=== PATIENT | female | born 1940 | race Caucasian/White ===

== ENCOUNTER 2019-04-28 09:06 | Outpatient (REF) | payer MEDICARE, SELFPAY ==
[2019-04-28 12:30] LABS: Estmated Average Glucose 157; Hemoglobin A1C 7.1 % (4.0-6.0)
[2019-04-28 12:43] LABS: Chol HDL Ratio 3.46 mg/dL (0.0-4.40); Cholesterol 97 mg/dL (0-200); Glucose 153 mg/dL (65-115); HDL Cholesterol 28 mg/dL (60-100); LDL Cholesterol Calculated 37 mg/dL (50-129); LDL HDL Ratio 1.32 RATIO (0.00-3.22); Triglycerides 160 mg/dL (0-150)
== END 2019-04-28 09:07 | disposition home or self-care (01) ==
LOC: LAB 09:06
PROVIDERS: Family Provider Family Medicine; PCP Family Medicine; Visit Provider Dermatology
DX: Z01.89 Encounter for other specified special examinations (principal)
CPT/HCPCS: 80061; 82947; 83036

== ENCOUNTER 2019-11-16 10:36 | Emergency (ER) | payer MEDICARE, SELFPAY ==
[2019-11-16 10:42] VITALS: BP 140/74; PULSE 84; RESP 18; TEMP 36.8; O2SAT 97; BMI 34.0
--- NOTE | 2019-11-16 10:50 | XR_ITS ---
WS: [id number] Sacrum and coccyx, 3 views, 11/16/2019 Clinical Data: fall Comparison: None. Findings: No fractures or dislocations are seen. The SI joints and pubic symphysis are unremarkable. No bone de struction or erosion is seen. There is calcification in the wall of the abdominal aorta and the common iliac vessels but no aneurys ms are seen. XR/XR sacrum coccyx min 2V [id number] Impression: Negative sacrum and coccyx.
--- NOTE | 2019-11-16 10:50 | CT_ITS ---
WS: [id number] CT HEAD TECHNIQUE: Noncontrast CT of the head obtained from the skullbase to the vertex. CLINICAL INFORMATION: fall, head injury COMPARISON: None. DLP: 1006.[address] scans at [facility] use at least one of these dose optimization techniques: automat ed exposure control; mA and/or kV adjustment per patient size (includes targeted exams where dose is matched to clinical indication); or iterative reconstruction. FINDINGS: No evidence of intracranial hemorrhage or mass effect. Ventricular system and basal cisterns are sage nt. Moderate small vessel changes with moderate parenchymal volume loss. Chronic lacunar infarcts lef t basal ganglia. No extra-axial fluid collections. No evidence of mass or mass effect. Normal tapia-wh ite differentiation. Soft tissue laceration with hollis overlying the parietal occipital calvarium. No underlying fractur es. CT/CT head wo con* [id number] IMPRESSION: 1. No evidence of intracranial hemorrhage or mass effect. 2. [id number] small vessel changes. Moderate parenchymal volume loss. 3. Soft tissue laceration with hollis parietal occipital calvarium. No underl sue fractures. 4. No extra-axial fluid collections. Notified ZENIA Burks at 11/16/2019 12:52 PM.
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
--- NOTE | 2019-11-16 11:02 | W.ED.FALL ---
HPI - Fall General: Chief Complaint: Fall Stated Complaint: FALL Time Seen by Provider: 11/16/19 10:37 History of Present Illness: HPI Narrative: Patient get out of truck going upstairs she fell backwards striking her left shoulder and the back of her head and sacrum. Complains about mid back pain and possible laceration head did arrive by ambulance. complaint: fall Onset (ago): minute(s) Fall from: standing and down stairs (#) Fall witnessed: yes, by family Place fall occurred: home Loss of consciousness: None Prolonged down time: no Symptoms prior to fall: none Context: tripped/slipped Location of injury: head and back Associated symptoms-after fall: Denies abdominal pain, chest pain or headache(s) Review of Systems Const: Denies: fever(s), chills or body aches Eyes: Denies: change in vision or blurry vision ENMT: Denies: throat pain or nasal congestion Card: Denies: chest pain or dyspnea on exertion Resp: Denies: dyspnea, productive cough or non-productive cough GI: Denies: abdominal pain, nausea or vomiting Musc: Reports: back pain; Denies: extremity pain Skin/Breast: Reports: other (Laceration possibly scalp); Denies: rash Neuro: Denies: headache(s) Psych: Denies: anxiety or depression Mingo/Lymph: Denies: easy bruising Physical Exam Const: COMMON NORMALS: no acute distress, average body habitus and patient oriented x3 HENMT: COMMON NORMALS: normocephalic HEAD & SCALP: normal to inspection and normocephalic FACE & SINUS: normal facial exam Eye: COMMON NORMALS: conjunctivae normal GENERAL EYE: appearance normal, both eyes and all related structures CONJUNCTIVA: Yes conjunctivae normal Neck/C-Spine: COMMON NORMALS: no JVD Chest: COMMONS NORMALS: normal inspection of the chest Resp: COMMON NORMALS: normal respiratory effort and clear to auscultation bilaterally AUSCULTATION: clear to auscultation bilaterally Cardio: COMMON NORMALS: no JVD, regular rate and regular rhythm RATE: regular rate RHYTHM: regular rhythm GI: COMMON NORMALS: Normal to inspection, nondistended, normoactive bowel sounds present Back/Pelvis: THORACIC SPINE/UPPER BACK: Yes thoracic spinal tenderness SACRUM: tenderness Extremity: COMMON NORMALS: normal to inspection and full ROM Neuro: COMMON NORMALS: patient oriented x3 Skin: NARRATIVE SKIN EXAM: Abrasion to the left shoulder blade possible laceration to scalp Procedures Laceration Laceration 1: Site: scalp Size (cm): 1 Description: stellate Number of sutures: 1 Technique: other (staple) Course Vital Signs: Vital signs: Vital Signs Temperature 98.3 F 11/16/19 10:42 Pulse Rate 84 11/16/19 10:42 Respiratory Rate 18 11/16/19 10:42 Blood Pressure 140/74 11/16/19 10:42 Pulse Oximetry 97 11/16/19 10:42 Coding Level of Care Code ED Social Media Designer for Chg Fwd Exam Comprehensive
[2019-11-16] MEDS: TRAMadol 50 mg Tablet PO (12:02)
[2019-11-16 12:05] VITALS: BP 131/70; PULSE 87; RESP 18; O2SAT 97
[2019-11-16 13:07] VITALS: BP 132/72; PULSE 85; RESP 18; TEMP 36.6; O2SAT 96
== END 2019-11-16 13:11 | disposition home or self-care (01) ==
PROVIDERS: Emergency Provider Nurse Practitioner Family; PCP Family Medicine
DX: S01.01XA Laceration without foreign body of scalp, initial encounter (principal); W10.8XXA Fall (on) (from) other stairs and steps, initial encounter
CPT/HCPCS: 12001; 12345; 70450; 72072; 72220; 99281; 99283

== ENCOUNTER 2021-01-19 21:33 | Emergency (ER) | payer MEDICARE, SELFPAY ==
[2021-01-19] VITALS (28 sets, daily range): BP systolic 92–125; BP diastolic 39–62; PULSE 97–106; RESP 18–33; O2SAT 85–96; BMI 32.5
--- NOTE | 2021-01-19 21:37 | XRR_ITS ---
PROCEDURE INFORMATION: Exam: XR Chest Exam date and time: 01/19/2021 9:37 PM Age: 80 years old Clinical indication: Dyspnea; Additional info: SOB TECHNIQUE: Imaging protocol: XR of the chest. Views: 1 view. Total images: 1 COMPARISON: CR XR thoracic spine 3V* [id number] 11/16/2019 11:08 AM FINDINGS: Lungs: No definitive visible active interstitial or alveolar airspace disease. Pleural spaces: Unremarkable. No pleural effusion. No pneumothorax. Heart/Mediastinum: Cardiac structures in configuration with arteriosclerosis. Bones/joints: Unremarkable for age. XR/XR chest 1V portable [id number] IMPRESSION: Nonacute. Radiation Dose CTDIVOL = (mGy): DLP = (mGy-cm)
--- NOTE | 2021-01-19 21:37 | ECG_ITS ---
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1940 Requested By: Francesca Sewell Order Number: [id number] Reading MD: TANIA PARKINSON Measurements Intervals [place] Rate: 104 P: -1 MD: 161 QRS: -52 QRSD: 112 T: -11 QT: 388 QTc: 511 Interpretive Statements SINUS TACHYCARDIA INCOMPLETE RIGHT BUNDLE BRANCH BLOCK [90+ ms QRS DURATION, TERMINAL R IN V1/V2, 40+ ms S IN I/aVL/V4/V5/V6] LEFT ANTERIOR FASCICULAR BLOCK [QRS AXIS <= -45, QR IN I, RS IN II] POSSIBLE ANTERIOR MYOCARDIAL INFARCTION , PROBABLY OLD [30 ms Q WAVE IN V3/V4, OR R < 0.2 mV IN V4] No previous ECG available for comparison Electronically Signed On 01-20-2021 0:10:14 CDT by TANIA PARKINSON [id number]
--- NOTE | 2021-01-19 21:44 | W.ED.COVID ---
HPI - COVID General: Chief Complaint: COVID symptoms Stated Complaint: COVID +/AFIB RVR Time Seen by Provider: 01/19/21 21:33 Source: patient Mode of arrival: ambulatory Limitations: no limitations Triage information: Has fever, cough or shortness of breath. Exposure to COVID + person last 14 days History of Present Illness: HPI Narrative: 80-year-old female who states she was diagnosed with Covid last Wednesday. States she had increasing cough dyspnea and felt weak tonight was tachycardic EMS states that her heart rate was in the 160s to give her Cardizem it is now 105 incised tach questionable A. fib earlier she has no history of A. fib. She denies any vomiting or diarrhea patient's pulse ox is in the mid 80s COVID 19 common symptoms: positive productive cough and dyspnea; negative fever(s), chills, body aches, headache(s), throat pain, nausea, vomiting or diarrhea COVID Results: No Data to Display Review of Systems Const: Denies: fever(s), chills, body aches or change in appetite Eyes: Denies: blurry vision or eye discomfort ENMT: Denies: throat pain or dental pain Card: Reports: irregular heart rhythm Resp: Reports: dyspnea and productive cough GI: Denies: abdominal pain, nausea, vomiting or diarrhea : Denies: dysuria Musc: Denies: neck pain or back pain Skin/Breast: Denies: rash Neuro: Denies: headache(s) Psych: Denies: depression Mingo/Lymph: Denies: easy bruising All/Imm: Denies: urticaria PFSH ED PFSH: Medical History Coronary artery disease Diabetes Hypercholesterolemia Hypertension Sleep apnea Surgical History H/O: hysterectomy History of PTCA History of tonsillectomy Hx of cholecystectomy Family History Father Hypertension Social History Smoking and tobacco status: former smoker Physical Exam Const: COMMON NORMALS: patient oriented x3 GENERAL APPEARANCE: ill appearing HENMT: COMMON NORMALS: normocephalic and atraumatic HEAD & SCALP: normocephalic and atraumatic Eye: COMMON NORMALS: Equal, round and reactive pupils present and EOMs intact bilaterally PUPIL: Yes Equal, round and reactive pupils present Neck/C-Spine: COMMON NORMALS: full ROM and supple Chest: COMMONS NORMALS: normal inspection of the chest and normal palpation of entire chest wall Resp: COMMON NORMALS: No use of accessory muscles EFFORT & INSPECTION: Yes tachypneic AUSCULTATION: rales Cardio: COMMON NORMALS: regular rhythm and No murmurs present (Cardio) RATE: tachycardic RHYTHM: regular rhythm GI: COMMON NORMALS: Normal to inspection, nondistended, normoactive bowel sounds present, Soft to palpation, non-tender and no masses PALPATION: Yes Soft to palpation Extremity: COMMON NORMALS: normal to inspection and full ROM Neuro: COMMON NORMALS: patient oriented x3, moves all extremities and no focal motor deficits Psych: COMMON NORMALS: mental status grossly normal, Normal thought process present and cooperative THOUGHT PROCESS: Normal thought process present Skin: COMMON NORMALS: no rashes or lesions noted and no wounds GENERAL SKIN EXAM: no rashes or lesions noted Course Vital Signs: Vital signs: Vital Signs Pulse Rate 106 H 01/19/21 22:59 Respiratory Rate 20 H 01/19/21 22:59 Blood Pressure 92/62 01/19/21 21:38 Pulse Oximetry 96 01/19/21 23:17 MDM - COVID MDM Narrative: Medical decision making narrative: Patient presents here with Covid pneumonia increasing hypoxia her tachycardia is improved her heart rate now is in the 90s patient is requiring 3 L of oxygen. I spoke to physician at [facility] in [place] and will transfer there due to bed availability. Lab Data: Labs: Lab Results 01/19/21 01/19/21 01/19/21 21:43 21:43 21:43 WBC 16.3 10^3/uL H 10 ^3/uL (4.0-10.0) RBC 3.48 10^6/uL L 10 ^6/uL (4.1-5.3) Hgb 11.8 g/dL g/dL (11.5-15.3) Hct 35.2 % L % (37.0-47.0) MCV 101.1 fl H fl (81-99) MCH 33.9 pg pg (28.0-34.0) MCHC 33.5 g/dL g/dL (30.0-36.0) RDW 14.1 % % (12.1-15.1) Plt Count 285 10^3/cmm 10^3 /cmm (130-400) MPV 12.3 fL H fL (7.4-10.4) Neut % (Auto) 88.9 % % Lymph % (Auto) 5.3 % % Johnson % (Auto) 4.1 % % Eos % (Auto) 0.5 % % Baso % (Auto) 0.2 % % Neut # (Auto) 14.53 10^3/uL H 1 0^3/uL (1.8-7.7) Lymph # (Auto) 0.9 10^3/uL 10^3/ uL (0.8-4.8) Johnson # (Auto) 0.7 10^3/uL 10^3/ uL (0.2-0.9) Eos # (Auto) 0.1 10^3/uL 10^3/ uL (0.0-0.8) Baso # (Auto) 0.0 10^3/uL 10^3/ uL (0.0-0.1) Nucleated RBC % (a uto) 0 % % Nucleated RBCs # 0.0 /100WBC /100W BC PT 15.20 SECONDS H S ECONDS (12.1-14.9) INR 1.17 (0.8-1.2) D-Dimer 2.04 ug/mIFEU H u g/mIFEU (0-0.59) Specimen Type Sample Site ABG pH ABG pCO2 ABG pO2 ABG HCO3 ABG Base Excess Magno Test Hematocrit O2 Delivery Device O2 Liters/Min FiO2 Passenger Service Agent ID Sodium 128 mmol/L L mmol /L (136-145) Potassium 4.8 mmol/L mmol/L (3.5-5.1) Chloride 93 mmol/L L mmol/ L (98-107) Carbon Dioxide 18 mmol/L L mmol/ L (22-29) Anion Gap 21.8 H (5-19) BUN 28 mg/dL H mg/dL (8-23) Creatinine 1.2 mg/dL H mg/dL (0.5-0.9) GFR Calculation Not Reportable Glucose 173 mg/dL H mg/dL (65-115) Calculated Osmolal ity 276 mOsm/kg L mOs m/kg (285-295) Lactic Acid Calcium 8.5 mg/dL mg/dL (8.5-10.5) Total Bilirubin 0.5 mg/dL mg/dL (0.15-1.2) AST 28 U/L U/L (0-32) ALT 19 U/L U/L (0-33) Alkaline Phosphata se 78 IU/L IU/L (35-105) C-Reactive Protein 192.0 mg/L H mg/L (0.0-4.9) NT-Pro-B Natriuret Pep 1371 pg/mL H pg/m L (0-450) Total Protein 6.1 g/dL L g/dL (6.6-8.7) Albumin 2.8 g/dL L g/dL (3.5-5.2) Globulin 3.3 g/dL g/dL (1.3-4.6) 01/19/21 01/19/21 22:50 22:55 WBC RBC Hgb Hct MCV MCH MCHC RDW Plt Count MPV Neut % (Auto) Lymph % (Auto) Johnson % (Auto) Eos % (Auto) Baso % (Auto) Neut # (Auto) Lymph # (Auto) Johnson # (Auto) Eos # (Auto) Baso # (Auto) Nucleated RBC % (a uto) Nucleated RBCs # PT INR D-Dimer Specimen Type Arterial Sample Site Radial, right ABG pH 7.33 L (7.35-7.45) ABG pCO2 33.0 mmHg L mmHg (35-45) ABG pO2 65.4 mmHg L mmHg (80.0-100.0) ABG HCO3 17.4 mmol/L L mmo l/L (22-26) ABG Base Excess -7.5 mmol/L L mmo l/L (-2.0-2.0) Magno Test Pos Hematocrit 37.6 % % (37-47) O2 Delivery Device Nc O2 Liters/Min 4.0 % % FiO2 36.0 % % Passenger Service Agent ID glc Sodium Potassium Chloride Carbon Dioxide Anion Gap BUN Creatinine GFR Calculation Glucose Calculated Osmolal ity Lactic Acid 3.1 mmol/L H mmol /L (0.5-2.2) Calcium Total Bilirubin AST ALT Alkaline Phosphata se C-Reactive Protein NT-Pro-B Natriuret Pep Total Protein Albumin Globulin Imaging Data: CT Chest: Attestation: I personally reviewed and interpreted this imaging study as follows: Radiologist's impression: [employer] [facility] [address] [place] [address] CT Scan Report Signed Patient: Analia Gotti Unit #: [id number] : 1940 Age/Sex: 80 / F ADM Date: 01/19/21 Loc: ER Room/Bed: Attending Dr: Ordering Provider/Ordering MD: Francesca Sewell MD Date of Service: 01/19/21 Procedure(s): CT angio chest PE protcl [id number] Accession Number(s): [id number] Report Number: [id number] The PROCEDURE INFORMATION: Exam: CTA Chest With Contrast Exam date and time: 01/19/2021 10:14 PM Age: 80 years old Clinical indication: Cough and shortness of breath; Patient HX: Covid+ w SOB TECHNIQUE: Imaging protocol: Computed tomographic angiography of the chest with contrast. 3D rendering (Not supervised by radiologist): MIP and/or 3D reconstructed images were created by the technologist. Total images: 798 Radiation optimization: All CT scans at this facility use at least one of these dose optimization techniques: automated exposure control; mA and/or kV adjustment per patient size (includes targeted exams where dose is matched to clinical indication); or iterative reconstruction. Contrast material: VISI 320; Contrast volume: 69 ml; Contrast route: INTRAVENOUS (IV); COMPARISON: CR (CHEST, ) 01/19/2021 10:12 PM RADIATION DOSE METRICS: Total DLP (mGy-cm): 513.06 FINDINGS: Pulmonary arteries: No visible evidence of pulmonary embolism/pulmonary arterial thrombus. Aorta: The thoracic aorta is nonaneurysmal. No visible intimal flap or dissection. Moderate arterial sclerotic disease. Thyroid: Small 11 mm nodule inferior pole left thyroid. No follow-up recommended. Lungs: Bilateral, predominantly peripheral, patches of ground-glass interstitial lung disease opacification consistent with active interstitial pneumonitis. Overall constellation of findings would be consistent with Covid-19 pneumonitis. No visible consolidated alveolar airspace disease. Pleural spaces: No pneumothorax. No pleural effusion. Heart: Mild cardiomegaly. No visible pericardial effusion. Advanced 3 vessel coronary artery disease. Lymph nodes: Few marginally prominent mediastinal and hilar lymph nodes most likely reactive in nature. Liver: Small simple cyst medial segment right hepatic lobe. Gallbladder and bile ducts: Status post cholecystectomy. Adrenal glands: Small left adrenal nodule measuring 13 mm. Right adrenal gland unremarkable. Kidneys and ureters: Simple cyst superior pole left kidney. Bones/joints: No visible acute osseous abnormality. Degenerative disease and degenerative disc disease of the spine. Soft tissues: Unremarkable. CT/CT angio chest PE protcl [id number] IMPRESSION: 1. No visible evidence of pulmonary embolism/pulmonary arterial thrombus. 2. Bilateral, predominantly peripheral, patches of ground-glass interstitial lung disease opacification consistent with active interstitial pneumonitis. Overall constellation of findings would be consistent with Covid-19 pneumonitis. 3. Advanced 3 vessel coronary artery disease. 4. Few marginally prominent mediastinal and hilar lymph nodes most likely reactive in nature. 5. Small left adrenal nodule measuring only 13 mm. Consider 12 month follow-up adrenal CT. (Reference: Kathya) COMMENTS: 1. Consistent with the [place] [employer] [employer]'s Incidental Findings Committee white paper (J Am Johnny Radiol 2015): In patients aged 35 years and older with an incidental thyroid nodule equal to or greater than 1.[address], MRI or extrathyroidal US, further evaluation with dedicated thyroid US is recommended for patients with normal life expectancy and without comorbidities. For smaller nodules without suspicious features, no further evaluation or follow up is recommended. 2. Consistent with the [place] [employer]'s Incidental Findings Committee white paper (J Am Johnny Radiol 2018): Any incidental renal lesion less than 1 cm or classified as too small to characterize, or any incidental cystic renal lesion characterized as simple-appearing, is likely benign. No follow-up imaging is recommended for these lesions per consensus recommendations based on imaging criteria. REFERENCES: Kathya ROMERO, et al. Management of Incidental Adrenal Masses: A White Paper of the ACR Incidental Findings Committee. J Am Johnny Radiol. 2017;14(8):4085-4221. Radiation Dose CTDIVOL = (mGy): DLP = 513.06 (mGy-cm) Dictated By: Jp Owens Signed By: Jp Owens Signed Date/Time: 01/20/21 0007 DD/ 2214 EKG Data: EKG 1: Attestation: I personally reviewed and interpreted this EKG as follows: EKG interpretation date: 01/19/21 EKG interpretation time: 21:43 Interpretation: sinus tach hr [address] or t wave abnormalities qrs 112 [id number] COVID Results: No Data to Display Discharge Plan Discharge Patient Disposition: Xfer Short-Term Hosp Clinical Impression: Pneumonia due to 2019-nCoV Condition: Stable Referrals: Angi Gan DO [Primary Care Provider] - Coding Level of Care Code ED Naval Aircrewman for Chg Fwd Exam Comprehensive
[2021-01-19 21:58] LABS: Basophils % 0.2 %; Eosinophils # 0.1 10^3/uL (0.0-0.8); Eosinophils % 0.5 %; Hematocrit 35.2 % (37.0-47.0); Hemoglobin 11.8 g/dL (11.5-15.3); Lymphocytes # 0.9 10^3/uL (0.8-4.8); Lymphocytes % 5.3 %; Mean Corpuscular HGB Conc 33.5 g/dL (30.0-36.0); Mean Corpuscular Hemoglobin 33.9 pg (28.0-34.0); Mean Corpuscular Volume 101.1 fl (81-99); Mean Platelet Volume 12.3 fL (7.4-10.4); Monocytes # 0.7 10^3/uL (0.2-0.9); Monocytes % 4.1 %; Neutrophils # 14.53 10^3/uL (1.8-7.7); Neutrophils % 88.9 %; Nucleated Red Blood Cells % 0 %; Platelet Count 285 10^3/cmm (130-400); Red Blood Count 3.48 10^6/uL (4.1-5.3); Red Cell Distribution Width 14.1 % (12.1-15.1); White Blood Count 16.3 10^3/uL (4.0-10.0)
[2021-01-19 22:10] LABS: INR 1.17 (0.8-1.2)
[2021-01-19] MEDS: dexamethasone 4 mg/mL INJ 6 MG IVP (22:11)
[2021-01-19] MEDS: sodium chloride 0.9% 1,000 ML 999 ML IV (22:11)
[2021-01-19 22:12] LABS: D Dimer 2.04 ug/mIFEU (0-0.59)
--- NOTE | 2021-01-19 22:14 | CTR_ITS ---
The PROCEDURE INFORMATION: Exam: CTA Chest With Contrast Exam date and time: 01/19/2021 10:14 PM Age: 80 years old Clinical indication: Cough and shortness of breath; Patient HX: Covid+ w SOB TECHNIQUE: Imaging protocol: Computed tomographic angiography of the chest with contrast. 3D rendering (Not supervised by radiologist): MIP and/or 3D reconstructed images were created by the technologist. Total images: 798 Radiation optimization: All CT scans at this facility use at least one of these dose optimization techniques: automated exposure control; mA and/or kV adjustment per patient size (includes targeted exams where dose is matched to clinical indication); or iterative reconstruction. Contrast material: VISI 320; Contrast volume: 69 ml; Contrast route: INTRAVENOUS (IV); COMPARISON: CR (CHEST, ) 01/19/2021 10:12 PM RADIATION DOSE METRICS: Total DLP (mGy-cm): 513.06 FINDINGS: Pulmonary arteries: No visible evidence of pulmonary embolism/pulmonary arterial thrombus. Aorta: The thoracic aorta is nonaneurysmal. No visible intimal flap or dissection. Moderate arterial sclerotic disease. Thyroid: Small 11 mm nodule inferior pole left thyroid. No follow-up recommended. Lungs: Bilateral, predominantly peripheral, patches of ground-glass interstitial lung disease opacification consistent with active interstitial pneumonitis. Overall constellation of findings would be consistent with Covid-19 pneumonitis. No visible consolidated alveolar airspace disease. Pleural spaces: No pneumothorax. No pleural effusion. Heart: Mild cardiomegaly. No visible pericardial effusion. Advanced 3 vessel coronary artery disease. Lymph nodes: Few marginally prominent mediastinal and hilar lymph nodes most likely reactive in nature. Liver: Small simple cyst medial segment right hepatic lobe. Gallbladder and bile ducts: Status post cholecystectomy. Adrenal glands: Small left adrenal nodule measuring 13 mm. Right adrenal gland unremarkable. Kidneys and ureters: Simple cyst superior pole left kidney. Bones/joints: No visible acute osseous abnormality. Degenerative disease and degenerative disc disease of the spine. Soft tissues: Unremarkable. CT/CT angio chest PE protcl [id number] IMPRESSION: 1. No visible evidence of pulmonary embolism/pulmonary arterial thrombus. 2. Bilateral, predominantly peripheral, patches of ground-glass interstitial lung disease opacification consistent with active interstitial pneumonitis. Overall constellation of findings would be consistent with Covid-19 pneumonitis. 3. Advanced 3 vessel coronary artery disease. 4. Few marginally prominent mediastinal and hilar lymph nodes most likely reactive in nature. 5. Small left adrenal nodule measuring only 13 mm. Consider 12 month follow-up adrenal CT. (Reference: Kathya) COMMENTS: 1. Consistent with the [employer]'s Incidental Findings Committee white paper (J Am Johnny Radiol 2015): In patients aged 35 years and older with an incidental thyroid nodule equal to or greater than 1.[address], MRI or extrathyroidal US, further evaluation with dedicated thyroid US is recommended for patients with normal life expectancy and without comorbidities. For smaller nodules without suspicious features, no further evaluation or follow up is recommended. 2. Consistent with the [employer]'s Incidental Findings Committee white paper (J Am Johnny Radiol 2018): Any incidental renal lesion less than 1 cm or classified as too small to characterize, or any incidental cystic renal lesion characterized as simple-appearing, is likely benign. No follow-up imaging is recommended for these lesions per consensus recommendations based on imaging criteria. REFERENCES: Kathya ROMERO, et al. Management of Incidental Adrenal Masses: A White Paper of the ACR Incidental Findings Committee. J Am Johnny Radiol. 2017;14(8):3109-9135. Radiation Dose CTDIVOL = (mGy): DLP = 513.06 (mGy-cm)
[2021-01-19 22:25] LABS: Alanine Aminotransferase 19 U/L (0-33); Albumin Level 2.8 g/dL (3.5-5.2); Alkaline Phosphatase 78 IU/L (35-105); Anion Gap 21.8 (5-19); Aspartate Amino Transferase 28 U/L (0-32); Blood Urea Nitrogen 28 mg/dL (8-23); Calcium 8.5 mg/dL (8.5-10.5); Carbon Dioxide 18 mmol/L (22-29); Chloride 93 mmol/L (98-107); Globulin 3.3 g/dL (1.3-4.6); Glucose 173 mg/dL (65-115); NT Pro B Type Natriuretic Pept 1371 pg/mL (0-450); Osmolality Calculated 276 mOsm/kg (285-295); Potassium 4.8 mmol/L (3.5-5.1); Sodium 128 mmol/L (136-145); Total Bilirubin 0.5 mg/dL (0.15-1.2); Total Protein 6.1 g/dL (6.6-8.7)
[2021-01-19] MEDS: albuterol 8 gm MDI 2 PUFF INHALATION (22:50)
[2021-01-19 23:05] LABS: ABG PH Result 7.33 (7.35-7.45); Arterial Blood Gas Hematocrit 37.6 % (37-47); Base Excess ABG -7.5 mmol/L (-2.0-2.0); Blood Gas Allen Test Pos; Blood Gas Operator Identificat glc; Blood Gas Sample Site Radial, right; Blood Gas Sample Type Arterial; HCO3 ABG 17.4 mmol/L (22-26); Oxygen Device NC; PO2 ABG 65.4 mmHg (80.0-100.0)
[2021-01-19 23:18] LABS: Lactic Sepsis W/Reflex 3.1 mmol/L (0.5-2.2)
[2021-01-19] MEDS: iodixanol 320 mg/mL 100mL Btl IV (23:35)
[2021-01-20] VITALS: BP 119/50; PULSE 100; RESP 31; O2SAT 93
[2021-01-20 00:05] VITALS: BP 107/45; PULSE 99; RESP 32; O2SAT 94
[2021-01-20 00:10] VITALS: BP 107/45; PULSE 101; RESP 32; O2SAT 94
[2021-01-20 00:54] LABS: Reflex Lactate Order REFLEX LACTIC ORDERD
== END 2021-01-20 01:48 | disposition short-term general hospital (02) ==
PROVIDERS: Emergency Provider Emergency Medicine; PCP Family Medicine
DX: U07.1 COVID-19 (principal); J12.82 Pneumonia due to coronavirus disease 2019; Z87.891 Personal history of nicotine dependence
CPT/HCPCS: 36600; 71045; 71275; 80053; 82803; 83605; 83880; 85025; 85378; 85610; 86140; 93005; 94640; 96361; 96374; 99285; J1100; J3535; J7030; Q9967

== ENCOUNTER → 2021-06-13 08:58 | Outpatient (BNVA) | payer MEDICARE, SELFPAY | PROVIDERS: PCP Family Medicine; Visit Provider Internal Medicine | DX: I25.10 Atherosclerotic heart disease of native coronary artery without angina pectoris (principal); I10 Essential (primary) hypertension; E78.00 Pure hypercholesterolemia, unspecified; E11.9 Type 2 diabetes mellitus without complications | CPT/HCPCS: 99214 ==

== ENCOUNTER → 2021-12-12 08:27 | Outpatient (BNVA) | payer MEDICARE, SELFPAY | PROVIDERS: PCP Family Medicine; Visit Provider Internal Medicine | DX: I25.10 Atherosclerotic heart disease of native coronary artery without angina pectoris (principal); I10 Essential (primary) hypertension; Z87.891 Personal history of nicotine dependence; G47.30 Sleep apnea, unspecified; E78.00 Pure hypercholesterolemia, unspecified; E11.9 Type 2 diabetes mellitus without complications; Z79.84 Long term (current) use of oral hypoglycemic drugs | CPT/HCPCS: 99214 ==

== ENCOUNTER → 2022-04-06 07:56 | Outpatient (BNVA) | payer MEDICARE, SELFPAY | PROVIDERS: PCP Family Medicine; Visit Provider Podiatrist Foot & Ankle Surgery | DX: E11.9 Type 2 diabetes mellitus without complications (principal); I73.9 Peripheral vascular disease, unspecified; B35.1 Tinea unguium; Z89.421 Acquired absence of other right toe(s); Z79.84 Long term (current) use of oral hypoglycemic drugs | CPT/HCPCS: 11055; 11721; 99204 ==

== ENCOUNTER 2022-05-11 09:13 | Emergency (ER) | payer MEDICARE, SELFPAY ==
[2022-05-11 09:14] VITALS: BP 194/94; PULSE 97; O2SAT 97; BMI 31.2
--- NOTE | 2022-05-11 09:20 | XR_ITS ---
WS: [id number] Exam: XR chest 1V portable [id number] Date/Time of Exam: 05/11/2022 9:30 AM Reason For Exam: dyspnea/cough Comparison 01/19/2021. The lungs are fully expanded and clear. Normal cardiomediastinal silhouette. No pleural effusions. Mick ny structures are intact. Monitoring leads superimpose the chest. XR/XR chest 1V portable [id number] IMPRESSION: 1. No acute cardiopulmonary finding.
--- NOTE | 2022-05-11 09:20 | ECG_ITS ---
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 Measurements Intervals [place] Rate: 100 P: 0 VT: 0 QRS: -73 QRSD: 158 T: -4 QT: 391 QTc: 505 Interpretive Statements ATRIAL FLUTTER/TACHYCARDIA WITH RAPID VENTRICULAR RESPONSE RIGHT BUNDLE BRANCH BLOCK [120+ ms QRS DURATION, UPRIGHT V1, 40+ ms S IN I/aVL/V4/V5/V6] LEFT ANTERIOR FASCICULAR BLOCK [QRS AXIS <= -45, QR IN I, RS IN II] POSSIBLE ANTERIOR MYOCARDIAL INFARCTION , OF INDETERMINATE AGE [30 ms Q WAVE IN V3/V4, OR R < 0.2 mV IN V4] INFERIOR MYOCARDIAL INFARCTION , OF INDETERMINATE AGE [40+ ms Q WAVE AND/OR ST/T ABNORMALITY IN II/aVF] Compared to ECG 01/19/2021 21:43:55.Right bundle-branch block now present Sinus tachycardia no longer present.Incomplete right bundle-branch block no longer present.Myocardial infarct finding still present Electronically Signed On 05-11-2022 19:06:50 WATER QUALITY MANAGER by Selene Hernandez M.D. [id number]
[2022-05-11 09:33] VITALS: BP 173/84; PULSE 96; RESP 14; O2SAT 95
[2022-05-11 09:48] LABS: Basophils # 0.1 10^3/uL (0.0-0.1); Basophils % 0.7 %; Eosinophils # 0.1 10^3/uL (0.0-0.8); Eosinophils % 1.3 %; Hemoglobin 10.7 g/dL (11.5-15.3); Lymphocytes # 0.7 10^3/uL (0.8-4.8); Lymphocytes % 8.2 %; Mean Corpuscular HGB Conc 33.4 g/dL (30.0-36.0); Mean Corpuscular Hemoglobin 34.6 pg (28.0-34.0); Mean Corpuscular Volume 103.6 fl (81-99); Mean Platelet Volume 11.7 fL (7.4-10.4); Monocytes # 0.5 10^3/uL (0.2-0.9); Monocytes % 5.7 %; Neutrophils # 7.46 10^3/uL (1.8-7.7); Neutrophils % 83.7 %; Nucleated Red Blood Cells % 0 %; Platelet Count 186 10^3/cmm (130-400); Red Blood Count 3.09 10^6/uL (4.1-5.3); Red Cell Distribution Width 14.6 % (12.1-15.1); White Blood Count 8.9 10^3/uL (4.0-10.0)
[2022-05-11 10:04] VITALS: BP 168/100; PULSE 96; RESP 15; O2SAT 97
[2022-05-11 10:06] LABS: Troponin(5th) Baseline 17 ng/L (0-10)
--- NOTE | 2022-05-11 10:20 | ED_ITS ---
HPI - Chest Pain General: Chief Complaint: Chest Pain Stated Complaint: CHEST PAIN Time Seen by Provider: 05/11/22 09:18 Source: patient Mode of arrival: EMS History of Present Illness: 81-year-old female presents emergency room co mplaining of lightheadedness and feeling anxious that she will have another heart attack. When she woke up this morning said her left arm was numb and tingly and it felt weak that resolved shortly after waking up she felt like it had been positional and had fallen asleep when she arrives here she has full function arm she denies having any chest pain at all this morning no other symptoms she is awake and alert with no significant complaints or deficits. You Associated symptoms: Deny abdominal pain, diaphoresis, dyspnea, fever(s), leg edema, nausea, palpitations, sense of impending doom, syncope or vomiting Treatment prior to arrival: none Review of Systems Const: Denies: fever(s), chills, fatigue, malaise or diaphoresis ENMT: Denies: throat pain, ear or mastoid pain, nasal discharge or nasal congestion Card: Denies: palpitations or syncope Resp: Denies: dyspnea GI: Denies: abdominal pain, nausea or vomiting : Denies: flank pain, difficulty voiding, dysuria, urinary frequency or urinary urgency Skin/Breast: Denies: rash or pruritus PFSH ED PFSH: Medical History Coronary artery disease Diabetes Hypercholesterolemia Hypertension Sleep apnea Surgical History H/O: hysterectomy History of PTCA History of tonsillectomy Hx of cholecystectomy Family History Father Hypertension Social History Smoking and tobacco status: former smoker Alcohol intake: never Physical Exam Const: GENERAL APPEARANCE: cooperative and comfortable ORIENTATION/CONSCIOUSNESS: Yes awake, Yes oriented to person, Yes oriented to place and Yes oriented to time HENMT: COMMON NORMALS: normocephalic, atraumatic and hearing grossly normal bilaterally HEAD & SCALP: normocephalic and atraumatic Resp: COMMON NORMALS: normal respiratory effort, No retractions, No use of accessory muscles and clear to auscultation bilaterally AUSCULTATION: clear to auscultation bilaterally Cardio: COMMON NORMALS: regular rate, regular rhythm and No murmurs present (Cardio) RATE: regular rate RHYTHM: regular rhythm GI: COMMON NORMALS: Soft to palpation and No hepatosplenomegaly present AUSCULTATION: Yes normoactive bowel sounds PALPATION: Yes Soft to palpation, No Tenderness to palpation present (GI), No Guarding due to palpation present (GI) and Yes No hepatosplenomegaly present Extremity: COMMON NORMALS: normal to inspection, capillary refill normal, no clubbing, cyanosis or edema, no calf tenderness and no pedal edema Neuro: SENSORIUM/ORIENTATION: Yes oriented to person, Yes oriented to place and Yes oriented to time Skin: COMMON NORMALS: no rashes or lesions noted GENERAL SKIN EXAM: no rashes or lesions noted Course 2 Vital Signs: Vital signs: Vital Signs Pulse Rate 101 H 05/11/22 11:31 Respiratory Rate 19 H 05/11/22 11:31 Blood Pressure 154/82 05/11/22 11:31 Pulse Oximetry 95 05/11/22 11:31 Oxygen Delivery Me thod 05/11/22 11:00 MDM - Chest Pain Medical Decision Making Patient is a completely asymptomatic when I seen her EKG Labs and imaging reviewed. Her NIH score at bedside is 0. She has no weakness. Reviewed susana mariano with her we will discharge patient home continue her current medications recheck for any problems or worsening of symptoms. Medical Records I reviewed the patient's medical records. Lab Data I reviewed the patient's lab results. 05/11/22 09:40 05/11/22 09:40 Radiology Impressions Chest X-Ray 05/11/22 09:20 IMPRESSION: 1. No acute cardiopulmonary finding. Laboratory Results WBC 8.9 10^3/uL (4.0-10.0) 05/11/22 09:40 RBC 3.09 10^6/uL (4.1-5.3) L 05/11/22 09:40 Hgb 10.7 g/dL (11.5-15.3) L 05/11/22 09:40 Hct 32.0 % (37.0-47.0) L 05/11/22 09:40 MCV 103.6 fl (81-99) H 05/11/22 09:40 MCH 34.6 pg (28.0-34.0) H 05/11/22 09:40 MCHC 33.4 g/dL (30.0-36.0) 05/11/22 09:40 RDW 14.6 % (12.1-15.1) 05/11/22 09:40 Plt Count 186 10^3/cmm (130-400) 05/11/22 09:40 MPV 11.7 fL (7.4-10.4) H 05/11/22 09:40 Neut % (Auto) 83.7 % 05/11/22 09:40 Lymph % (Auto) 8.2 % 05/11/22 09:40 [place] % (Auto) 5.7 % 05/11/22 09:40 Eos % (Auto) 1.3 % 05/11/22 09:40 Baso % (Auto) 0.7 % 05/11/22 09:40 Neut # (Auto) 7.46 10^3/uL (1.8-7.7) 05/11/22 09:40 Lymph # (Auto) 0.7 10^3/uL (0.8-4.8) L 05/11/22 09:40 [place] # (Auto) 0.5 10^3/uL (0.2-0.9) 05/11/22 09:40 Eos # (Auto) 0.1 10^3/uL (0.0-0.8) 05/11/22 09:40 Baso # (Auto) 0.1 10^3/uL (0.0-0.1) 05/11/22 09:40 Nucleated RBC % (auto) 0 % 05/11/22 09:40 Nucleated RBCs # 0.0 /100WBC 05/11/22 09:40 Sodium 140 mmol/L (136-145) 05/11/22 09:40 Potassium 4.5 mmol/L (3.5-5.1) 05/11/22 09:40 Chloride 106 mmol/L (98-107) 05/11/22 09:40 Carbon Dioxide 21 mmol/L (22-29) L 05/11/22 09:40 Anion Gap 17.5 (5-19) 05/11/22 09:40 BUN 24 mg/dL (8-23) H 05/11/22 09:40 Creatinine 1.0 mg/dL (0.5-0.9) H 05/11/22 09:40 GFR Calculation Not Reportable 05/11/22 09:40 Glucose 210 mg/dL (65-115) H 05/11/22 09:40 Calculated Osmolality 300 mOsm/kg (285-295) H 05/11/22 09:40 Calcium 8.4 mg/dL (8.5-10.5) L 05/11/22 09:40 Total Bilirubin 0.3 mg/dL (0.15-1.2) 05/11/22 09:40 AST 14 U/L (0-32) 05/11/22 09:40 ALT 11 U/L (0-33) 05/11/22 09:40 Alkaline Phosphatase 50 U/L (35-105) 05/11/22 09:40 Troponin T Baseline 17 ng/L (0-10) H 05/11/22 09:40 Total Protein 5.9 g/dL (6.6-8.7) L 05/11/22 09:40 Albumin 3.3 g/dL (3.5-5.2) L 05/11/22 09:40 Globulin 2.6 g/dL (1.3-4.6) 05/11/22 09:40 Discharge Plan Discharge Patient Disposition: Home Clinical Impression: Light-headed, Arm numbness left Condition: Stable Prescriptions: No Action naproxen 375 mg tablet 375 mg PO BID PRN (Reason: Pain) hydrocodone-acetaminophen 10-325 mg tablet 1 tab PO Q6H PRN (Reason: Pain) lisinopril 20 mg tablet 20 mg PO DAILY Qty: 90 3RF multivitamin Tablet 1 tab PO DAILY glipizide 10 mg tablet extended release 24hr 10 mg PO BID simvastatin 10 mg tablet 10 mg PO DAILY clopidogrel 75 mg tablet 75 mg PO DAILY carvedilol 3.125 mg tablet 1.56 mg PO BID Rx Instructions: 1/2 tablet BID calcium carbonate [Calcium 500] 500 mg calcium (1,250 mg) Tablet 500 mg PO DAILY aspirin 81 mg Tablet,Chewable 81 mg PO DAILY allopurinol 300 mg tablet 300 mg PO DAILY oxybutynin chloride 5 mg tablet 5 mg PO TID metformin 500 mg tablet extended release 24 hr 1,000 mg PO BID cholecalciferol (vitamin D3) [Vitamin D3] 25 mcg (1,000 unit) Capsule 25 mcg PO DAILY vitamin B complex Tablet 1 tab PO DAILY Discharge Orders: Discharge ED (Routine); Ordered 05/11/22 Ordered By: Hiren Duffy Referrals: Angi Gan DO [Primary Care Provider] - Patient Instructions: Opioid Safety, Pain Management Activity Restrictions/Additional Instructions: You were seen today for lightheadedness left arm numbness. History gave the left arm this numbness sounds like a positional vascular issue. Your laboratory testing EKG did not show anything acute. Follow-up with your primary care doctor return if you have further problems. Coding Level of Care Code ED Reimbursement Analyst for Janet Mayberry
[2022-05-11 10:24] LABS: Alanine Aminotransferase 11 U/L (0-33); Albumin Level 3.3 g/dL (3.5-5.2); Alkaline Phosphatase 50 U/L (35-105); Anion Gap 17.5 (5-19); Aspartate Amino Transferase 14 U/L (0-32); Blood Urea Nitrogen 24 mg/dL (8-23); Calcium 8.4 mg/dL (8.5-10.5); Carbon Dioxide 21 mmol/L (22-29); Chloride 106 mmol/L (98-107); Globulin 2.6 g/dL (1.3-4.6); Glucose 210 mg/dL (65-115); Osmolality Calculated 300 mOsm/kg (285-295); Potassium 4.5 mmol/L (3.5-5.1); Sodium 140 mmol/L (136-145); Total Bilirubin 0.3 mg/dL (0.15-1.2); Total Protein 5.9 g/dL (6.6-8.7)
[2022-05-11 10:30] VITALS: BP 160/78; PULSE 100; RESP 21; O2SAT 93
[2022-05-11 11:00] VITALS: BP 154/82; PULSE 101; RESP 16; O2SAT 98
[2022-05-11 11:31] VITALS: BP 154/82; PULSE 101; RESP 19; O2SAT 95
== END 2022-05-11 11:32 | disposition home or self-care (01) ==
PROVIDERS: Emergency Provider Family Medicine; PCP Family Medicine
DX: R42 Dizziness and giddiness (principal); R20.0 Anesthesia of skin; Z79.82 Long term (current) use of aspirin; Z79.84 Long term (current) use of oral hypoglycemic drugs; Z79.02 Long term (current) use of antithrombotics/antiplatelets; I25.10 Atherosclerotic heart disease of native coronary artery without angina pectoris; E11.9 Type 2 diabetes mellitus without complications; I10 Essential (primary) hypertension; Z87.891 Personal history of nicotine dependence
CPT/HCPCS: 71045; 80053; 84484; 85025; 93005; 99285

== ENCOUNTER → 2022-06-15 07:57 | Outpatient (BNVA) | payer MEDICARE, SELFPAY | PROVIDERS: PCP Family Medicine; Visit Provider Podiatrist Foot & Ankle Surgery | DX: I73.9 Peripheral vascular disease, unspecified (principal); E11.9 Type 2 diabetes mellitus without complications; B35.1 Tinea unguium; Z89.421 Acquired absence of other right toe(s); M79.671 Pain in right foot; M79.672 Pain in left foot | CPT/HCPCS: 11721 ==

== ENCOUNTER → 2022-06-19 10:02 | Outpatient (BNVA) | payer MEDICARE, SELFPAY | PROVIDERS: PCP Family Medicine; Visit Provider Internal Medicine | DX: I25.10 Atherosclerotic heart disease of native coronary artery without angina pectoris (principal); G47.30 Sleep apnea, unspecified; I10 Essential (primary) hypertension; E78.00 Pure hypercholesterolemia, unspecified; E11.9 Type 2 diabetes mellitus without complications; Z87.891 Personal history of nicotine dependence; Z79.82 Long term (current) use of aspirin; Z79.84 Long term (current) use of oral hypoglycemic drugs | CPT/HCPCS: 99214 ==

== ENCOUNTER 2022-07-10 08:35 | Outpatient (CLI) | payer MEDICARE, SELFPAY ==
--- NOTE | 2022-07-10 09:30 | USCV_ITS ---
Analia Gotti Age: 81 Gender: F : 1940 Exam Date: 07/10/2022 09:36 Ordering Phys: Aj Eli M.D ([email or web address]) Technologist: [place] [facility] [place]: PROCEDURES: The venous duplex Doppler examination of both lower extremities was performed in the standard fashion. In addition, the posterior tibial and peroneal trunk were evaluated. FINDINGS: Normal 2-D Doppler and augmentation and compressibility throughout the lower extremity venous structures. Additional imaging through the proximal calf veins also reveals no thrombus. Limited evaluation of the greater saphenous vein is patent with no thrombus. CONCLUSIONS No DVT bilateral lower extremities. Dr. Eliane Martin DO (Electronically Signed) Final Date: 10 July 2022 12:36 S
== END 2022-07-10 08:36 | disposition home or self-care (01) ==
LOC: RAD 08:40
PROVIDERS: PCP Family Medicine; Visit Provider Internal Medicine
DX: R22.43 Localized swelling, mass and lump, lower limb, bilateral (principal); M79.604 Pain in right leg
CPT/HCPCS: 93970

== ENCOUNTER 2022-07-16 10:19 | Outpatient (CLI) | payer MEDICARE, SELFPAY ==
--- NOTE | 2022-07-16 10:45 | USCV_ITS ---
Analia Gotti Age: 81 Gender: F : 1940 Exam Date: 07/16/2022 10:58 Ordering Phys: Aj Eli M.D ([email or web address]) Technologist: CT Exam Location: [facility] [place] Indication: Risk Factors: Previous Vascular Surgery: RIGHT LEFT BP: 142.0 / 80.00 BP: 145.0/ 87.00 0 0 Waveform Velocity (cm/s) Velocity (cm/s) Waveform Triphasic 86.4 Iliac Prox 62.5 Biphasic Triphasic 72.4 Iliac Mid 59.4 Biphasic Triphasic 77.3 Iliac Distal 58.4 Biphasic Biphasic 67.1 POSTDOCTORAL FELLOW 60.5 Triphasic Biphasic 43.1 SFA Prox 60.5 Triphasic Biphasic 51.1 SFA Mid 93.7 Biphasic Biphasic 68.5 SFA Dist 82.7 Biphasic Biphasic 40.1 POP 65.5 Biphasic Biphasic 49.3 UNIFIED COMMUNICATIONS ENGINEER 73.9 Biphasic Monophasic 32.7 DPA 33.8 Monophasic ROSAURA 0.9 0.9 FINDINGS Mild diffuse dense plaques in the iliac, femoral and popliteal arteries bilaterally Normal Doppler flow velocities Resting ROSAURA 0.9 bilaterally CONCLUSIONS Minimally diminished resting ROSAURA of 0.9 bilaterally suggesting mild peripheral artery disease. Minimal dense plaque in the iliac, femoral and popliteal arteries bilaterally Dr Selene Hernandez MD [facility] (Electronically Signed) Final Date: 17 July 2022 22:43 S
== END 2022-07-16 10:20 | disposition home or self-care (01) ==
LOC: RAD 10:22
PROVIDERS: PCP Family Medicine; Visit Provider Internal Medicine
DX: M79.604 Pain in right leg (principal); M79.605 Pain in left leg; I73.9 Peripheral vascular disease, unspecified
CPT/HCPCS: 93925

== ENCOUNTER 2022-08-12 08:24 | Outpatient (CLI) | payer MEDICARE, SELFPAY ==
--- NOTE | 2022-08-12 08:46 | CT_ITS ---
WS: [id number] CT ABDOMEN PELVIS TECHNIQUE: Noncontrast CT of the abdomen and pelvis with coronal and sagittal reformatted images. CLINICAL INFORMATION: HX OF NEPHROLITHIASIS COMPARISON: None. DLP: 588.[address] scans at [facility] use at least one of these dose optimization techniques: automated e xposure control; mA and/or kV adjustment per patient size (includes targeted exams where dose is matc hed to clinical indication); or iterative reconstruction. FINDINGS: Prior cholecystectomy. Small RIGHT hepatic cyst. Prior hysterectomy. Lung bases are well aerated. Fib rotic nodule in the lingula measuring 10 mm. Hepatomegaly. Cholecystectomy clips. Normal GE junction. Splenic artery calcifications. LEFT adrenal nodule measuring 10 mm. Aortic calcification. Dense vasc ular calcification. Dense SMA origin calcification. Dense RIGHT renal artery calcification. Sigmoid diverticulosis.Bilateral renal cortical atrophy. No obstructing renal or ureteral calculi. Bi lateral nonobstructing calyceal calculi. Vascular calcification. Lobulated exophytic LEFT renal lesio ns one of which is calcified. LEFT upper pole lesion measuring 1.4 cm solid appearance. This can be f urther evaluated with ultrasound. Renal cell carcinoma not excluded. CT/CT kidney stone [id number] IMPRESSION: 1. No obstructing renal or ureteral calculi. No hydronephrosis. 2. Bilateral renal cortical atrophy. 3. LEFT upper pole exophytic lesion measuring 1.4 cm is a solid appearance. Re nal cell carcinoma not excluded. Recommend ultrasound for further evaluation. A dditional partially calcified exophytic LEFT renal lesion. 4. Dense vascular calcification. 5. Cholecystectomy clips. 6. Prior hysterectomy. 7. Small 10 mm LEFT adrenal adenoma.
== END 2022-08-12 08:25 | disposition home or self-care (01) ==
PROVIDERS: PCP Family Medicine; Visit Provider Urology
DX: N39.0 Urinary tract infection, site not specified (principal); Z87.442 Personal history of urinary calculi; D35.02 Benign neoplasm of left adrenal gland; K76.89 Other specified diseases of liver; G31.89 Other specified degenerative diseases of nervous system; N28.9 Disorder of kidney and ureter, unspecified; K57.10 Diverticulosis of small intestine without perforation or abscess without bleeding
CPT/HCPCS: 74176

== ENCOUNTER → 2022-11-16 07:28 | Outpatient (BNVA) | payer MEDICARE, SELFPAY | PROVIDERS: PCP Family Medicine; Visit Provider Podiatrist Foot & Ankle Surgery | DX: B35.1 Tinea unguium (principal); E11.9 Type 2 diabetes mellitus without complications; I73.9 Peripheral vascular disease, unspecified; Z89.421 Acquired absence of other right toe(s); Z79.84 Long term (current) use of oral hypoglycemic drugs | CPT/HCPCS: 11721 ==

== ENCOUNTER → 2023-01-18 12:16 | Outpatient (BNVA) | payer MEDICARE, SELFPAY | PROVIDERS: PCP Family Medicine; Visit Provider Internal Medicine | DX: G47.30 Sleep apnea, unspecified (principal); I25.10 Atherosclerotic heart disease of native coronary artery without angina pectoris; I10 Essential (primary) hypertension; E78.00 Pure hypercholesterolemia, unspecified; E11.9 Type 2 diabetes mellitus without complications; Z87.891 Personal history of nicotine dependence; Z79.84 Long term (current) use of oral hypoglycemic drugs | CPT/HCPCS: 99214 ==

== ENCOUNTER → 2023-01-22 07:36 | Outpatient (BNVA) | payer MEDICARE, SELFPAY | PROVIDERS: PCP Family Medicine; Visit Provider Podiatrist Foot & Ankle Surgery | DX: I73.9 Peripheral vascular disease, unspecified (principal); B35.1 Tinea unguium; E11.9 Type 2 diabetes mellitus without complications; Z89.421 Acquired absence of other right toe(s); Z79.84 Long term (current) use of oral hypoglycemic drugs | CPT/HCPCS: 11721 ==

== ENCOUNTER → 2023-04-29 12:32 | Outpatient (BNVA) | payer MEDICARE, SELFPAY | PROVIDERS: PCP Family Medicine; Visit Provider Podiatrist Foot & Ankle Surgery | DX: B35.1 Tinea unguium (principal); E11.9 Type 2 diabetes mellitus without complications; I73.9 Peripheral vascular disease, unspecified; Z89.421 Acquired absence of other right toe(s) | CPT/HCPCS: 11721 ==

== ENCOUNTER → 2023-07-01 12:24 | Outpatient (BNVA) | payer MEDICARE, SELFPAY | PROVIDERS: PCP Family Medicine; Visit Provider Podiatrist Foot & Ankle Surgery | DX: B35.1 Tinea unguium (principal); I73.9 Peripheral vascular disease, unspecified; Z89.421 Acquired absence of other right toe(s); E11.69 Type 2 diabetes mellitus with other specified complication; Z79.84 Long term (current) use of oral hypoglycemic drugs | CPT/HCPCS: 11721 ==

== ENCOUNTER → 2023-07-19 13:32 | Outpatient (BNVA) | payer MEDICARE, SELFPAY | PROVIDERS: PCP Family Medicine; Visit Provider Internal Medicine | DX: G47.30 Sleep apnea, unspecified (principal); I25.10 Atherosclerotic heart disease of native coronary artery without angina pectoris; I10 Essential (primary) hypertension; E78.00 Pure hypercholesterolemia, unspecified; E11.9 Type 2 diabetes mellitus without complications; Z87.891 Personal history of nicotine dependence; Z79.84 Long term (current) use of oral hypoglycemic drugs | CPT/HCPCS: 99214 ==

== ENCOUNTER → 2023-09-13 08:20 | Outpatient (BNVA) | payer MEDICARE, SELFPAY | PROVIDERS: PCP Registered Nurse; Visit Provider Podiatrist Foot & Ankle Surgery | DX: B35.1 Tinea unguium (principal); I73.9 Peripheral vascular disease, unspecified; Z89.421 Acquired absence of other right toe(s); E11.69 Type 2 diabetes mellitus with other specified complication; Z79.84 Long term (current) use of oral hypoglycemic drugs | CPT/HCPCS: 11721 ==

== ENCOUNTER → 2023-11-15 08:14 | Outpatient (BNVA) | payer MEDICARE, SELFPAY | PROVIDERS: PCP Registered Nurse; Visit Provider Podiatrist Foot & Ankle Surgery | DX: B35.1 Tinea unguium (principal); I73.9 Peripheral vascular disease, unspecified; Z89.421 Acquired absence of other right toe(s); B35.3 Tinea pedis; E11.69 Type 2 diabetes mellitus with other specified complication; Z79.84 Long term (current) use of oral hypoglycemic drugs | CPT/HCPCS: 11721; 99213 ==

== ENCOUNTER 2024-01-13 11:20 | Outpatient (CLI) | payer MEDICARE, SELFPAY ==
--- NOTE | 2024-01-13 11:28 | CTR_ITS ---
PROCEDURE INFORMATION: Exam: CT Abdomen And Pelvis Without And With Contrast Exam date and time: 01/13/2024 12:45 PM Age: 83 years old Clinical indication: Condition or disease; Kidney or ureter condition; Other: Mass; Primary cancer: Uterine; Prior surgery; Surgery date: 6+ months; Surgery type: Hysterectomy; Additional info: Left renal mass TECHNIQUE: Imaging protocol: Computed tomography of the abdomen and pelvis without and with contrast. 3D rendering (Not supervised by radiologist): MIP and/or 3D reconstructed images were created by the technologist. Radiation optimization: All CT scans at this facility use at least one of these dose optimization techniques: automated exposure control; mA and/or kV adjustment per patient size (includes targeted exams where dose is matched to clinical indication); or iterative reconstruction. Contrast material: OMNI 350; Contrast volume: 100 ml; Contrast route: INTRAVENOUS (IV); COMPARISON: CT kidney stone [id number] 08/12/2022 9:20 AM RADIATION DOSE METRICS: Total DLP (mGy-cm): 2688.02 FINDINGS: Liver: Right hepatic cyst. Gallbladder and biliary ducts: Cholecystectomy. Pancreas: Normal. No ductal dilation. Spleen: Normal. No splenomegaly. Adrenal glands: Normal. No mass. Kidneys and ureters: Bilateral nonobstructing renal calculi. Stable 14 mm exophytic cyst or mass containing a large calcification arising from the upper pole of the left kidney. There is a 2.1 x 1.8 cm area of diminished attenuation, also containing a central calcification, in the upper pole of the left kidney. This could represent a mass. The appearance is unchanged since 07/23/2022. Nonobstructing renal calculi on each side. Stomach and bowel: Unremarkable. No obstruction. No mucosal thickening. Appendix: No evidence of appendicitis. Intraperitoneal space: Unremarkable. No free air. No significant fluid collection. Vasculature: Unremarkable. No abdominal aortic aneurysm. Lymph nodes: Unremarkable. No enlarged lymph nodes. Urinary bladder: Unremarkable as visualized. Reproductive: Hysterectomy. Bones/joints: Unremarkable. No acute fracture. Soft tissues: Unremarkable. CT/CT abdomen pelvis wo/w [id number] IMPRESSION: 2. 2 masslike areas on the left are each unchanged since 08/12/2022 and therefore more likely benign.
[2024-01-13 12:57] LABS: Blood Urea Nitrogen 22 mg/dL (8-23)
[2024-01-13] MEDS: iohexol 350 mg/mL 500 mL Btl (per mL) IV (12:58)
== END 2024-01-13 11:21 | disposition home or self-care (01) ==
PROVIDERS: Radiology Diagnostic Radiology; PCP Registered Nurse; Visit Provider Urology
DX: N28.89 Other specified disorders of kidney and ureter (principal); Z98.890 Other specified postprocedural states; Z85.42 Personal history of malignant neoplasm of other parts of uterus; Z90.710 Acquired absence of both cervix and uterus; K76.89 Other specified diseases of liver
CPT/HCPCS: 74178; 82565; 84520

== ENCOUNTER → 2024-01-17 07:43 | Outpatient (BNVA) | payer MEDICARE, SELFPAY | PROVIDERS: PCP Registered Nurse; Visit Provider Podiatrist Foot & Ankle Surgery | DX: B35.1 Tinea unguium (principal); I73.9 Peripheral vascular disease, unspecified; Z89.421 Acquired absence of other right toe(s); M79.671 Pain in right foot; M79.672 Pain in left foot; E11.69 Type 2 diabetes mellitus with other specified complication; Z79.84 Long term (current) use of oral hypoglycemic drugs | CPT/HCPCS: 11721 ==

== ENCOUNTER → 2024-03-23 07:29 | Outpatient (BNVA) | payer MEDICARE, SELFPAY | PROVIDERS: PCP Registered Nurse; Visit Provider Podiatrist Foot & Ankle Surgery | DX: B35.1 Tinea unguium (principal); I73.9 Peripheral vascular disease, unspecified; Z89.421 Acquired absence of other right toe(s); E11.69 Type 2 diabetes mellitus with other specified complication; Z79.84 Long term (current) use of oral hypoglycemic drugs | CPT/HCPCS: 11721 ==

== ENCOUNTER 2024-04-08 09:44 | Inpatient (IN) | payer MEDICARE, SELFPAY ==
[2024-04-08] VITALS (35 sets, daily range): BP systolic 125–156; BP diastolic 64–93; PULSE 84–97; RESP 16–31; TEMP 36.1–36.5; O2SAT 71–100; BMI 34.8
--- OUTSIDE RECORDS SUMMARY | 2024-04-08 09:48 | XMS_ITS | Continuity of Care Document ---
Author Name Unknown Organization [facility] Address [address] [place] [phone] Phone Care Team Providers Care Home Connect Lpn Name Role Phone Unavailable Unavailable Unavailable Advance Directives Directive Yes / No Effective Date File Name No Information Encounters Encounter Description Practice Location Reason(s) For Visit Diagnoses Date Provider Providers Copied on Encounter [facility], [address] [place] [address], [place], [place], [id number] tel:[phone] [facility] No Information July-0 6-200 2 No Information Family History Family Member Type Diagnosis Age At Onset No Information Payers Payer name Insurance type Covered libertarian ID Authoriza tion(s) No Information Social History Type Description Quantity Date Captured Comments Sex Female Smoking Status No Information Chief Complaint And Reason For Visit No Information Reason For Referral Reason For Referral No Information History Of Present Illness Encounter Date Complaint History Of Prese nt Illness No Information Functional Status Date Functional Assessmen t No Information Instructions Date Instruction Additional Infor mation No Information Assessments Type Assessment Date No Information Patient Care Teams Name Effective Dates (start - stop) Status Members No Information
--- NOTE | 2024-04-08 12:07 | USCV_ITS ---
Analia Gotti Age: 83 Gender: F : 1940 Exam Date: 04/08/2024 14:27 Ordering Phys: Mariia Gage MD Technologist: Deuce Harper Exam Location: [facility] [place] Indication: chest pain BP: 137 / 74 HR: 88 Rhythm: Sinus Technical Quality: Adequate MEASUREMENTS (Male / Female) Normal Values 2D ECHO LV Diastolic Diameter PLAX 4.4 cm 4.2 - 5.9 / 3.9 - 5.3 cm IVS Diastolic Thickness 1.5 cm 0.6 - 1.0 / 0.6 - 0.9 cm IVS Systolic Thickness 1.7 cm LVPW Diastolic Thickness 1.7 cm 0.6 - 1.0 / 0.6 - 0.9 cm LVPW Systolic Thickness 2.1 cm LVOT Diameter 2.0 cm LV Ejection Fraction 2D Teich 44.4 % LV Ejection Fraction MOD 4C 40.9 % LV Ejection Fraction MOD 2C 26.6 % LV Ejection Fraction 2C AL 25.1 % LA Diameter 4.5 cm RA Systolic Volume 4C AL 41.1 ml RA Systolic Volume 4C MOD 41.9 ml LA Sys Volume AL 60.1 cm cubed LA Sys Volume Index AL 29.0 cm cubed/m squared Aorta at Sinotubular Diameter 2.6 cm IVC Diameter 1.8 cm M-MODE LA Ao Ratio MM 1.6 AV Cusp Separation MM 1.2 cm DOPPLER AV Peak Velocity 131.0 cm/s LVOT Peak Velocity 77.0 cm/s AV Area Cont Eq vti 2.3 cm squared AV Area Cont Eq pk 1.9 cm squared MV Peak Velocity 129.0 cm/s MV Area PHT 16.3 cm squared Mitral E to A Ratio 1.0 TV Peak Velocity 323.3 cm/s TR Peak Velocity 338.0 cm/s TR Peak Gradient 45.7 mmHg TR Mean Velocity 261.0 cm/s TR Mean Gradient 28.1 mmHg TR Velocity Time Integral 103.2 cm PV Peak Velocity 80.0 cm/s RV Ejection Time 0.2 s FINDINGS Left Ventricle Moderately increased left ventricular cavity size. Severely decreased left ventricular systolic function. Left ventricular ejection fraction is estimated at 40 %. Moderately decreased left ventricular systolic function. Grade I/IV diastolic dysfunction (abnormal relaxation filling pattern), normal to mildly elevated filling pressures. Right Ventricle The right ventricle is normal in size and function. Right Atrium The right atrium is normal in size. Left Atrium Moderately increased left atrial size. Mitral Valve Moderately thickened mitral valve. No mitral valve stenosis. Moderate mitral valve regurgitation. Aortic Valve Structurally normal aortic valve without significant sclerosis or stenosis. There is no aortic regurgitation. Tricuspid Valve Structurally normal tricuspid valve without significant stenosis or regurgitation. Pulmonary artery systolic pressure is normal. Pulmonic Valve Structurally normal pulmonic valve without significant stenosis. There is no pulmonic regurgitation. Pericardium Normal pericardium without effusion. Aorta Normal ascending aorta dimension. IVC The inferior vena cava appears normal. CONCLUSIONS Moderately increased left ventricular cavity size. Severely decreased left ventricular systolic function. Left ventricular ejection fraction is estimated at 40 %. Moderately decreased left ventricular systolic function. Grade I/IV diastolic dysfunction (abnormal relaxation filling pattern), normal to mildly elevated filling pressures. Moderately increased left atrial size. Moderately thickened mitral valve. No mitral valve stenosis. Moderate mitral valve regurgitation. There is no pericardial effusion. Right atrial pressure is around 5 mm of mercury. Elias Chi MD (Electronically Signed) Final Date: 08 April 2024 16:40 S
--- NOTE | 2024-04-08 12:09 | XRR_ITS ---
PROCEDURE INFORMATION: Exam: XR Chest Exam date and time: 04/08/2024 1:23 PM Age: 83 years old Clinical indication: Chest pressure; Patient HX: Chest pain; Baseline TECHNIQUE: Imaging protocol: Radiologic exam of the chest. Views: 1 view. COMPARISON: CR XR chest 1V portable [id number] 05/11/2022 9:32 AM FINDINGS: Lungs: Interval development of mild interstitial pulmonary edema with superimposed atelectasis versus pneumonia in the left lingula and left lower lobe. Pleural spaces: Interval development of small right and moderate left pleural effusions. No pneumothorax. Heart/Mediastinum: Stable moderate enlargement of the cardiac silhouette. Mediastinal contours are unremarkable. Vasculature: Stable vascular calcifications in the aorta. Bones/joints: Unremarkable for age. XR/XR chest 1V portable [id number] IMPRESSION: 1. Interval development of mild interstitial pulmonary edema with superimposed atelectasis versus pneumonia in the left lingula and left lower lobe. Recommend followup chest imaging to insure resolution of these findings. 2. Interval development of small right and moderate left pleural effusions. 3. Incidental/nonacute findings are listed in the report.
--- NOTE | 2024-04-08 12:09 | P.HP_ITS ---
Providers/Chief Complaint 2 Admitting Physician: Mariia Gage MD Primary Care Provider: ZENIA Morales History of Present Illness Analia Gotti is a 83 year old female with past medical history of CAD status post PCI, diabetes, hypertension, hyperlipidemia, obstructive sleep apnea, stable angina presented to the hospital today after being sent over by [facility] for workup for NSTEMI. Patient follows with Dr. Benavides for cardiology and last saw him in June 2023. She complained of occasional chest discomfort at that visit. She stated 3 in the morning today she felt very short of breath and had to go to the hospital. She went to [facility]. Did not once complain of any chest pain. Her main complaint was shortness of breath. She has not been sick lately denies a fever cough nausea vomiting diarrhea abdominal pain. She does have chest pain on left side of her chest which is reproducible to palpation. She states her main issue is shortness of breath. She would like to be a full code. She is not on any Lasix at home. Does not have an existing diagnosis of heart failure. She states she was at the primary care's office recently and was given antibiotics for her newly diagnosed UTI. She is unsure which antibiotic she takes at this time. Lives at home with her . At the outside facility D-dimer 2.2, BNP 7500, troponin 35, 42 with delta of 11 at 2 hours. Urinalysis abnormal suggestive of UTI. Rest of records are in chart. Creatinine 1.4 today Delta troponin 2 hours 0.98. Chest x-ray shows bilateral pleural effusions with possible pneumonia versus atelectasis in left lingular and left lower lobe. Patient has oxygen at home but only 2 L at nighttime. Medications/Allergies Home Medications Medication Instructions Recorded Confirmed Last Taken Type allopurinol 300 mg tablet 300 mg PO DAILY 11/16/19 04/08/24 05/10/22 History aspirin 81 mg chewable tablet 81 mg PO DAILY 11/16/19 04/08/24 05/11/22 History calcium carbonate (Calcium 500) 500 mg PO DAILY 11/16/19 04/08/24 11/16/19 History cholecalciferol (vitamin D3) 25 25 mcg PO DAILY 11/16/19 04/08/24 11/16/19 History mcg (1,000 unit) capsule (Vitamin D3) clopidogrel 75 mg tablet 75 mg PO DAILY 11/16/19 04/08/24 04/08/24 History glipizide 10 mg tablet, extended 10 mg PO BID 11/16/19 04/08/24 05/11/22 History release 24 hr metformin 500 mg tablet,extended 1,000 mg PO BID 11/16/19 04/08/24 05/11/22 History release 24 hr multivitamin 1 tab PO DAILY 11/16/19 04/08/24 05/11/22 History oxybutynin chloride 5 mg tablet 5 mg PO TID 11/16/19 04/08/24 05/10/22 History simvastatin 10 mg tablet 10 mg PO DAILY 11/16/19 04/08/24 05/10/22 History hydrocodone 10 mg-acetaminophen 1 tab PO Q6H PRN Pain 12/28/19 04/08/24 Unknown History 325 mg tablet lisinopril 20 mg tablet 20 mg PO DAILY #90 tabs 01/09/20 04/08/24 05/10/22 Rx naproxen 375 mg tablet 375 mg PO BID PRN Pain 06/13/21 03/23/24 Unknown History vitamin B complex 1 tab PO DAILY 05/11/22 04/08/24 05/10/22 History carvedilol 3.125 mg tablet 3.125 mg PO BID 06/19/22 04/08/24 Unknown History gabapentin 100 mg capsule 100 mg PO DAILY 01/18/23 04/08/24 Unknown History ketoconazole 2 % topical cream 1 applic topical BID #15 grams 11/15/23 03/23/24 Unknown Rx allopurinol 300 mg tablet mg 04/08/24 Unknown History Allergies Allergy/AdvReac Type Severity Reaction Status Date / Time metformin Allergy ADR/ALGY-Pa Verified 03/23/24 07:32 leness Sulfa (Sulfonamide Allergy ALGY-Hives Verified 03/23/24 07:32 Antibiotics) PFSH Acute 2 PFSH: Medical History Sleep apnea Coronary artery disease Hypertension Hypercholesterolemia Diabetes Surgical History History of PTCA History of tonsillectomy H/O: hysterectomy Hx of cholecystectomy Family History Father Hypertension Social History Smoking and tobacco/nicotine status: unknown if used tobacco/nicotine Alcohol intake: never Vitals/I&O/Wt Last Vital Signs O2 Del Method Nasal Cannula 04/08/24 12:00 Weight last 48 hrs Weight 92 kg Physical Exam 2 Narrative: General: Alert oriented x3, patient seen laying in bed appearing comfortable at this time denies any chest pain. On 4 L nasal cannula. HEENT: Normocephalic, atraumatic, EOMI, breathing nasal cannula Cardio: Regular rate rhythm, normal S1-S2, Respiratory: Crackles bilateral bases. GI: Abdomen soft, nontender, nondistended, bowel sounds + Extremities: No edema bilateral lower extremities. Data 04/08/24 12:20 04/08/24 12:20 A&P Assessment and plan (1) Hypertension: (2) Coronary artery disease: (3) PAD (peripheral artery disease): (4) Hypercholesterolemia: (5) Diabetes: (6) Sleep apnea: Plan # New onset congestive heart failure, systolic versus diastolic #History of stable angina #CAD status post PCI #Hypertension #Diabetes mellitus, [id number] #Urinary incontinence, chronically takes oxybutynin #UTI # ARELI on CKD most likely cardiorenal syndrome secondary to heart failure ? Will check Trope series with EKGs ? Check echocardiogram ? Continue aspirin Plavix ? Start atorvastatin 80 ? Check hemoglobin A1c, lipid panel, TSH ? Continue oxybutynin ? Did have a history of CKD. Creatinine 1.4 today. Baseline 1.0. ? Home med rec to be completed by nursing staff. ? Continue carvedilol ? Hold glipizide ? Hold metformin ? Hold naproxen ? Sliding scale insulin moderate dose intensity ? Started on Lasix 40 IV twice daily ? Start Levaquin 750 daily to cover for UTI and possible pneumonia ? Check sputum culture Gram stain ? Check CT chest without contrast ? Cardiology consulted for new onset heart failure. Patient may require ischemic workup. ? Check urine culture -Check BMP daily DVT prophylaxis: Heparin SQ twice daily Attestations 2 Medical Necessity Statement*: Greater than 2 midnight stay for workup of chest pain unstable angina. Diagnoses Hypertension I10 Coronary artery disease I25.10 PAD (peripheral artery disease) I73.9 Hypercholesterolemia E78.00 Diabetes E11.9 Sleep apnea G47.30
[2024-04-08 12:32] LABS: Basophils % 0.4 %; Eosinophils % 0.3 %; Hematocrit 31.7 % (36-47); Lymphocytes # 0.5 10^3/uL (0.8-4.8); Lymphocytes % 5.6 %; Mean Corpuscular HGB Conc 32.2 g/dL (30-55); Mean Corpuscular Volume 105.7 fl (85-98); Monocytes # 0.5 10^3/uL (0.2-0.9); Monocytes % 4.8 %; Neutrophils # 8.41 10^3/uL (1.8-7.7); Neutrophils % 88.5 %; Nucleated Red Blood Cells % 0 %; Platelet Count 249 10^3/cmm (157-399); Red Cell Distribution Width 14.6 % (12.1-15.1); White Blood Count 9.51 10^3/uL (3.29-11.43)
[2024-04-08 12:53] LABS: Estmated Average Glucose 143; Hemoglobin A1C 6.6 % (4.0-6.0)
[2024-04-08 12:59] LABS: Troponin(5th) Baseline 48 ng/L (0-10)
[2024-04-08 13:09] LABS: Procalcitonin 0.23 ng/mL (0-0.5); Thyroid Stimulating Hormone 1.49 uIU/mL (0.27-4.20)
[2024-04-08] MEDS: heparin 5,000 unit/mL INJ 1 mL 5000 UNIT SUBCUT ×2 (13:14→23:17)
[2024-04-08 13:20] LABS: Alanine Aminotransferase 19 U/L (0-33); Albumin Level 3.2 g/dL (3.5-5.2); Alkaline Phosphatase 72 U/L (35-105); Aspartate Amino Transferase 25 U/L (0-32); Blood Urea Nitrogen 32 mg/dL (8-23); Calcium 8.4 mg/dL (8.5-10.5); Carbon Dioxide 25 mmol/L (22-29); Chloride 106 mmol/L (98-107); Chol HDL Ratio 2.88 mg/dL (0.0-4.40); Cholesterol 92 mg/dL (0-200); Creatinine Clr Calc Pharmacy 34.0503; Globulin 2.6 g/dL (1.3-4.6); Glucose 186 mg/dL (65-115); HDL Cholesterol 32 mg/dL (60-100); LDL Cholesterol Calculated 34 mg/dL (50-129); Osmolality Calculated 300 mOsm/kg (285-295); Sodium 139 mmol/L (136-145); Total Bilirubin 0.2 mg/dL (0.15-1.2); Total Protein 5.8 g/dL (6.6-8.7); Triglycerides 129 mg/dL (0-150); VLDL Cholestrol Calculation 26 mg/dL (0-30)
--- NOTE | 2024-04-08 13:32 | ECG_ITS ---
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: : 1940 Requested By: Mariia Gage Order Number: [id number] Reading MD: TANIA PARKINSON Measurements Intervals [place] Rate: 90 P: 3 [place]: 155 QRS: -63 QRSD: 162 T: -30 QT: 407 QTc: 500 Interpretive Statements SINUS RHYTHM WITH OCCASIONAL SUPRAVENTRICULAR PREMATURE COMPLEXES LEFT AXIS DEVIATION [QRS AXIS < -30] RIGHT BUNDLE BRANCH BLOCK [120+ ms QRS DURATION, UPRIGHT V1, 40+ ms S IN I/aVL/V4/V5/V6] MODERATE T-WAVE ABNORMALITY, CONSIDER LATERAL ISCHEMIA [-0.1+ mV T-WAVE IN I/aVL/V5/V6] Compared to ECG 05/11/2022 09:20:37 Left-axis deviation now present T-wave abnormality now present Possible ischemia now present Electronically Signed On 04-10-2024 23:15:39 COLLAR PADDER BLINDSTITCH by TANIA PARKINSON [id number]
[2024-04-08 14:15] LABS: Troponin 5 2HR 48.98 ng/L (0-10); Troponin 5 2HR Delta 0.98 ABS# (0-10)
--- NOTE | 2024-04-08 14:15 | CTR_ITS ---
PROCEDURE INFORMATION: Exam: CT Chest Without Contrast; Diagnostic Exam date and time: 04/08/2024 3:27 PM Age: 83 years old Clinical indication: Shortness of breath; Prior surgery; Surgery date: 6+ months; Surgery type: Gb; Additional info: SOB, pleural effusions TECHNIQUE: Imaging protocol: Diagnostic computed tomography of the chest without contrast. Sagittal and coronal reformatted images were also reviewed. Radiation optimization: All CT scans at this facility use at least one of these dose optimization techniques: automated exposure control; mA and/or kV adjustment per patient size (includes targeted exams where dose is matched to clinical indication); or iterative reconstruction. COMPARISON: 1. CT angio chest PE protcl [id number] 01/19/2021 11:[address] kidney stone [id number] 08/12/2022 9:20 AM 3. CR (CHEST, ) 04/08/2024 1:23 PM RADIATION DOSE METRICS: Total DLP (mGy-cm): 535.81 FINDINGS: Limitations: Evaluation of the mediastinum and vasculature is limited without intravenous contrast. Trachea: Tracheobronchial structures are patent. Lungs: Interval development of mild interstitial pulmonary edema. Compressive atelectasis in the right and left lower lobes and left lingula. No pulmonary parenchymal nodules or masses. Pleural spaces: Large bilateral pleural effusions. No pneumothorax. Heart: Stable moderate enlargement of the heart. Stable calcification of the mitral valve annulus. Coronary arteries: Stable extensive atherosclerotic calcification in the coronary arteries. Esophagus: The esophagus is unremarkable. Mediastinal space: No mediastinal hematoma. No pneumomediastinum. Lymph nodes: No lymphadenopathy. Vasculature: Stable moderate to severe atherosclerotic changes, particularly in the visualized upper abdomen. 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 No evidence for aortic aneurysm. Pulmonary arteries are unremarkable. Pulmonary veins are unremarkable. Liver: Stable 1.4 cm cyst in the right hepatic lobe. Gallbladder and biliary ducts: Stable findings consistent with a previous cholecystectomy. No biliary ductal dilatation. Pancreas: Stable mild atrophy of the visualized pancreatic parenchyma. No dilatation of the visualized pancreatic duct. Spleen: The spleen is unremarkable. Adrenal glands: The right and left adrenal glands are unremarkable. Kidneys: Stable mild atrophy of the visualized left kidney. Previously demonstrated cyst in the left kidney has involuted. Mildly complex cysts with foci of calcification in the visualized left kidney are stable compared with 08/12/2022. These now measures 1.7 cm and 1.5 cm, respectively (series 4, images 59 and 62). Findings are consistent with Bosniak type 2 cyst. Bones/joints: Degenerative changes in the spine and shoulders. Soft tissues: Interval development of mild body wall edema. CT/CT chest wo con [id number] IMPRESSION: 1. Interval development of mild interstitial pulmonary edema with large bilateral pleural effusions and compressive atelectasis in the right and left lower lobes and left lingula. 2. Stable moderate to severe atherosclerotic changes, particularly in the visualized upper abdomen. 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 3. Interval development of mild body wall edema. 4. Incidental/nonacute findings are listed in the report. COMMENTS: Consistent with the [employer]'s Incidental Findings Committee white paper (J Am Johnny Radiol 2018): Any incidental renal lesion less than 1 cm or classified as too small to characterize, or any incidental cystic renal lesion characterized as simple-appearing, is likely benign. No follow-up imaging is recommended for these lesions per consensus recommendations based on imaging criteria.
[2024-04-08] MEDS: FUROsemide 10 mg/mL SDV 4mL 40 MG IVP (14:46)
[2024-04-08] MEDS: levofloxacin-dextrose 5 % 750 MG/150 ML PREMIX 100 MG IV (14:47)
--- NOTE | 2024-04-08 14:54 | ECG_ITS ---
[facility] Test Date: 2024-04-08 Pat Name: Analia Gotti Department: Room: ICU07 Gender: Female Glass Carrier: : 1940 Requested By: Mariia Gage Order Number: [id number] Reading MD: TANIA PARKINSON Measurements Intervals [place] Rate: 91 P: 5 [place]: 160 QRS: -65 QRSD: 162 T: -28 QT: 407 QTc: 502 Interpretive Statements SINUS RHYTHM WITH FREQUENT SUPRAVENTRICULAR PREMATURE COMPLEXES LEFT AXIS DEVIATION [QRS AXIS < -30] RIGHT BUNDLE BRANCH BLOCK [120+ ms QRS DURATION, UPRIGHT V1, 40+ ms S IN I/aVL/V4/V5/V6] Compared to ECG 04/08/2024 13:32:34 T-wave abnormality no longer present Possible ischemia no longer present Electronically Signed On 04-10-2024 23:21:56 DISTRIBUTING CLERK by TANIA PARKINSON [id number]
[2024-04-08 16:39] LABS: Adenovirus Not Detected (NOT DETECT); Chlamydia Pneumoniae Not Detected (NOT DETECT); Coronavirus 229E,HKU1,NL63,OC4 Not Detected (NOT DETECT); Human Metapneumovirus Not Detected (NOT DETECT); Human Rhinovirus/Enterovirus Not Detected (NOT DETECT); Influenza A Not Detected (NOT DETECT); Influenza A H1 Not Detected (NOT DETECT); Influenza A H1-2009 Not Detected (NOT DETECT); Influenza A H3 Not Detected (NOT DETECT); Influenza B Not Detected (NOT DETECT); Mycoplasma Pneumoniae Not Detected (NOT DETECT); Parainfluenza Virus Type 1 Not Detected (NOT DETECT); Parainfluenza Virus Type 2 Not Detected (NOT DETECT); Parainfluenza Virus Type 3 Not Detected (NOT DETECT); Parainfluenza Virus Type 4 Not Detected (NOT DETECT); Respiratory Syncytial Virus A Not Detected (NOT DETECT); Respiratory Syncytial Virus B Not Detected (NOT DETECT); SARS-COV-2 Not Detected (NOT DETECT)
[2024-04-08 17:31] LABS: Glucose Point of Care 175 mg/dL (70-110)
--- NOTE | 2024-04-08 18:08 | ECG_ITS ---
[facility] Test Date: 2024-04-08 Pat Name: Analia Gotti Department: Room: ICU07 Gender: Female Web Offset Press Feeder: : 1940 Requested By: Mariia Gage Order Number: [id number] Reading MD: TANIA PARKINSON Measurements Intervals [place] Rate: 86 P: 1 GA: 157 QRS: -66 QRSD: 157 T: -40 QT: 426 QTc: 510 Interpretive Statements SINUS RHYTHM WITH OCCASIONAL SUPRAVENTRICULAR PREMATURE COMPLEXES POSSIBLE LEFT ATRIAL ENLARGEMENT [-0.1mV P-WAVE IN V1/V2] LEFT AXIS DEVIATION [QRS AXIS < -30] RIGHT BUNDLE BRANCH BLOCK [120+ ms QRS DURATION, UPRIGHT V1, 40+ ms S IN I/aVL/V4/V5/V6] Compared to ECG 04/08/2024 14:54:33 No significant changes Electronically Signed On 04-10-2024 23:21:25 APPRENTICE/LINEMAN by TANIA PARKINSON [id number]
[2024-04-08] MEDS: insulin lispro 100 unit/1 mL SUBCUT (18:12)
[2024-04-08] MEDS: morphine 4 mg/mL SDV 1 mL 2 MG IVP (20:29)
[2024-04-08] MEDS: atorvastatin 40 mg Tablet 80 MG PO (20:29)
[2024-04-08 20:51] LABS: Glucose Point of Care 128 mg/dL (70-110)
--- NOTE | 2024-04-08 21:34 | P.CONIM_ITS ---
Providers/Reason For Consult 2 Consulting Physician/Specialty*: Elias Chi MD Reason for Consult*: Shortness of breath Attending Physician: Mariia Gage MD Primary Care Provider: ZENIA Morales History of Present Illness History of Present Illness Analia Gotti is a 83 year old female past medical history significant of coronary disease congestive heart failure diabetes hypertension hyperlipidemia peripheral arterial disease presented with shortness of breath PND orthopnea. She categorically denies any chest pain. She was transferred from outside hospital. Twelve-lead EKG is not suggestive of ischemia. It appeared to me patient is volume overloaded and required IV diuresis. Medications/Allergies Home Medications Medication Instructions Recorded Confirmed Last Taken Type allopurinol 300 mg tablet 300 mg PO DAILY 11/16/19 04/08/24 05/10/22 History aspirin 81 mg chewable tablet 81 mg PO DAILY 11/16/19 04/08/24 05/11/22 History calcium carbonate (Calcium 500) 500 mg PO DAILY 11/16/19 04/08/24 11/16/19 History cholecalciferol (vitamin D3) 25 25 mcg PO DAILY 11/16/19 04/08/24 11/16/19 History mcg (1,000 unit) capsule (Vitamin D3) clopidogrel 75 mg tablet 75 mg PO DAILY 11/16/19 04/08/24 04/08/24 History glipizide 10 mg tablet, extended 10 mg PO BID 11/16/19 04/08/24 05/11/22 History release 24 hr metformin 500 mg tablet,extended 1,000 mg PO BID 11/16/19 04/08/24 05/11/22 History release 24 hr multivitamin 1 tab PO DAILY 11/16/19 04/08/24 05/11/22 History oxybutynin chloride 5 mg tablet 5 mg PO TID 11/16/19 04/08/24 05/10/22 History simvastatin 10 mg tablet 10 mg PO DAILY 11/16/19 04/08/24 05/10/22 History hydrocodone 10 mg-acetaminophen 1 tab PO Q6H PRN Pain 12/28/19 04/08/24 Unknown History 325 mg tablet lisinopril 20 mg tablet 20 mg PO DAILY #90 tabs 01/09/20 04/08/24 05/10/22 Rx naproxen 375 mg tablet 375 mg PO BID PRN Pain 06/13/21 04/08/24 Unknown History vitamin B complex 1 tab PO DAILY 05/11/22 04/08/24 05/10/22 History carvedilol 3.125 mg tablet 3.125 mg PO BID 06/19/22 04/08/24 Unknown History gabapentin 100 mg capsule 100 mg PO DAILY 01/18/23 04/08/24 Unknown History ketoconazole 2 % topical cream 1 applic topical BID #15 grams 11/15/23 04/08/24 Unknown Rx Allergies Allergy/AdvReac Type Severity Reaction Status Date / Time metformin Allergy ADR/ALGY-Pa Verified 03/23/24 07:32 leness Sulfa (Sulfonamide Allergy ALGY-Hives Verified 03/23/24 07:32 Antibiotics) Current Medications Generic Name Dose Route Start Last Admin Trade Name Freq PRN Reason Stop Dose Admin Atorvastatin Calcium 80 mg 04/08/24 21:00 04/08/24 20:29 Atorvastatin 40 Mg Tablet PO 80 mg BEDTIME MARIAN Administration Furosemide 40 mg 04/08/24 14:45 04/08/24 14:46 Furosemide 10 Mg/Ml Sdv 4ml IVP 40 mg Q12H MARIAN Administration Heparin Sodium (Porcine) 5,000 unit 04/08/24 12:15 04/08/24 13:14 Heparin 5,000 Unit/Ml Inj 1 Ml SUBCUT 5,000 unit Q12H MARIAN Administration Sodium Chloride 1,000 mls @ 75 mls/hr 04/08/24 12:15 04/08/24 13:41 Sodium Chloride 0.9% IV Not Given .[id number] MARIAN Levofloxacin/Dextrose 750 mg in 150 mls @ 100 mls/hr 04/08/24 14:30 04/08/24 16:17 Levaquin-D5w IV Infused Q24H MARIAN Infusion Protocol Insulin Human Lispro 0 unit 04/08/24 18:00 04/08/24 20:49 Insulin Lispro 100 Unit/1 Ml SUBCUT Not Given WM&BEDTIME MARIAN Protocol PFSH Acute 2 PFSH: Medical History (Updated 04/08/24 @ 21:47 by Elias Chi MD) CHF (NYHA class III, ACC/AHA stage C) Sleep apnea Coronary artery disease Hypertension Hypercholesterolemia Diabetes Surgical History History of PTCA History of tonsillectomy H/O: hysterectomy Hx of cholecystectomy Family History Father Hypertension Social History Smoking and tobacco/nicotine status: unknown if used tobacco/nicotine Alcohol intake: never Dietary Habits: Current diet type/program: diabetic Caffeine: Yes Vitals/I&O/Wt Last Vital Signs Temp 96.9 F L 04/08/24 12:00 Pulse 93 04/08/24 16:00 Resp 18 04/08/24 20:29 BP 126/77 04/08/24 16:00 Pulse Ox 96 04/08/24 16:00 O2 Del Method Nasal Cannula 04/08/24 13:36 O2 Flow Rate 4 04/08/24 13:36 04/08/24 04/08/24 04/08/24 06:59 14:59 22:59 Intake Total 350 / 350 150 / 500 Output Total 1500 / 1500 Balance 350 / 350 -1350 / -1000 Weight last 48 hrs Weight 202 lb 13.204 oz Physical Exam 2 Const: OTHER: GENERAL: Patient is alert, awake and oriented x3. HEART: Regular S1 and S2. No murmur, rub or gallop. LUNGS: Decreased breath sound with inspiratory crackles bilaterally. CENTRAL NERVOUS SYSTEM: Grossly nonfocal. EXTREMITIES: Lower extremities with out edema bilaterally. Data 04/08/24 12:20 04/08/24 12:20 Micro: Microbiology 04/08/24 18:38 Blood Culture - Preliminary Blood SPECIMEN COLLECTED 04/08/24 18:38 Blood Culture - Preliminary Blood SPECIMEN COLLECTED A&P Assessment and plan (1) CHF (NYHA class III, ACC/AHA stage C): (2) Hypertension: (3) Coronary artery disease: (4) Hypercholesterolemia: Plan Patient appeared to be in decompensated systolic heart failure she denies any chest pain rule out for acute coronary syndrome Agree with IV diuresis, goal is to 1 to 1.5 L negative per day Keep electrolyte imbalance Continue rest of medications Consult Attestations 2 Medical Necessity Statement: Require continuation hospitalization for above defined care I am expecting her stay to cross more than 2 midnights Coding Level of Care Code Acute Code for Chg Fwd Diagnoses CHF (NYHA class III, ACC/AHA stage C) I50.9 Hypertension I10 Coronary artery disease I25.10 Hypercholesterolemia E78.00
[2024-04-09] VITALS (44 sets, daily range): BP systolic 134–163; BP diastolic 62–102; PULSE 83–99; RESP 12–26; TEMP 36.4–36.7; O2SAT 93–100
[2024-04-09] MEDS: FUROsemide 10 mg/mL SDV 4mL 40 MG IVP ×2 (01:58→15:24)
[2024-04-09] MEDS: sodium chloride 0.9% 1,000 ML 75 ML IV ×2 (04:10→15:25)
[2024-04-09 05:12] LABS: Basophils % 0.5 %; Eosinophils # 0.1 10^3/uL (0.0-0.8); Eosinophils % 1.8 %; Hematocrit 31.4 % (36-47); Lymphocytes # 0.7 10^3/uL (0.8-4.8); Lymphocytes % 8.2 %; Mean Corpuscular HGB Conc 31.8 g/dL (30-55); Mean Corpuscular Hemoglobin 34.1 pg (27-33); Mean Corpuscular Volume 107.2 fl (85-98); Mean Platelet Volume 11.5 fL (7.4-10.4); Monocytes # 0.6 10^3/uL (0.2-0.9); Monocytes % 7.2 %; Neutrophils # 6.53 10^3/uL (1.8-7.7); Neutrophils % 81.8 %; Nucleated Red Blood Cells % 0 %; Platelet Count 227 10^3/cmm (157-399); Red Blood Count 2.93 10^6/uL (3.85-5.65); Red Cell Distribution Width 14.6 % (12.1-15.1); White Blood Count 7.97 10^3/uL (3.29-11.43)
[2024-04-09 05:43] LABS: Alanine Aminotransferase 15 U/L (0-33); Albumin Level 2.9 g/dL (3.5-5.2); Alkaline Phosphatase 64 U/L (35-105); Anion Gap 16.7 (5-19); Aspartate Amino Transferase 17 U/L (0-32); Blood Urea Nitrogen 29 mg/dL (8-23); Calcium 8.8 mg/dL (8.5-10.5); Carbon Dioxide 23 mmol/L (22-29); Chloride 102 mmol/L (98-107); Creatinine Clr Calc Pharmacy 34.0503; Globulin 2.8 g/dL (1.3-4.6); Glucose 155 mg/dL (65-115); Magnesium 1.6 mg/dL (1.7-2.3); Osmolality Calculated 293 mOsm/kg (285-295); Potassium 4.7 mmol/L (3.5-5.1); Sodium 137 mmol/L (136-145); Total Bilirubin 0.2 mg/dL (0.15-1.2); Total Protein 5.7 g/dL (6.6-8.7)
[2024-04-09 07:38] LABS: Glucose Point of Care 171 mg/dL (70-110)
[2024-04-09] MEDS: insulin lispro 100 unit/1 mL SUBCUT ×3 (08:05→20:44)
[2024-04-09] MEDS: aspirin 81 mg EC Tablet PO (08:06)
[2024-04-09] MEDS: clopidogrel 75 mg Tablet PO (08:06)
[2024-04-09] MEDS: pantoprazole DR 40 mg Tablet PO (08:06)
[2024-04-09 11:50] LABS: Glucose Point of Care 328 mg/dL (70-110)
[2024-04-09] MEDS: acetaminophen 325 mg Tablet 650 MG PO (11:52)
[2024-04-09] MEDS: heparin 5,000 unit/mL INJ 1 mL 5000 UNIT SUBCUT ×2 (11:52→23:15)
--- NOTE | 2024-04-09 16:06 | P.PN_ITS ---
Subjective 2 Subjective: Seen this morning. Patient states she is starting to feel better breathing is starting to ease up. 3000 urine output overnight. Discussed with her regarding a thoracentesis going forward and she is interested in trying. Vitals/I&O/Wt Last Vital Signs Temp 97.7 F 04/08/24 19:30 Pulse 92 04/09/24 14:00 Resp 21 H 04/09/24 14:00 BP 158/81 04/09/24 13:00 Pulse Ox 98 04/09/24 12:30 O2 Del Method Nasal Cannula 04/09/24 08:06 O2 Flow Rate 3 04/09/24 08:06 04/09/24 04/09/24 04/09/24 06:59 14:59 22:59 Intake Total 240 / 980 480 / 480 843.75 / 1323.75 Output Total 1700 / 3200 Balance -1460 / -2220 480 / 480 843.75 / 1323.75 Weight last 48 hrs Weight 98 kg Weight 92 kg Physical Exam 2 Narrative: General: Alert oriented x3, seen sitting up in recliner. On 4 L nasal cannula. HEENT: Normocephalic, atraumatic, EOMI, breathing nasal cannula Cardio: Regular rate rhythm, normal S1-S2, Respiratory: Crackles bilateral bases. GI: Abdomen soft, nontender, nondistended, bowel sounds + Extremities: No edema bilateral lower extremities. Data 04/09/24 04:40 04/09/24 04:40 Micro: Microbiology 04/08/24 14:45 Urine Culture - Preliminary Urine Catheterized 04/08/24 18:38 Blood Culture - Preliminary Blood SPECIMEN COLLECTED 04/08/24 18:38 Blood Culture - Preliminary Blood SPECIMEN COLLECTED A&P Assessment and plan (1) Hypertension: (2) Coronary artery disease: (3) PAD (peripheral artery disease): (4) Hypercholesterolemia: (5) Diabetes: (6) Sleep apnea: Plan # New onset congestive heart failure, systolic versus diastolic #History of stable angina #CAD status post PCI #Hypertension #Diabetes mellitus, [id number] #Urinary incontinence, chronically takes oxybutynin #UTI # ARELI on CKD most likely cardiorenal syndrome secondary to heart failure ? Will check Trope series with EKGs ? Check echocardiogram ? Continue aspirin Plavix ? Start atorvastatin 80 ? Check hemoglobin A1c, lipid panel, TSH ? Continue oxybutynin ? Did have a history of CKD. Creatinine 1.4 today. Baseline 1.0. ? Home med rec to be completed by nursing staff. ? Continue carvedilol ? Hold glipizide ? Hold metformin ? Hold naproxen ? Sliding scale insulin moderate dose intensity ? Started on Lasix 40 IV twice daily ? Start Levaquin 750 daily to cover for UTI and possible pneumonia ? Check sputum culture Gram stain ? Check CT chest without contrast ? Cardiology consulted for new onset heart failure. Patient may require ischemic workup. ? Check urine culture -Check BMP daily DVT prophylaxis: Heparin SQ twice daily 04/09/2024 Echo shows Moderately increased left ventricular cavity size. Severely decreased left ventricular systolic function. Left ventricular ejection fraction is estimated at 40 %. Moderately decreased left ventricular systolic function. Grade I/IV diastolic dysfunction (abnormal relaxation filling pattern), normal to mildly elevated filling pressures. Continue diuresis with Lasix IV 40 twice daily ? Recheck chest x-ray in AM. If continues to have significant pleural effusions patient agreeable to thoracentesis. ? Will hold aspirin tonight. Reassess for thoracentesis in AM. ? Patient had decompensated heart failure. Continue to diurese at this time. ? Cardiology following appreciate recommendations ? Continue Levaquin Attestations 2 Medical Necessity Statement*: Greater than 2 midnight stay for workup of chest pain unstable angina. Diagnoses Hypertension I10 Coronary artery disease I25.10 PAD (peripheral artery disease) I73.9 Hypercholesterolemia E78.00 Diabetes E11.9 Sleep apnea G47.30
[2024-04-09 17:28] LABS: Glucose Point of Care 116 mg/dL (70-110)
[2024-04-09 20:43] LABS: Glucose Point of Care 144 mg/dL (70-110)
[2024-04-09] MEDS: atorvastatin 40 mg Tablet 80 MG PO (20:43)
[2024-04-09] MEDS: gabapentin 100 mg Capsule PO (20:43)
--- NOTE | 2024-04-09 21:50 | P.PN_ITS ---
Subjective 2 Subjective: Feeling better diuresed well Vitals/I&O/Wt Last Vital Signs Temp 98.1 F 04/09/24 20:26 Pulse 91 04/09/24 20:00 Resp 19 H 04/09/24 20:00 BP 154/88 04/09/24 20:00 Pulse Ox 96 04/09/24 20:00 O2 Del Method Nasal Cannula 04/09/24 20:00 O2 Flow Rate 2 04/09/24 20:00 04/09/24 04/09/24 04/09/24 06:59 14:59 22:59 Intake Total 240 / 980 480 / 480 1118.75 / 1598.75 Output Total 1700 / 3200 1400 / 1400 Balance -1460 / -2220 480 / 480 -281.25 / 198.75 Weight last 48 hrs Weight 216 lb 0.848 oz Weight 202 lb 13.204 oz Physical Exam 2 Const: OTHER: GENERAL: Patient is alert, awake and oriented x3. HEART: Regular S1 and S2. No murmur, rub or gallop. LUNGS: Decreased with mild inspiratory basal bilaterally. CENTRAL NERVOUS SYSTEM: Grossly nonfocal. EXTREMITIES: Lower extremities with out edema bilaterally. Data 04/09/24 04:40 04/09/24 04:40 Micro: Microbiology 04/08/24 18:38 Blood Culture - Preliminary Blood NEGATIVE TO DATE 04/08/24 18:38 Blood Culture - Preliminary Blood NEGATIVE TO DATE 04/08/24 14:45 Urine Culture - Preliminary Urine Catheterized A&P Assessment and plan (1) CHF (NYHA class III, ACC/AHA stage C): (2) Hypertension: (3) Coronary artery disease: (4) Hypercholesterolemia: Plan Patient appeared to be in decompensated systolic heart failure she denies any chest pain rule out for acute coronary syndrome Agree with IV diuresis, goal is to 1 to 1.5 L negative per day Keep electrolyte imbalance Continue rest of medications On today's visit dated 04/09 2024 patient continues to do well after diuresis continue current management. Once euvolemic will maximize guideline medical therapy for heart failure. Attestations 2 Medical Necessity Statement*: Require continuation hospitalization for above defined care Coding Level of Care Code Acute Code for [facility] Fwd Diagnoses CHF (NYHA class III, ACC/AHA stage C) I50.9 Hypertension I10 Coronary artery disease I25.10 Hypercholesterolemia E78.00
[2024-04-10] VITALS (15 sets, daily range): BP systolic 138–172; BP diastolic 69–93; PULSE 93–109; RESP 16–27; TEMP 36.6–37.1; O2SAT 94–99
[2024-04-10] MEDS: FUROsemide 10 mg/mL SDV 4mL 40 MG IVP ×2 (03:12→16:07)
--- NOTE | 2024-04-10 05:21 | P.PN_ITS ---
Subjective 2 Subjective: A fib with RVR this morning with HR 150s Medications: Reviewed: Yes Vitals/I&O/Wt Last Vital Signs Temp 98.1 F 04/10/24 04:04 Pulse 97 04/10/24 04:00 Resp 17 04/10/24 04:00 BP 172/90 04/10/24 04:00 Pulse Ox 98 04/10/24 04:00 O2 Del Method Nasal Cannula 04/10/24 04:00 O2 Flow Rate 2 04/10/24 04:00 04/09/24 04/09/24 04/10/24 14:59 22:59 06:59 Intake Total 480 / 480 843.75 / 1323.75 692.5 / 2016.25 Output Total 1400 / 1400 Balance 480 / 480 -556.25 / -76.25 692.5 / 616.25 Weight last 48 hrs Weight 98 kg Weight 92 kg Physical Exam 2 Narrative: General: No acute distress, AO x3 HEENT: PERRLA, pupils bilaterally equal and reactive, pallors not present Chest: Normal vesicular breath sounds, no added sounds, equal good air entry bilaterally CVS: S1-S2 regular, no murmurs, no tachycardia, no gallops, no rubs Abdomen: Soft, nontender, no organomegaly, bowel sounds present Neuro: No focal deficits, no facial deformity, AO x3, power 5/5 in all limbs Data 04/10/24 05:42 04/10/24 05:42 Micro: Microbiology 04/08/24 18:38 Blood Culture - Preliminary Blood NEGATIVE TO DATE 04/08/24 18:38 Blood Culture - Preliminary Blood NEGATIVE TO DATE 04/08/24 14:45 Urine Culture - Preliminary Urine Catheterized A&P Assessment and plan (1) Hypertension: (2) Coronary artery disease: (3) PAD (peripheral artery disease): (4) Hypercholesterolemia: (5) Diabetes: (6) Sleep apnea: (7) CHF (NYHA class III, ACC/AHA stage C): Plan # New onset congestive heart failure, systolic versus diastolic #History of stable angina #CAD status post PCI #Hypertension #Diabetes mellitus, [id number] #Urinary incontinence, chronically takes oxybutynin #UTI # ARELI on CKD most likely cardiorenal syndrome secondary to heart failure ? Will check Trope series with EKGs ? Check echocardiogram ? Continue aspirin Plavix ? Start atorvastatin 80 ? Check hemoglobin A1c, lipid panel, TSH ? Continue oxybutynin ? Did have a history of CKD. Creatinine 1.4 today. Baseline 1.0. ? Home med rec to be completed by nursing staff. ? Continue carvedilol ? Hold glipizide ? Hold metformin ? Hold naproxen ? Sliding scale insulin moderate dose intensity ? Started on Lasix 40 IV twice daily ? Start Levaquin 750 daily to cover for UTI and possible pneumonia ? Check sputum culture Gram stain ? Check CT chest without contrast ? Cardiology consulted for new onset heart failure. Patient may require ischemic workup. ? Check urine culture -Check BMP daily DVT prophylaxis: Heparin SQ twice daily 04/09/2024 Echo shows Moderately increased left ventricular cavity size. Severely decreased left ventricular systolic function. Left ventricular ejection fraction is estimated at 40 %. Moderately decreased left ventricular systolic function. Grade I/IV diastolic dysfunction (abnormal relaxation filling pattern), normal to mildly elevated filling pressures. Continue diuresis with Lasix IV 40 twice daily ? Recheck chest x-ray in AM. If continues to have significant pleural effusions patient agreeable to thoracentesis. ? Will hold aspirin tonight. Reassess for thoracentesis in AM. ? Patient had decompensated heart failure. Continue to diurese at this time. ? Cardiology following appreciate recommendations ? Continue Levaquin 04/10/23 : Chart reveiwed. Patient admitted on 04/08 as a transfer from OSH with concern for NSTEMI. Evaluation here shows trop 40s range with negative deltas, less concerning for ACS. Overall clinical impression that of acute on chronic CHF exacerbation. Echocardiogram as summarized above. CXR showing pleural effusions B/L. On diuresis since admission with lasix 40mg iv q12h. net negative 1.6L since admission. Pending decision regarding thoracentesis based on repeat X ray. Patient is currently on ASA and Plavix. Patient currently on Lasix 40mg iv q12h and also Normal saline @ 75 cc/hr. D/c IV fluids today. CR at 1.4 yesterday, morning labs pending. A fib with RVR this morning at 150s. BP ranging 130-170 systolic. Ordered for iv metroprolol , assess for response. Resume home dose of carvedilol 3.125mg BID. D/c Levofloxacin as urine cx negative, low suspicion for pneumonia with no consolidation on imaging, no fever or leukocytosis. Attestations 2 Medical Necessity Statement*: continued admission for A fib with rvr this morning Coding Level of Care Code Acute Code for [facility] Diagnoses Hypertension I10 Coronary artery disease I25.10 PAD (peripheral artery disease) I73.9 Hypercholesterolemia E78.00 Diabetes E11.9 Sleep apnea G47.30 CHF (NYHA class III, ACC/AHA stage C) I50.9
[2024-04-10] MEDS: metoprolol tartrate 1 mg/1 mL SDV 5 mL 2.5 MG IVP (05:32)
--- NOTE | 2024-04-10 05:59 | ECG_ITS ---
[facility] Test Date: 2024-04-10 Pat Name: Analia Gotti Department: Room: ICU07 Gender: Female [employer]: : 1940 Requested By: Elidia Butler Order Number: [id number] Reading MD: TANIA PARKINSON Measurements Intervals [place] Rate: 145 P: 0 IN: 0 QRS: -78 QRSD: 158 T: 23 QT: 359 QTc: 559 Interpretive Statements ATRIAL FLUTTER/TACHYCARDIA WITH RAPID VENTRICULAR RESPONSE LEFT AXIS DEVIATION [QRS AXIS < -30] RIGHT BUNDLE BRANCH BLOCK [120+ ms QRS DURATION, UPRIGHT V1, 40+ ms S IN I/aVL/V4/V5/V6] SEPTAL MYOCARDIAL INFARCTION , OF INDETERMINATE AGE [40+ ms Q WAVE IN V1/V2] Compared to ECG 04/08/2024 17:27:53 Myocardial infarct finding now present Sinus rhythm no longer present Electronically Signed On 04-10-2024 23:12:15 VP [employer] by TANIA PARKINSON [email or web address]
[2024-04-10 06:11] LABS: Basophils # 0.1 10^3/uL (0.0-0.1); Basophils % 0.7 %; Eosinophils # 0.3 10^3/uL (0.0-0.8); Eosinophils % 2.3 %; Hematocrit 30.3 % (36-47); Lymphocytes # 0.8 10^3/uL (0.8-4.8); Lymphocytes % 6.8 %; Mean Corpuscular HGB Conc 32.3 g/dL (30-55); Mean Corpuscular Hemoglobin 34.4 pg (27-33); Mean Corpuscular Volume 106.3 fl (85-98); Mean Platelet Volume 11.7 fL (7.4-10.4); Monocytes # 0.7 10^3/uL (0.2-0.9); Monocytes % 6.1 %; Neutrophils # 9.65 10^3/uL (1.8-7.7); Neutrophils % 83.8 %; Nucleated Red Blood Cells % 0 %; Platelet Count 266 10^3/cmm (157-399); Red Blood Count 2.85 10^6/uL (3.85-5.65); Red Cell Distribution Width 14.6 % (12.1-15.1); White Blood Count 11.51 10^3/uL (3.29-11.43)
[2024-04-10 06:30] LABS: Alanine Aminotransferase 15 U/L (0-33); Albumin Level 3.1 g/dL (3.5-5.2); Alkaline Phosphatase 72 U/L (35-105); Anion Gap 15.7 (5-19); Aspartate Amino Transferase 18 U/L (0-32); Blood Urea Nitrogen 27 mg/dL (8-23); Carbon Dioxide 24 mmol/L (22-29); Chloride 102 mmol/L (98-107); Creatinine Clr Calc Pharmacy 37.9336; Glucose 192 mg/dL (65-115); Magnesium 1.5 mg/dL (1.7-2.3); Osmolality Calculated 294 mOsm/kg (285-295); Potassium 4.7 mmol/L (3.5-5.1); Sodium 137 mmol/L (136-145); Total Bilirubin 0.3 mg/dL (0.15-1.2); Total Protein 6.1 g/dL (6.6-8.7)
--- NOTE | 2024-04-10 07:09 | PC.NURSE ---
A. Fib RVR: At 0510 pt went into A. Fib RVR with a heart rate ranging from 140 to 160. No chest pain. EKG obtained. Dr. Butler notified. New order for 2.5mg IVP Metoprolol ONCE NOW. See 'MAY' for administration. Pt converted to SR @0539. No chest pain. Vitals stable.
[2024-04-10] MEDS: carvedilol 3.125 mg Tablet PO ×2 (07:23→18:21)
[2024-04-10 07:48] LABS: Glucose Point of Care 182 mg/dL (70-110)
[2024-04-10] MEDS: insulin lispro 100 unit/1 mL SUBCUT ×4 (08:48→21:36)
[2024-04-10] MEDS: clopidogrel 75 mg Tablet PO (08:48)
[2024-04-10] MEDS: pantoprazole DR 40 mg Tablet PO (08:48)
[2024-04-10] MEDS: aspirin 81 mg EC Tablet PO (08:48)
--- NOTE | 2024-04-10 09:36 | PC.NURSE ---
Report given to Chester RN
--- NOTE | 2024-04-10 10:00 | PC.NURSE ---
Transferred to 112-1 via bed.
[2024-04-10 12:08] LABS: Glucose Point of Care 233 mg/dL (70-110)
[2024-04-10] MEDS: heparin 5,000 unit/mL INJ 1 mL 5000 UNIT SUBCUT (12:23)
--- NOTE | 2024-04-10 12:30 | PC.SOCIAL ---
IMM Update pg 2 of IMM updated and reviewed w/ patient. Copy provided and copy dated, initialed and placed in chart.
--- NOTE | 2024-04-10 14:53 | XRR_ITS ---
PROCEDURE INFORMATION: Exam: XR Chest Exam date and time: 04/10/2024 3:42 PM Age: 83 years old Clinical indication: Condition or disease; Lung condition and disease; Pleural effusion; Other: Not specified; Patient HX: History of uterine cancer; Additional info: Follow up effusion post diuresis TECHNIQUE: Imaging protocol: Radiologic exam of the chest. Views: 1 view. COMPARISON: [facility] [id number] 04/08/2024 3:27 PM FINDINGS: Lungs: No focal consolidation. Pleural spaces: No evidence of pneumothorax. Questionable small bilateral pleural effusions. Heart/Mediastinum: Cardiomediastinal silhouette is within normal limits. Bones/joints: No evidence of acute osseous abnormality. XR/XR chest 1V portable [id number] IMPRESSION: 1. Questionable small bilateral pleural effusions.
[2024-04-10 16:30] LABS: Glucose Point of Care 229 mg/dL (70-110)
[2024-04-10 20:53] LABS: Glucose Point of Care 152 mg/dL (70-110)
--- NOTE | 2024-04-10 21:09 | P.PN_ITS ---
Subjective 2 Subjective: Continues to improve and feel better Medications: Reviewed: Yes Vitals/I&O/Wt Last Vital Signs Temp 97.9 F 04/10/24 20:00 Pulse 98 04/10/24 20:00 Resp 21 H 04/10/24 20:00 BP 163/90 04/10/24 20:00 Pulse Ox 95 04/10/24 20:00 O2 Del Method Room Air 04/10/24 20:00 O2 Flow Rate 2 04/10/24 08:47 04/10/24 04/10/24 04/10/24 06:59 14:59 22:59 Intake Total 863.0 / 2186.75 490 / 490 240 / 730 Output Total 2500 / 3900 700 / 700 Balance -1637.0 / -1713.25 490 / 490 -460 / 30 Weight last 48 hrs Weight 192 lb 14.472 oz Weight 216 lb 0.848 oz Physical Exam 2 Const: OTHER: GENERAL: Patient is alert, awake and oriented x3. HEART: Regular S1 and S2. No murmur, rub or gallop. LUNGS: Reduced breath sounds bilaterally but no crackles CENTRAL NERVOUS SYSTEM: Grossly nonfocal. EXTREMITIES: Lower extremities with out edema bilaterally. Data 04/10/24 05:42 04/10/24 05:42 Micro: Microbiology 04/08/24 14:45 Urine Culture - Final Urine Catheterized 04/08/24 18:38 Blood Culture - Preliminary Blood NEGATIVE TO DATE 04/08/24 18:38 Blood Culture - Preliminary Blood NEGATIVE TO DATE A&P Assessment and plan (1) CHF (NYHA class III, ACC/AHA stage C): (2) Hypertension: (3) Coronary artery disease: (4) Hypercholesterolemia: Plan Continue p.o. diuretic Once stabilized renal function hicks consider Entresto Attestations 2 Medical Necessity Statement*: As per medicine Coding Level of Care Code Acute Code for [facility] Diagnoses CHF (NYHA class III, ACC/AHA stage C) I50.9 Hypertension I10 Coronary artery disease I25.10 Hypercholesterolemia E78.00
[2024-04-10] MEDS: gabapentin 100 mg Capsule PO (21:36)
[2024-04-10] MEDS: atorvastatin 40 mg Tablet 80 MG PO (21:36)
[2024-04-11] VITALS: BP 150/83; PULSE 90; RESP 21; TEMP 36.4; O2SAT 95
[2024-04-11] MEDS: heparin 5,000 unit/mL INJ 1 mL 5000 UNIT SUBCUT (01:08)
[2024-04-11 04:00] VITALS: BP 158/98; PULSE 101; RESP 23; TEMP 36.7; O2SAT 95
[2024-04-11 04:50] LABS: Basophils # 0.1 10^3/uL (0.0-0.1); Basophils % 0.6 %; Eosinophils # 0.2 10^3/uL (0.0-0.8); Eosinophils % 2.5 %; Lymphocytes # 0.8 10^3/uL (0.8-4.8); Lymphocytes % 9.8 %; Mean Corpuscular Hemoglobin 33.8 pg (27-33); Mean Corpuscular Volume 102.4 fl (85-98); Mean Platelet Volume 11.7 fL (7.4-10.4); Monocytes # 0.5 10^3/uL (0.2-0.9); Monocytes % 6.7 %; Neutrophils # 6.44 10^3/uL (1.8-7.7); Nucleated Red Blood Cells % 0 %; Platelet Count 223 10^3/cmm (157-399); Red Blood Count 2.93 10^6/uL (3.85-5.65); Red Cell Distribution Width 14.3 % (12.1-15.1); White Blood Count 8.05 10^3/uL (3.29-11.43)
[2024-04-11 05:15] LABS: Alanine Aminotransferase 11 U/L (0-33); Albumin Level 2.8 g/dL (3.5-5.2); Alkaline Phosphatase 60 U/L (35-105); Anion Gap 14.5 (5-19); Aspartate Amino Transferase 12 U/L (0-32); Blood Urea Nitrogen 26 mg/dL (8-23); Calcium 8.7 mg/dL (8.5-10.5); Carbon Dioxide 27 mmol/L (22-29); Chloride 102 mmol/L (98-107); Creatinine Clr Calc Pharmacy 33.1699; Globulin 2.7 g/dL (1.3-4.6); Glucose 182 mg/dL (65-115); Osmolality Calculated 297 mOsm/kg (285-295); Potassium 4.5 mmol/L (3.5-5.1); Sodium 139 mmol/L (136-145); Total Bilirubin 0.3 mg/dL (0.15-1.2); Total Protein 5.5 g/dL (6.6-8.7)
[2024-04-11] MEDS: carvedilol 3.125 mg Tablet PO ×2 (05:44→10:45)
[2024-04-11 06:29] LABS: Glucose Point of Care 163 mg/dL (70-110)
[2024-04-11 07:44] VITALS: BP 147/94; PULSE 96; RESP 23; TEMP 36.7; O2SAT 100
[2024-04-11] MEDS: aspirin 81 mg EC Tablet PO (08:05)
[2024-04-11] MEDS: pantoprazole DR 40 mg Tablet PO (08:05)
[2024-04-11] MEDS: clopidogrel 75 mg Tablet PO (08:05)
[2024-04-11] MEDS: insulin lispro 100 unit/1 mL SUBCUT (08:06)
[2024-04-11] MEDS: FUROsemide 40 mg Tablet 60 MG PO (08:08)
[2024-04-11 10:51] VITALS: PULSE 96; RESP 20; O2SAT 97
--- NOTE | 2024-04-11 10:58 | P.PN_ITS ---
<Statement entered by Elias Chi MD - 04/12/24 00:46> Patient was evaluated and cared for in conjunction with an advanced practice practitioner. I personally examined the patient and reviewed the chart and all pertinent data including imaging, telemetry, and laboratory results. I discussed the patient in detail with the advanced practice practitioner. Please see their note for complete H&P testing result and agreed upon plan of care for the patient. Patient feeling much better denies any complaint GENERAL: Patient is alert, awake and oriented x3. HEART: Regular S1 and S2. 2/6 systolic murmur, rub or gallop. LUNGS: Decreased breath sound bilaterally. CENTRAL NERVOUS SYSTEM: Grossly nonfocal. EXTREMITIES: Lower extremities with out edema bilaterally. CHF CAD Pleural effusion Assessment and plan Stable continue current management as below Subjective 2 Subjective: She has done well overnight, breathing feels better and she feels ready for discharge home. LVEF is 40%, recommend Entresto 24/26 mg twice daily, discontinuing lisinopril her previous home medication. Continue carvedilol 6.25 mg twice a day. Request she maintain a blood pressure log and bring it to her visit in the clinic in 10 days. Follow-up with cardiology [employer]. Continue aspirin, Plavix, atorvastatin. Reduce Lasix to 40 mg twice daily, may reduce further depending on clinical progress. Vitals/I&O/Wt Last Vital Signs Temp 98.0 F 04/11/24 07:44 Pulse 96 04/11/24 10:51 Resp 20 H 04/11/24 10:51 BP 147/94 04/11/24 07:44 Pulse Ox 97 04/11/24 10:51 O2 Del Method Nasal Cannula 04/11/24 10:51 O2 Flow Rate 2 04/11/24 10:51 04/10/24 04/11/24 04/11/24 22:59 06:59 14:59 Intake Total 540 / 1230 200 / 1230 120 / 120 Output Total 700 / 700 Balance -160 / 530 200 / 530 120 / 120 Weight last 48 hrs Weight 192 lb 14.472 oz Weight 192 lb 14.472 oz Physical Exam 2 Const: COMMON NORMALS: no acute distress and patient oriented x3 GENERAL APPEARANCE: cooperative and comfortable ORIENTATION/CONSCIOUSNESS: Yes awake, Yes oriented to person, Yes oriented to place and Yes oriented to time Chest: COMMONS NORMALS: normal inspection of the chest and normal palpation of entire chest wall CHEST: Yes Symmetrical chest wall rise Resp: COMMON NORMALS: normal respiratory effort, No retractions, No use of accessory muscles and clear to auscultation bilaterally EFFORT & INSPECTION: Yes symmetric chest movement AUSCULTATION: clear to auscultation bilaterally Cardio: COMMON NORMALS: regular rate, regular rhythm, S1 normal heart sound present, S2 normal heart sound present, No gallops present (Cardio), No clicks present (Cardio), No murmurs present (Cardio) and No rub (Cardio) RATE: r egular rate RHYTHM: regular rhythm HEART SOUNDS: S1 normal heart sound present and S2 normal heart sound present PERIPHERAL PULSES: radial pulses present Extremity: COMMON NORMALS: no pedal edema Neuro: COMMON NORMALS: patient oriented x3 and moves all extremities S ENSORIUM/ORIENTATION: Yes oriented to person, Yes oriented to place and Yes oriented to time Data 04/11/24 04:24 04/11/24 04:24 Micro: Microbiology 04/08/24 14:45 Urine Culture - Final Urine Catheterized A&P Assessment and plan (1) CHF (NYHA class III, ACC/AHA stage C): (2) Hypertension: (3) Coronary artery disease: (4) Hypercholesterolemia: Plan Okay to discharge home from cardiovascular perspective, adding low-dose Entresto. Please maintain blood pressure log. Continue aspirin, Plavix, atorvastatin, carvedilol. Follow-up with cardiology [employer] in 10 days. Attestations 2 Medical Necessity Statement*: Plan to discharge home, per hospitalist Coding Level of Care Code Acute Code for [facility] F[facility] Diagnoses CHF (NYHA class III, ACC/AHA stage C) I50.9 Hypertension I10 Coronary artery disease I25.10 Hypercholesterolemia E78.00
[2024-04-11 11:36] VITALS: BP 141/83; PULSE 91; RESP 20; TEMP 36.4; O2SAT 94
[2024-04-11 11:53] LABS: Glucose Point of Care 242 mg/dL (70-110)
[2024-04-11 12:05] VITALS: BP 141/83; PULSE 94; RESP 29; TEMP 37; O2SAT 93
--- NOTE | 2024-04-11 12:10 | P.DS_ITS ---
Discharge Providers Date of Admission: 04/08/24 09:44 Date of Discharge: April 11, 2024 Attending Provider at Admission: Mariia Gage MD Attending Provider at Discharge: Elidia Butler MD Primary Care Provider: ZENIA Morales Diagnoses at Discharge Discharge Diagnosis (1) CHF (NYHA class III, ACC/AHA stage C): Status: Acute (2) Hypertension: Status: Acute (3) Coronary artery disease: Status: Acute (4) Hypercholesterolemia: Status: Acute Hospital Course Hospital Course Analia Gotti is a 83 year old female with past medical history of CAD status post PCI, diabetes, hypertension, hyperlipidemia, obstructive sleep apnea on night time , not complaint with Cpap due to claustrophobia. Patient was admitted on 04/[address] from [facility] with concern for NSTEMI. Evaluation here showed trop 40s range with negative deltas, less concerning for ACS. Overall clinical impression that of acute on chronic CHF exacerbation. Echocardiogram LVEF of 40%, moderately decreased left ventricular systolic function. Grade 1 diastolic dysfunction additionally noted.. CXR showing pleural effusions B/L. Patient had been noncompliant with 40 mg of oral Lasix as seen on her home medication list. She states she was told that she does not need it anymore and has not been taking Lasix for several weeks. She was initiated on diuresis with lasix 40mg iv q12h. net negative 3.2 L since admission. Initially there was concern that patient may end up needing thoracentesis however she responded well to diuresis. She was able to be weaned off to room air during day time. She has been transitioned to Lasix 60mg po BID at the time of discharge . Patient had an episode of A fib with RVR on the morning of April 10 with heart rate of 150s. BP ranging 130-170 systolic. She responded well to single dose of iv metroprolol , converted to sinus rhythm. This was likely related to underlying sleep apnea, noncompliance with CPAP versus being off beta-blockers since admission. Her home dose of carvedilol was resumed and eventually titrated up to 6.25 mg twice daily at the time of discharge. Lisinopril was discontinued. New medication low-dose Entresto was added per cardiology recommendations. Patient's creatinine is at 1.4, patient's prior baseline creatinine in reviewing past numbers has been between 1-1.2. Patient is known to have a 14 mm exophytic cyst versus mass containing a large calcification arising from the upper pole of left kidney. Overall appearance dates back to July 2022. Patient is recommended to follow-up with her primary care physician to follow-up on the above findings. With initiation of Entresto and increased dose of Lasix, she is recommended to follow-up in the next 3 to 4 days for repeat CMP to monitor for any worsening of kidney function or electrolytes. Anticoagulation has not been initiated at the time of discharge as atrial fibrillation appears to be a one-time episode. Perhaps related to being off of her beta-blockers. Her hemoglobin is currently at 9.9. I am concerned that being on aspirin Plavix and anticoagulation would put her at a very high risk of bleeding. An event monitor has been arranged at discharge. If patient does not have any more episodes of atrial fibrillation on an event monitor, may be reasonable to hold off on anticoagulation. instrcuted to maintain a BP and HR log over the next week and bring to next cardiology appt. Physical Exam Narrative: General: No acute distress, AO x3 HEENT: PERRLA, pupils bilaterally equal and reactive, pallors not present Chest: Normal vesicular breath sounds, no added sounds, equal good air entry bilaterally CVS: S1-S2 regular, no murmurs, no tachycardia, no gallops, no rubs Abdomen: Soft, nontender, no organomegaly, bowel sounds present Neuro: No focal deficits, no facial deformity, AO x3, power 5/5 in all limbs Discharge Data Studies Completed and Pending Completed Studies During Hospitalization Category Date Time Status CT chest wo con [id number] Urgent Cat Scan 04/08/24 14:15 Completed CXRP [XR chest 1V portable [id number]] Routine Exams 04/10/24 14:53 Completed XR chest 1V portable [id number] Routine Exams 04/08/24 12:09 Completed CV. echo complete* [id number] Stat Ultrasound 04/08/24 12:07 Completed Pending at discharge Category Date Time Status Blood Culture Stat Lab 04/08/24 18:38 Results Radiology Impressions Chest CT 04/08/24 14:15 IMPRESSION: 1. Interval development of mild interstitial pulmonary edema with large bilateral pleural effusions and compressive atelectasis in the right and left lower lobes and left lingula. 2. Stable moderate to severe atherosclerotic changes, particularly in the visualized upper abdomen. 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 3. Interval development of mild body wall edema. 4. Incidental/nonacute findings are listed in the report. COMMENTS: Consistent with the [employer]'s Incidental Findings Committee white paper (J Am Johnny Radiol 2018): Any incidental renal lesion less than 1 cm or classified as too small to characterize, or any incidental cystic renal lesion characterized as simple-appearing, is likely benign. No follow-up imaging is recommended for these lesions per consensus recommendations based on imaging criteria. Chest X-Ray 04/10/24 14:53 IMPRESSION: 1. Questionable small bilateral pleural effusions. Laboratory Results WBC 8.05 10^3/uL (3.29-11.43) 04/11/24 04:24 RBC 2.93 10^6/uL (3.85-5.65) L 04/11/24 04:24 Hgb 9.90 g/dL (11.27-16.99) L 04/11/24 04:24 Hct 30.0 % (36-47) L 04/11/24 04:24 MCV 102.4 fl (85-98) H 04/11/24 04:24 MCH 33.8 pg (27-33) H 04/11/24 04:24 MCHC 33.0 g/dL (30-55) 04/11/24 04:24 RDW 14.3 % (12.1-15.1) 04/11/24 04:24 Plt Count 223 10^3/cmm (157-399) 04/11/24 04:24 MPV 11.7 fL (7.4-10.4) H 04/11/24 04:24 Neut % (Auto) 80.0 % 04/11/24 04:24 Lymph % (Auto) 9.8 % 04/11/24 04:24 [place] % (Auto) 6.7 % 04/11/24 04:24 Eos % (Auto) 2.5 % 04/11/24 04:24 Baso % (Auto) 0.6 % 04/11/24 04:24 Neut # (Auto) 6.44 10^3/uL (1.8-7.7) 04/11/24 04:24 Lymph # (Auto) 0.8 10^3/uL (0.8-4.8) 04/11/24 04:24 [place] # (Auto) 0.5 10^3/uL (0.2-0.9) 04/11/24 04:24 Eos # (Auto) 0.2 10^3/uL (0.0-0.8) 04/11/24 04:24 Baso # (Auto) 0.1 10^3/uL (0.0-0.1) 04/11/24 04:24 Nucleated RBC % (auto) 0 % 04/11/24 04:24 Nucleated RBCs # 0.0 /100WBC 04/11/24 04:24 Sodium 139 mmol/L (136-145) 04/11/24 04:24 Potassium 4.5 mmol/L (3.5-5.1) 04/11/24 04:24 Chloride 102 mmol/L (98-107) 04/11/24 04:24 Carbon Dioxide 27 mmol/L (22-29) 04/11/24 04:24 Anion Gap 14.5 (5-19) 04/11/24 04:24 BUN 26 mg/dL (8-23) H 04/11/24 04:24 Creatinine 1.4 mg/dL (0.5-0.9) H 04/11/24 04:24 GFR Calculation Not Reportable 04/11/24 04:24 Glucose 182 mg/dL (65-115) H 04/11/24 04:24 POC Glucose 242 mg/dL (70-110) H 04/11/24 11:34 Estimat Average Glucose 143 04/08/24 12:20 Hemoglobin A1c 6.6 % (4.0-6.0) H 04/08/24 12:20 Calculated Osmolality 297 mOsm/kg (285-295) H 04/11/24 04:24 Calcium 8.7 mg/dL (8.5-10.5) 04/11/24 04:24 Magnesium 1.5 mg/dL (1.7-2.3) L 04/10/24 05:42 Total Bilirubin 0.3 mg/dL (0.15-1.2) 04/11/24 04:24 AST 12 U/L (0-32) 04/11/24 04:24 ALT 11 U/L (0-33) 04/11/24 04:24 Alkaline Phosphatase 60 U/L (35-105) 04/11/24 04:24 Troponin T Baseline 48 ng/L (0-10) H 04/08/24 12:20 Troponin T 120 Minute 48.98 ng/L (0-10) H 04/08/24 13:50 Delta Troponin T 0.98 ABS# (0-10) 04/08/24 13:50 Troponin T Hi Sens 6Hr 42.60 ng/L (0-10) H 04/08/24 18:38 Troponin T Hi Sens 6Hr Delta -5.40 ng/L (0-12) L 04/08/24 18:38 Total Protein 5.5 g/dL (6.6-8.7) L 04/11/24 04:24 Albumin 2.8 g/dL (3.5-5.2) L 04/11/24 04:24 Globulin 2.7 g/dL (1.3-4.6) 04/11/24 04:24 Triglycerides 129 mg/dL (0-150) 04/08/24 12:20 Cholesterol 92 mg/dL (0-200) 04/08/24 12:20 LDL Cholesterol, Calc 34 mg/dL (50-129) L 04/08/24 12:20 Total VLDL Cholesterol 26 mg/dL (0-30) 04/08/24 12:20 HDL Cholesterol 32 mg/dL (60-100) L 04/08/24 12:20 Cholesterol/HDL Ratio 2.88 mg/dL (0.0-4.40) 04/08/24 12:20 Procalcitonin 0.23 ng/mL (0-0.5) 04/08/24 12:20 TSH 1.49 uIU/mL (0.27-4.20) 04/08/24 12:20 Adenovirus (PCR) Not detected (NOT DETECT) 04/08/24 14:45 C. pneumoniae DNA (PCR) Not detected (NOT DETECT) 04/08/24 14:45 Coronavirus 229E (PCR) Not detected (NOT DETECT) 04/08/24 14:45 Human Metapneumovir PCR Not detected (NOT DETECT) 04/08/24 14:45 Influenza A (H1) PCR Not detected (NOT DETECT) 04/08/24 14:45 Influ A (H1/09) PCR Not detected (NOT DETECT) 04/08/24 14:45 Influenza A (H3) PCR Not detected (NOT DETECT) 04/08/24 14:45 Influenza Type A (PCR) Not detected (NOT DETECT) 04/08/24 14:45 Influenza Type B (PCR) Not detected (NOT DETECT) 04/08/24 14:45 M. pneumoniae (PCR) Not detected (NOT DETECT) 04/08/24 14:45 Parainfluenza 1 (PCR) Not detected (NOT DETECT) 04/08/24 14:45 Parainfluenza 2 (PCR) Not detected (NOT DETECT) 04/08/24 14:45 Parainfluenza 3 (PCR) Not detected (NOT DETECT) 04/08/24 14:45 Parainfluenza 4 (PCR) Not detected (NOT DETECT) 04/08/24 14:45 RSV Type A (PCR) Not detected (NOT DETECT) 04/08/24 14:45 RSV Type B (PCR) Not detected (NOT DETECT) 04/08/24 14:45 Entero/Rhino (PCR) Not detected (NOT DETECT) 04/08/24 14:45 SARS-CoV-2 (PCR) Not detected (NOT DETECT) 04/08/24 14:45 Vitals Last Vital Signs Temp 98.6 F 04/11/24 12:05 Pulse 94 04/11/24 12:05 Resp 29 H 04/11/24 12:05 BP 141/83 04/11/24 12:05 Pulse Ox 93 04/11/24 12:05 O2 Del Method Nasal Cannula 04/11/24 11:36 O2 Flow Rate 2 04/11/24 10:51 Discharge Plan Discharge Patient Disposition: Home Condition: Stable Prescriptions: New furosemide 40 mg Tablet 60 mg PO BID@08,16 30 Days Qty: 60 0RF atorvastatin 40 mg Tablet 40 mg PO BEDTIME 30 Days Qty: 30 0RF clopidogrel 75 mg Tablet 75 mg PO DAILY 30 Days Qty: 30 0RF pantoprazole 40 mg Tablet,Delayed Release (Dr/Ec) 40 mg PO DAILY 30 Days Qty: 30 0RF sacubitril-valsartan [Entresto] 24-26 mg tablet 1 tab PO BID 30 Days Qty: 60 0RF Continued naproxen 375 mg tablet 375 mg PO BID PRN (Reason: Pain) hydrocodone-acetaminophen 10-325 mg tablet 1 tab PO Q6H PRN (Reason: Pain) ketoconazole 2 % cream 1 applic topical BID Qty: 15 0RF gabapentin 100 mg capsule 100 mg PO DAILY multivitamin Tablet 1 tab PO DAILY glipizide 10 mg tablet extended release 24hr 10 mg PO BID simvastatin 10 mg tablet 10 mg PO DAILY clopidogrel 75 mg tablet 75 mg PO DAILY calcium carbonate [Calcium 500] 500 mg calcium (1,250 mg) Tablet 500 mg PO DAILY aspirin 81 mg Tablet,Chewable 81 mg PO DAILY allopurinol 300 mg tablet 300 mg PO DAILY oxybutynin chloride 5 mg tablet 5 mg PO TID metformin 500 mg tablet extended release 24 hr 1,000 mg PO BID cholecalciferol (vitamin D3) [Vitamin D3] 25 mcg (1,000 unit) Capsule 25 mcg PO DAILY vitamin B complex Tablet 1 tab PO DAILY Changed carvedilol 3.125 mg tablet 6.25 mg PO BID 30 Days Qty: 120 0RF Discontinued lisinopril 20 mg tablet 20 mg PO DAILY Qty: 90 3RF Discharge Orders: Discharge Order (Routine); Ordered 04/11/24 Ordered By: Elidia Butler Other Ambulatory Orders: Comprehensive Metabolic Panel (Routine) Timeframe: 3 Days Facility: [facility] - Location: Lab - Main Lab Ordered By: Elidia Butler MCT/Event Monitor 21 Days (Routine) Timeframe: 20240411 Facility: [facility] - Location: Radiology Ordered By: Elidia Butler Referrals: Shena Coon, GALLO [Nurse Practitioner] - 04/18/24 2:30 pm (Also, you have an appointment with [facility] to be placed with an 21 day event monitor today @ 2:00p.m.) Aj Eli M.D [Physician] - (After your appointment with Shena Coon, you will be scheduled with Dr. Eli. If you have any questions please call ) Nancy Abdi FNP [Primary Care Provider] - 04/13/24 1:30 pm (Please check-in @ 1:15p.m. ) Discharge Diet: As Directed and Cardiac Discharge Activity: Resume usual activity Patient Instructions: Furosemide (By mouth) (Lasix), Atorvastatin (By mouth) (Lipitor, Atorvaliq), Clopidogrel (By mouth) (Plavix), Pantoprazole (By mouth) (Protonix), Astringent (On the skin) (A.E.R, A.E.R Traveler, John Raphael), Sacubitril/Valsartan (By mouth) (Entresto, Entresto Sprinkle), Coronary Artery Disease (DC), Hypertension (DC), CHF Stoplight, Opioid Safety Discharge Attestations Time Spent in Discharge Care*: greater than 30 min Quality Metrics Clinical Quality Measures [ No reported AMI, CVA or VTE this stay] Coding Level of Care Code Acute Code for Chg Fwd Diagnoses CHF (NYHA class III, ACC/AHA stage C) I50.9 Hypertension I10 Coronary artery disease I25.10 Hypercholesterolemia E78.00
--- NOTE | 2024-04-11 14:19 | PC.NURSE ---
Pharmacy called to verify patients RX.
== END 2024-04-11 13:52 | disposition home health service (06) | DRG 291 ==
LOC: ICU 04-10 04:48 → CSU 04-10 10:00
PROVIDERS: Admitting Provider Internal Medicine; PCP Registered Nurse; Visit Provider Student in an Organized Health Care Education/Training Program
DX: I13.0 Hypertensive heart and chronic kidney disease with heart failure and stage 1 through stage 4 chronic kidney disease, or unspecified chronic kidney disease (principal); I50.23 Acute on chronic systolic (congestive) heart failure; N17.9 Acute kidney failure, unspecified; N39.0 Urinary tract infection, site not specified; E11.22 Type 2 diabetes mellitus with diabetic chronic kidney disease; N18.9 Chronic kidney disease, unspecified; I25.10 Atherosclerotic heart disease of native coronary artery without angina pectoris; E78.5 Hyperlipidemia, unspecified; G47.33 Obstructive sleep apnea (adult) (pediatric); T50.1X6A Underdosing of loop [high-ceiling] diuretics, initial encounter; Z91.128 Patient's intentional underdosing of medication regimen for other reason; I48.91 Unspecified atrial fibrillation; N28.89 Other specified disorders of kidney and ureter; I73.9 Peripheral vascular disease, unspecified; R32 Unspecified urinary incontinence; Z91.148 Patient's other noncompliance with medication regimen for other reason; Z91.199 Patient's noncompliance with other medical treatment and regimen due to unspecified reason; Z79.02 Long term (current) use of antithrombotics/antiplatelets; Z79.84 Long term (current) use of oral hypoglycemic drugs; Z79.82 Long term (current) use of aspirin
CPT/HCPCS: 36415; 36416; 71045; 71250; 80053; 80061; 82962; 83036; 83735; 84145; 84443; 84484; 85025; 87040; 87086; 87486; 87581; 87633; 93005; 93306; 94664; 96372; 96374; 96376; J1644; J1815; J1940; J1956; J2270; J3490; J7030

== ENCOUNTER 2024-04-14 07:45 | Outpatient (CLI) | payer MEDICARE, SELFPAY ==
[2024-04-14 08:35] LABS: Alanine Aminotransferase 12 U/L (0-33); Albumin Level 3.2 g/dL (3.5-5.2); Alkaline Phosphatase 67 U/L (35-105); Anion Gap 17.1 (5-19); Aspartate Amino Transferase 17 U/L (0-32); Blood Urea Nitrogen 40 mg/dL (8-23); Calcium 8.7 mg/dL (8.5-10.5); Carbon Dioxide 26 mmol/L (22-29); Chloride 100 mmol/L (98-107); Globulin 3.6 g/dL (1.3-4.6); Glucose 161 mg/dL (65-115); Osmolality Calculated 301 mOsm/kg (285-295); Potassium 4.1 mmol/L (3.5-5.1); Sodium 139 mmol/L (136-145); Total Bilirubin 0.4 mg/dL (0.15-1.2); Total Protein 6.8 g/dL (6.6-8.7)
== END 2024-04-14 07:46 | disposition home or self-care (01) ==
LOC: LAB 07:46
PROVIDERS: PCP Registered Nurse; Visit Provider Student in an Organized Health Care Education/Training Program
DX: I50.9 Heart failure, unspecified (principal)
CPT/HCPCS: 36415; 80053

== ENCOUNTER → 2024-04-18 15:37 | Outpatient (BNVA) | payer MEDICARE, SELFPAY | PROVIDERS: PCP Registered Nurse; Visit Provider Nurse Practitioner Family | DX: R05.9 Cough, unspecified (principal); I11.0 Hypertensive heart disease with heart failure; I50.9 Heart failure, unspecified; I48.91 Unspecified atrial fibrillation; E78.00 Pure hypercholesterolemia, unspecified; I25.10 Atherosclerotic heart disease of native coronary artery without angina pectoris; I71.9 Aortic aneurysm of unspecified site, without rupture; Z87.891 Personal history of nicotine dependence | CPT/HCPCS: 36415; 71046; 80048; 83880; 85025; 99214 ==

== ENCOUNTER 2024-04-28 09:04 | Outpatient (CLI) | payer MEDICARE, SELFPAY ==
[2024-04-28 09:40] LABS: Anion Gap 18.8 (5-19); Blood Urea Nitrogen 54 mg/dL (8-23); Carbon Dioxide 24 mmol/L (22-29); Chloride 96 mmol/L (98-107); Glucose 239 mg/dL (65-115); Osmolality Calculated 301 mOsm/kg (285-295); Potassium 4.8 mmol/L (3.5-5.1); Sodium 134 mmol/L (136-145)
== END 2024-04-28 09:05 | disposition home or self-care (01) ==
PROVIDERS: PCP Registered Nurse; Visit Provider Nurse Practitioner Family
DX: I10 Essential (primary) hypertension (principal)
CPT/HCPCS: 80048

== ENCOUNTER 2024-05-15 11:54 | Outpatient (CLI) | payer MEDICARE, SELFPAY ==
[2024-05-15 12:53] LABS: Blood Urea Nitrogen 35 mg/dL (8-23); Calcium 9.1 mg/dL (8.5-10.5); Carbon Dioxide 22 mmol/L (22-29); Chloride 109 mmol/L (98-107); Glucose 175 mg/dL (65-115); Osmolality Calculated 304 mOsm/kg (285-295); Sodium 141 mmol/L (136-145)
[2024-05-15 13:06] LABS: Anion Gap 15.1 (5-19); Potassium 5.1 mmol/L (3.5-5.1)
== END 2024-05-15 11:55 | disposition home or self-care (01) ==
LOC: LAB 11:55
PROVIDERS: PCP Registered Nurse; Visit Provider Nurse Practitioner Family
DX: I50.9 Heart failure, unspecified (principal); I25.10 Atherosclerotic heart disease of native coronary artery without angina pectoris
CPT/HCPCS: 36415; 80048

== ENCOUNTER → 2024-05-25 07:15 | Outpatient (BNVA) | payer MEDICARE, SELFPAY | PROVIDERS: PCP Registered Nurse; Visit Provider Podiatrist Foot & Ankle Surgery | DX: E11.69 Type 2 diabetes mellitus with other specified complication (principal); B35.1 Tinea unguium; I73.9 Peripheral vascular disease, unspecified; Z89.421 Acquired absence of other right toe(s); M79.671 Pain in right foot; M79.672 Pain in left foot; Z79.84 Long term (current) use of oral hypoglycemic drugs | CPT/HCPCS: 11056; 11721 ==

== ENCOUNTER → 2024-05-26 10:30 | Outpatient (BNVA) | payer MEDICARE, SELFPAY | PROVIDERS: PCP Registered Nurse; Visit Provider Internal Medicine | DX: I48.91 Unspecified atrial fibrillation (principal); E78.00 Pure hypercholesterolemia, unspecified; I25.10 Atherosclerotic heart disease of native coronary artery without angina pectoris; I73.9 Peripheral vascular disease, unspecified; I11.0 Hypertensive heart disease with heart failure; I50.9 Heart failure, unspecified | CPT/HCPCS: 99214 ==

== ENCOUNTER 2024-05-31 19:32 | Inpatient (IN) | payer MEDICARE, SELFPAY ==
[2024-05-31] VITALS (12 sets, daily range): BP systolic 90–140; BP diastolic 43–68; PULSE 27–104; RESP 14–16; TEMP 36.4; O2SAT 81–97; BMI 31.9
--- NOTE | 2024-05-31 19:38 | XRR_ITS ---
PROCEDURE INFORMATION: Exam: XR Chest Exam date and time: 05/31/2024 9:50 PM Age: 83 years old Clinical indication: Device placement; Other: Intubation; Additional info: Weakness, stroke like symptoms, syncopal episode, intubation check TECHNIQUE: Imaging protocol: Radiologic exam of the chest. Views: 1 view. COMPARISON: CR XR chest 2V* [id number] 04/18/2024 3:57 PM FINDINGS: Tubes, catheters and devices: Rectangular object overlying the right hemithorax. Endotracheal tube is 2.9 cm from the steffen. Lungs: There are moderate central pulmonary vasculature congestive changes. Bibasilar opacities reflecting atelectasis or scarring. Pleural spaces: Unremarkable. No pleural effusion. No pneumothorax. Heart/Mediastinum: Mild cardiomegaly. Bones/joints: Unremarkable. XR/XR chest 1V portable [id number] IMPRESSION: As above.
--- NOTE | 2024-05-31 19:39 | W.ED.WEAKNES ---
HPI - Weakness General: Chief complaint: Weakness Stated complaint: weakness Time Seen by Provider: 05/31/24 19:34 Source: patient and EMS Mode of arrival: EMS Limitations: no limitations History of Present Illness: 83-year-old female who states that tonight she started feeling extremely weak per EMS she had got very diaphoretic and almost passed out she states she had felt like a lymph node all had some confusion she states she feels improved currently EMS states she is improved and route she no focal deficits no slurred speech states she was recently diagnosed with UTI did not finish her antibiotics today made her feel ill she denies any pain anywhere denies any fevers. Her blood sugar was 400 with EMS Associated symptoms: Denies chest pain, chills, fever(s), headache(s), nausea or vomiting Review of Systems Const: Denies: fever(s), chills, body aches or change in appetite Eyes: Denies: blurry vision or eye discomfort ENMT: Denies: throat pain or dental pain Card: Reports: pre-syncope; Denies: chest pain Resp: Denies: dyspnea GI: Denies: abdominal pain, nausea, vomiting or diarrhea Musc: Denies: neck pain or back pain Skin/Breast: Denies: rash Neuro: Reports: weakness in extremities; Denies: headache(s) PFSH ED PFSH: Medical History CHF (NYHA class III, ACC/AHA stage C) Sleep apnea Coronary artery disease Hypertension Hypercholesterolemia Diabetes Surgical History History of PTCA History of tonsillectomy H/O: hysterectomy Hx of cholecystectomy Family History Father Hypertension Social History Smoking and tobacco/nicotine status: former use of tobacco/nicotine Alcohol intake: never Physical Exam Const: COMMON NORMALS: patient oriented x3 HENMT: COMMON NORMALS: normocephalic and atraumatic HEAD & SCALP: normocephalic and atraumatic Eye: COMMON NORMALS: Equal, round and reactive pupils present and EOMs intact bilaterally PUPIL: Yes Equal, round and reactive pupils present Neck/C-Spine: COMMON NORMALS: full ROM and supple Chest: COMMONS NORMALS: normal inspection of the chest and normal palpation of entire chest wall Resp: COMMON NORMALS: normal respiratory effort, No retractions, No use of accessory muscles and clear to auscultation bilaterally AUSCULTATION: clear to auscultation bilaterally Cardio: COMMON NORMALS: regular rate, regular rhythm and No murmurs present (Cardio) RATE: regular rate RHYTHM: regular rhythm GI: COMMON NORMALS: Normal to inspection, nondistended, normoactive bowel sounds present, Soft to palpation, non-tender and no masses PALPATION: Yes Soft to palpation Extremity: COMMON NORMALS: normal to inspection and full ROM Neuro: COMMON NORMALS: patient oriented x3, moves all extremities and no focal motor deficits CRANIAL NERVES: Yes CN normal except as noted SPEECH: speech normal MOTOR EXAM: 5/5 motor strength present throughout Psych: COMMON NORMALS: mental status grossly normal, Normal thought process present and cooperative THOUGHT PROCESS: Normal thought process present Skin: COMMON NORMALS: no rashes or lesions noted and no wounds GENERAL SKIN EXAM: no rashes or lesions noted Procedures Intubation Time out performed: Yes sedative: Etomidate Mg Given: 20 paralytic: Vecuronium Mg Given: 10 Laryngoscope: [place] ET Tube Size: 8 ET Tube Uncuffed: No Tube Secured Depth (cm): 24 Tube Secured Location: lips Tube Placement Confirmation: visualized tube passing through cords, equal breath sounds bilaterally, no breath sounds over epigastrium and confirmation by capnometry Patient Tolerated Procedure: well Intubation Complications: none Course Vital Signs: Vital signs: Vital Signs Temperature 97.6 F 05/31/24 19:32 Pulse Rate 88 05/31/24 20:03 Respiratory Rate 16 05/31/24 19:32 Blood Pressure 127/55 05/31/24 20:03 Pulse Oximetry 92 05/31/24 20:03 Oxygen Delivery Me thod Room Air 05/31/24 20:03 MDM - Weakness Medical Decision Making Patient presents here originally with a syncopal event patient when she came back from [place] had another syncopal event she is found to be extremely bradycardic into the 20s. Patient was started on a dopamine drip titrated to 20 then required external pacing as well. She had 1 period where she got up to the 110s and turned off the pacer turned down the dopamine but she became bradycardic again and started pacing again patient was intubated as well I spoke to senior ios developer Dr. Morin and he is taking patient to the [facility] for a temporary pacemaker. Medical Records I reviewed the patient's medical records. Lab Data I reviewed the patient's lab results. 05/31/24 20:01 05/31/24 20:[address] 05/31/24 19:41 IMPRESSION: No acute intracranial process. Senescent changes. If there is continued clinical concern for an acute ischemic event then follow up with a brain MRI examination. Laboratory Results WBC 12.77 10^3/uL (3.29-11.43) H 05/31/24 20: RBC 2.57 10^6/uL (3.85-5.65) L 05/31/24 20:01 Hgb 8.50 g/dL (11.27-16.99) L 05/31/24 20: Hct 26.7 % (36-47) L 05/31/24 20: MCV 103.9 fl (85-98) H 05/31/24 20:01 MCH 33.1 pg (27-33) H 05/31/24 20: MCHC 31.8 g/dL (30-55) 05/31/24 20: RDW 15.2 % (12.1-15.1) H 05/31/24 20:01 Plt Count 191 10^3/cmm (157-399) 05/31/24 20: MPV 11.1 fL (7.4-10.4) H 05/31/24 20:01 Neut % (Auto) 89.8 % 05/31/24 20:01 Lymph % (Auto) 3.8 % 05/31/24 20: [place] % (Auto) 4.9 % 05/31/24 20: Eos % (Auto) 0.6 % 05/31/24 20: Baso % (Auto) 0.4 % 05/31/24 20: Neut # (Auto) 11.47 10^3/uL (1.8-7.7) H 05/31/24 20: Lymph # (Auto) 0.5 10^3/uL (0.8-4.8) L 05/31/24 20:01 [place] # (Auto) 0.6 10^3/uL (0.2-0.9) 05/31/24 20: Eos # (Auto) 0.1 10^3/uL (0.0-0.8) 05/31/24 20: Baso # (Auto) 0.1 10^3/uL (0.0-0.1) 05/31/24 20: Nucleated RBC % (auto) 0 % 05/31/24 20: Nucleated RBCs # 0.0 /100WBC 05/31/24 20: PT 14.20 SECONDS (12.1-14.9) 05/31/24 20: INR 1.03 (0.8-1.2) 05/31/24 20: Sodium 131 mmol/L (136-145) L 05/31/24 20: Potassium 5.3 mmol/L (3.5-5.1) H 05/31/24 20: Chloride 103 mmol/L (98-107) 05/31/24 20: Carbon Dioxide 17 mmol/L (22-29) L 05/31/24 20: Anion Gap 16.3 (5-19) 05/31/24 20: BUN 36 mg/dL (8-23) H 05/31/24 20: Creatinine 1.5 mg/dL (0.5-0.9) H 05/31/24 20: GFR Calculation Not Reportable 05/31/24 20: Glucose 249 mg/dL (65-115) H 05/31/24 20: POC Glucose 252 mg/dL (70-110) H 05/31/24 20:06 Calculated Osmolality 289 mOsm/kg (285-295) 05/31/24 20: Calcium 8.2 mg/dL (8.5-10.5) L 05/31/24 20: Magnesium 1.6 mg/dL (1.7-2.3) L 05/31/24 20: Total Bilirubin 0.3 mg/dL (0.15-1.2) 05/31/24 20: AST 57 U/L (0-32) H 05/31/24 20: ALT 28 U/L (0-33) 05/31/24 20:01 Alkaline Phosphatase 79 U/L (35-105) 05/31/24 20:01 Troponin T Baseline 161 ng/L (0-10) H* 05/31/24 20:01 Total Protein 5.8 g/dL (6.6-8.7) L 05/31/24 20:01 Albumin 2.9 g/dL (3.5-5.2) L 05/31/24 20:01 Globulin 2.9 g/dL (1.3-4.6) 05/31/24 20:01 Lipase 15 U/L (13-60) 05/31/24 20:01 TSH 2.76 uIU/mL (0.27-4.20) 05/31/24 20:01 Urine Color Yellow (Yellow) 05/31/24 19:50 Urine Appearance Clear (CLEAR) 05/31/24 19:50 Urine pH 5.0 (5-7) 05/31/24 19:50 Ur Specific [place] 1.012 (1.005-1.030) 05/31/24 19:50 Urine Protein 2+ (Negative) A 05/31/24 19:50 Urine Glucose (UA) Negative (Normal) 05/31/24 19:50 Urine Ketones Negative (Negative) 05/31/24 19:50 Urine Blood Negative (Negative) 05/31/24 19:50 Urine Nitrate Negative (Negative) 05/31/24 19:50 Urine Bilirubin Negative (Negative) 05/31/24 19:50 Urine Urobilinogen 0.2 mg/dL (Negative) 05/31/24 19:50 Ur Leukocyte Esterase Negative (Negative) 05/31/24 19:50 Urine RBC 0-2 /hpf (0-2) 05/31/24 19:50 Urine WBC 0-5 /hpf (0-5) 05/31/24 19:50 Ur Squamous Epith Cells 0-5 /hpf (0-5) 05/31/24 19:50 Amorphous Sediment Not Reportable 05/31/24 19:50 Urine Bacteria None seen /hpf (NONE) 05/31/24 19:50 Hyaline Casts 12.41 /lpf 05/31/24 19:50 All radiology interpretation(s) finalized by discharge EKG Data EKG 1: I personally reviewed and interpreted this EKG as follows: EKG interpretation date: 05/31/24 EKG interpretation time: 19:42 Interpretation: nsr hr [address] elevation qrs 163 qtc 456 Critical Care Time Critical Care Time: Critical Care Time: Yes Total Critical Care Time: 55 Attestation: The high probability of a clinically significant, sudden or life threatening deterioration of the patient's cv system(s) required my full and direct attention, intervention and personal management. The critical care time is as shown. This time is in addition to time spent performing any reported procedures but includes the following: [x] Data and vital sign review and interpretation [x] Patient assessment, examination and intervention [x] Documentation [x] Medication orders and management Discharge Plan Discharge Patient Disposition: Admitted As Inpatient Clinical Impression: Bradycardia, Syncope Condition: Stable Coding Level of Care Code ED Upset Operator for Chg Fwd Related Data Home Medications ?Medication ?Instructions ?Recorded ?Confirmed allopurinol 300 mg tablet 300 mg PO DAILY 11/16/19 05/26/24 aspirin 81 mg chewable tablet 81 mg PO DAILY 11/16/19 05/26/24 glipizide 10 mg tablet, extended 10 mg PO BID 11/16/19 05/26/24 release 24 hr metformin 500 mg tablet,extended 1,000 mg PO BID 11/16/19 05/26/24 release 24 hr multivitamin 1 tab PO DAILY 11/16/19 05/26/24 gabapentin 100 mg capsule 100 mg PO DAILY 01/18/23 05/26/24 clopidogrel 75 mg tablet 75 mg PO DAILY 05/08/24 05/26/24 Cranberry Extract PO 05/26/24 05/26/24 amoxicillin 500 mg-potassium 1 tab PO Q12H 05/26/24 05/26/24 clavulanate 125 mg tablet atorvastatin 10 mg tablet (Lipitor) 10 mg PO DAILY 05/26/24 05/26/24 furosemide 40 mg tablet (Lasix) 40 mg PO BID PRN 05/26/24 05/26/24 olmesartan 20 mg tablet (Benicar) 20 mg PO DAILY 05/26/24 05/26/24 pantoprazole 40 mg tablet,delayed 40 mg PO DAILY 05/26/24 05/26/24 release potassium chloride 20 mEq 20 meq PO DAILY PRN 05/26/24 05/26/24 tablet,extended release Previous Rx's ?Medication ?Instructions ?Recorded carvedilol 3.125 mg tablet 6.25 mg (2 x 3.125 mg) PO BID 30 04/11/24 days #120 tabs Allergies Allergy/AdvReac Type Severity Reaction Status Date / Time metformin Allergy ADR/ALGY-Pa Verified 05/31/24 19:39 leness Sulfa (Sulfonamide Allergy ALGY-Hives Verified 05/31/24 19:39 Antibiotics) NIH stroke score NIHSS Level Of Consciousness - 1a: 0 Level Of Consciousness Questions - 1b: Both Correct Level Of Consciousness Commands - 1c: Both Correct Best Gaze - 2: Normal Visual Jane - 3: No Visual Loss Facial Palsy - 4: Normal Motor Arm Right - 5: No Drift Motor Arm Left - 5: No Drift Motor Leg Right - 6: No Drift Motor Leg Left - 6: No Drift Limb Ataxia - 7: Absent Sensory - 8: Normal Best Language - 9: No Aphasia Dysarthia - 10: Normal Extinction And Inattention - 11: 0 Score Total Score: 0
--- NOTE | 2024-05-31 19:41 | CTR_ITS ---
PROCEDURE INFORMATION: Exam: CT Head Without Contrast Exam date and time: 05/31/2024 8:56 PM Age: 83 years old Clinical indication: Syncope and collapse; Additional info: Weakness TECHNIQUE: Imaging protocol: Computed tomography of the head without contrast. Radiation optimization: All CT scans at this facility use at least one of these dose optimization techniques: automated exposure control; mA and/or kV adjustment per patient size (includes targeted exams where dose is matched to clinical indication); or iterative reconstruction. COMPARISON: CT head wo con* [id number] 11/16/2019 12:27 PM RADIATION DOSE METRICS: Total DLP (mGy-cm): 1167.18 FINDINGS: Brain: Age-related brain parenchymal atrophy. Areas of hypoattenuation in the periventricular and subcortical deep white matter likely on the basis of chronic microvascular ischemic changes. No acute intra cranial hemorrhage. No mass effect or midline shift. No definitive CT evidence of acute territorial infarction. Cerebral ventricles: Prominence of the lateral ventricular system likely on the basis of ex vacuo dilatation. Paranasal sinuses: Visualized sinuses are unremarkable. No fluid levels. Mastoid air cells: Trace effusions in the left mastoid air cells. Bones: Intact calvarium. Soft tissues: Unremarkable. CT/CT head wo con* [id number] IMPRESSION: No acute intracranial process. Senescent changes. If there is continued clinical concern for an acute ischemic event then follow up with a brain MRI examination.
--- NOTE | 2024-05-31 19:42 | ECG_ITS ---
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 Measurements Intervals [place] Rate: 84 P: 19 WI: 178 QRS: 141 QRSD: 163 T: 62 QT: 415 QTc: 493 Interpretive Statements SINUS RHYTHM RIGHT AXIS DEVIATION [QRS AXIS > 100] RIGHT BUNDLE BRANCH BLOCK [120+ ms QRS DURATION, UPRIGHT V1, 40+ ms S IN I/aVL/V4/V5/V6] PROBABLE SEPTAL MYOCARDIAL INFARCTION , OF INDETERMINATE AGE [35 ms Q WAVE IN V1/V2] MODERATE T-WAVE ABNORMALITY, CONSIDER LATERAL ISCHEMIA [-0.1+ mV T-WAVE IN I/aVL/V5/V6] Compared to ECG 04/10/2024 05:16:16 Right-axis deviation now present Left-axis deviation no longer present Myocardial infarct finding still present Electronically Signed On 06-02-2024 19:09:56 CDT by Aj Eli M.D. [email or web address] [id number]
[2024-05-31 20:09] LABS: Bilirubin Urine Negative (Negative); Blood Urine Negative (Negative); Glucose Urine UA Negative (Normal); Ketones Urine Negative (Negative); Leukocyte Esterase Urine Negative (Negative); Nitrate Urine Negative (Negative); Protein Urine 2+ (Negative); Specific Gravity, Urine 1.012 (1.005-1.030); Urine Appearance Clear (CLEAR); Urine Color Yellow (Yellow); Urobilinogen Urine 0.2 mg/dL (Negative)
[2024-05-31 20:11] LABS: Glucose Point of Care 252 mg/dL (70-110)
[2024-05-31 20:14] LABS: Add Urine Microscopic? YES; Bacteria Urine None Seen /hpf; Hyaline Casts Urine 12.41 /lpf; RBC Urine 0-2 /hpf (0-2); Squamous Epithelial Cell Urine 0-5 /hpf (0-5); WBC Urine 0-5 /hpf (0-5)
[2024-05-31 20:15] LABS: Basophils # 0.1 10^3/uL (0.0-0.1); Basophils % 0.4 %; Eosinophils # 0.1 10^3/uL (0.0-0.8); Eosinophils % 0.6 %; Hematocrit 26.7 % (36-47); Lymphocytes # 0.5 10^3/uL (0.8-4.8); Lymphocytes % 3.8 %; Mean Corpuscular HGB Conc 31.8 g/dL (30-55); Mean Corpuscular Hemoglobin 33.1 pg (27-33); Mean Corpuscular Volume 103.9 fl (85-98); Mean Platelet Volume 11.1 fL (7.4-10.4); Monocytes # 0.6 10^3/uL (0.2-0.9); Monocytes % 4.9 %; Neutrophils # 11.47 10^3/uL (1.8-7.7); Neutrophils % 89.8 %; Nucleated Red Blood Cells % 0 %; Platelet Count 191 10^3/cmm (157-399); Red Blood Count 2.57 10^6/uL (3.85-5.65); Red Cell Distribution Width 15.2 % (12.1-15.1); White Blood Count 12.77 10^3/uL (3.29-11.43)
[2024-05-31 20:30] LABS: INR 1.03 (0.8-1.2)
[2024-05-31 20:51] LABS: Alanine Aminotransferase 28 U/L (0-33); Albumin Level 2.9 g/dL (3.5-5.2); Alkaline Phosphatase 79 U/L (35-105); Anion Gap 16.3 (5-19); Aspartate Amino Transferase 57 U/L (0-32); Blood Urea Nitrogen 36 mg/dL (8-23); Calcium 8.2 mg/dL (8.5-10.5); Carbon Dioxide 17 mmol/L (22-29); Chloride 103 mmol/L (98-107); Globulin 2.9 g/dL (1.3-4.6); Glucose 249 mg/dL (65-115); Lipase 15 U/L (13-60); Magnesium 1.6 mg/dL (1.7-2.3); Osmolality Calculated 289 mOsm/kg (285-295); Potassium 5.3 mmol/L (3.5-5.1); Sodium 131 mmol/L (136-145); Thyroid Stimulating Hormone 2.76 uIU/mL (0.27-4.20); Total Bilirubin 0.3 mg/dL (0.15-1.2); Total Protein 5.8 g/dL (6.6-8.7)
[2024-05-31 20:57] LABS: Troponin(5th) Baseline 161 ng/L (0-10)
[2024-05-31] MEDS: atropine 0.1 mg/mL Syr 10 mL 1 MG IVP ×2 (21:00→21:10)
[2024-05-31] MEDS: DOPamine drip 400 MG/250 ML PREMIX 31.64 MG IV (21:15)
[2024-05-31] MEDS: magnesium sulfate premix 2 GM/50 ML PIGGYBACK IV (21:15)
--- NOTE | 2024-05-31 21:24 | PM.CONSULT ---
Providers/Reason For Consult Consulting Physician/Specialty*: Elias Chi MD Reason for Consult*: Complete heart block with underlying atrial flutter rhythm Recurrent syncope Requesting Physician: Dr. Ma ER physician Primary Care Provider: ZENIA Morales History of Present Illness History of Present Illness Analia Gotti is a 83 year old female past medical history significant for coronary artery disease moderately depressed left ventricle ejection fraction congestive heart failure peripheral arterial disease diabetes mellitus chronic kidney disease history of bradycardia presented with recurrent syncope in the ER patient was noted to be in A-fib intermittent with showing long multiple pauses with complete heart block, patient passed out couple of times in the ER. Due to instability she was intubated and sedated along with external pacing and dopamine drip. Twelve-lead EKG shows right bundle branch block which is old. There is no significant ST's ST changes suggestive of ST elevation ID noted. Initial cardiac markers troponin was 160. Patient was taken to the Copy Cutter after intubation and stabilizing in the ER. Temporary pacemaker was placed through right IJ. Good capture and pacing was confirmed. Right radial approach was adopted to perform coronary angiogram with was suggestive of chronically occluded mid 100% stenotic RCA not the culprit, difficulty in engagement because of torturous aorta was noted, ostial LAD appeared to be 90% stenotic while proximal circumflex and few angles appear to be hazy and calcified it is hard to assess the severity of the lesion versus streaming artifact. Since acute coronary syndrome was not the initial presentation and because of the fact left ventricular end-diastolic pressure was 39 mmHg we are planning to diurese the patient reduce LVEDP assess LV function and consider IVUS guided PCI may requiring atherectomy or lithotripsy. Patient potassium is mildly elevated, will normalize the potassium at the same time will monitor patient on temporary pacemaker it appeared to me that patient already has right bundle branch block with underlying paroxysmal atrial fibrillation. Most likely patient has underlying conduction abnormality requiring permanent pacemaker placement, we do not have this level of service for permanent pacemaker here therefore we will transfer the patient, I will discuss her option which again include PCI versus CABG along with permanent pacemaker placement with [facility] after discussion with the family which ever is feasible with them. Review of Systems Const: Denies: fever(s), chills, body aches or change in appetite Eyes: Denies: blurry vision or eye discomfort ENMT: Denies: throat pain or dental pain Card: Reports: pre-syncope; Denies: chest pain Resp: Denies: dyspnea GI: Denies: abdominal pain, nausea, vomiting or diarrhea Musc: Denies: neck pain or back pain Skin/Breast: Denies: rash Neuro: Reports: weakness in extremities; Denies: headache(s) Medications/Allergies Home Medications ?Medication ?Instructions ?Recorded ?Confirmed ?Last Taken ?Type allopurinol 300 mg tablet 300 mg PO DAILY 11/16/19 05/26/24 05/10/22 History aspirin 81 mg chewable tablet 81 mg PO DAILY 11/16/19 05/26/24 05/11/22 History glipizide 10 mg tablet, extended 10 mg PO BID 11/16/19 05/26/24 05/11/22 History release 24 hr metformin 500 mg tablet,extended 1,000 mg PO BID 11/16/19 05/26/24 05/11/22 History release 24 hr multivitamin 1 tab PO DAILY 11/16/19 05/26/24 05/11/22 History gabapentin 100 mg capsule 100 mg PO DAILY 01/18/23 05/26/24 Unknown History carvedilol 3.125 mg tablet 6.25 mg (2 x 3.125 mg) PO BID 30 04/11/24 05/26/24 Unknown Rx days #120 tabs clopidogrel 75 mg tablet 75 mg PO DAILY 05/08/24 05/26/24 Unknown History Cranberry Extract PO 05/26/24 05/26/24 Unknown History amoxicillin 500 mg-potassium 1 tab PO Q12H 05/26/24 05/26/24 Unknown History clavulanate 125 mg tablet atorvastatin 10 mg tablet (Lipitor) 10 mg PO DAILY 05/26/24 05/26/24 Unknown History furosemide 40 mg tablet (Lasix) 40 mg PO BID PRN 05/26/24 05/26/24 Unknown History olmesartan 20 mg tablet (Benicar) 20 mg PO DAILY 05/26/24 05/26/24 Unknown History pantoprazole 40 mg tablet,delayed 40 mg PO DAILY 05/26/24 05/26/24 Unknown History release potassium chloride 20 mEq 20 meq PO DAILY PRN 05/26/24 05/26/24 Unknown History tablet,extended release Allergies Allergy/AdvReac Type Severity Reaction Status Date / Time metformin Allergy ADR/ALGY-Pa Verified 05/31/24 19:39 leness Sulfa (Sulfonamide Allergy ALGY-Hives Verified 05/31/24 19:39 Antibiotics) PFSH Acute PFSH: Medical History CHF (NYHA class III, ACC/AHA stage C) Sleep apnea Coronary artery disease Hypertension Hypercholesterolemia Diabetes Surgical History History of PTCA History of tonsillectomy H/O: hysterectomy Hx of cholecystectomy Family History Father Hypertension Social History Smoking and tobacco/nicotine status: former use of tobacco/nicotine Alcohol intake: never Dietary Habits: Current diet type/program: diabetic Caffeine: Yes Vitals/I&O/Wt Last Vital Signs Temp 97.6 F 05/31/24 19:32 Pulse 88 05/31/24 20:03 Resp 16 05/31/24 19:32 BP 127/55 05/31/24 20:03 Pulse Ox 92 05/31/24 20:03 O2 Del Method Room Air 05/31/24 20:03 05/31/24 05/31/24 05/31/24 06:59 14:59 22:59 Intake Total 500 / 500 Balance 500 / 500 Weight last 48 hrs Weight 186 lb Physical Exam Const: OTHER: GENERAL: Patient is a intubated and sedated HEART: Irregularly irregular S1 and S2. No murmur, rub or gallop. LUNGS: Decreased breath sound auscultate bilaterally. CENTRAL NERVOUS SYSTEM: Cannot assess due to sedation EXTREMITIES: Lower extremities with out edema bilaterally. Data 06/01/24 02:03 06/01/24 02:03 A&P Assessment and plan (1) Hyperkalemia: (2) Chronic kidney disease: (3) Sick sinus syndrome: (4) Syncope: (5) Bradycardia: (6) Afib: (7) CHF (NYHA class III, ACC/AHA stage C): (8) Non-STEMI (non-ST elevated myocardial infarction): Plan Patient is under hospitalist service in the ICU she is intubated we will keep her intubated overnight Due to high left ventricular end-diastolic pressure of almost 39 mmHg I will diurese the patient with IV Lasix 40 twice daily Hyperkalemia will be managed by diuresis, and as per medicine colleague recommendation Will continue to assess need for pacemaker if irreversible may need permanent pacemaker for that patient may need to be transferred since we do not have that level of care here. Non-ST elevation ID patient has ostial significant LAD disease, ostial left circumflex in few views appeared to be hazy which could be calcification or true lesion may require IVUS which would can be planned once left ventricular end-diastolic pressure improves as in case of calcified lesion patient may require atherectomy given ostial LAD involvement PCI can be complex therefore need to optimize patient condition Echocardiogram will be obtained to assess LV function Titrate dopamine drip of Initiate transfer to [facility] where bed is available for permanent pacemaker placement PDMP PDMP Reviewed: Not Reviewed Consult Attestations Medical Necessity Statement: Patient appeared to be in critical condition requiring continuation hospitalization in the ICU. I am expecting her stay to cross more than 2 midnights. Coding Level of Care Code Acute Code for g Fwd Diagnoses Hyperkalemia E87.5 Chronic kidney disease N18.9 Sick sinus syndrome I49.5 Syncope R55 Bradycardia R00.1 Afib I48.91 CHF (NYHA class III, ACC/AHA stage C) I50.9 Non-STEMI (non-ST elevated myocardial infarction) I21.4
--- NOTE | 2024-05-31 21:29 | ECG_ITS ---
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: : 1940 Requested By: Francesca Sewell Order Number: [id number] Reading MD: TANIA PARKINSON Measurements Intervals [place] Rate: 109 P: 0 LA: 0 QRS: 149 QRSD: 165 T: -2 QT: 329 QTc: 444 Interpretive Statements Sinus rythm with PACs RIGHT AXIS DEVIATION [QRS AXIS > 100] RIGHT BUNDLE BRANCH BLOCK [120+ ms QRS DURATION, UPRIGHT V1, 40+ ms S IN I/aVL/V4/V5/V6] PROBABLE SEPTAL MYOCARDIAL INFARCTION , OF INDETERMINATE AGE [35 ms Q WAVE IN V1/V2] Compared to ECG 05/31/2024 19:42:29 Sinus rhythm no longer present T-wave abnormality no longer present Possible ischemia no longer present Myocardial infarct finding still present Electronically Signed On 06-05-2024 18:25:14 CDT by TANIA PARKINSON [id number]
--- NOTE | 2024-05-31 21:29 | ECG_ITS ---
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 Measurements Intervals [place] Rate: 109 P: 0 WV: 0 QRS: 149 QRSD: 165 T: -2 QT: 329 QTc: 444 Interpretive Statements ATRIAL FIBRILLATION WITH RAPID VENTRICULAR RESPONSE RIGHT AXIS DEVIATION [QRS AXIS > 100] RIGHT BUNDLE BRANCH BLOCK [120+ ms QRS DURATION, UPRIGHT V1, 40+ ms S IN I/aVL/V4/V5/V6] PROBABLE SEPTAL MYOCARDIAL INFARCTION , OF INDETERMINATE AGE [35 ms Q WAVE IN V1/V2] Compared to ECG 05/31/2024 19:42:29 Sinus rhythm no longer present T-wave abnormality no longer present Possible ischemia no longer present Myocardial infarct finding still present Electronically Signed On 06-02-2024 19:08:27 CDT by Aj Eli M.D. [id number]
--- NOTE | 2024-05-31 21:33 | XACV_ITS ---
Exam Room: 2 Ht: 163 cm Wt: 84 kg BSA: 1.98 m2 Gender: Female : 1940 Exam Priority: Routine Procedure(s): Procedure Description: Diagnostic procedure Procedure Description: Left Heart Catheterization Procedure Description: Left ventriculography Procedure Description: Miscellaneous Procedure Description: Temporary Pacemaker Insertion Procedure Description: ACT Procedure Description: Coronary Angiography Diagnostic Cath Status: Emergency Diagnostic Findings * Left Main has no disease. * Proximal Left Anterior Descending: severe 90% stenosis, ELIANE: 3 flow. * Proximal Left Anterior Descending to Mid Left Anterior Descending: obstructive 70% stenosis, ELIANE: 3 flow. * Distal Right Coronary Artery: total occlusion, chronic total occlusion, ELIANE: 0 flow. * Proximal Circumflex: mild 40% stenosis, ELIANE: 3 flow. * First Obtuse Marginal Branch Segment: obstructive 60% stenosis, ELIANE: 3 flow. * Coronary angiography shows right dominance. * Indication: Complete heart block/sick sinus syndrome/atrial fibrillation /Recurrent syncope witnessedPatient was started on dopamine given atropine and externally paced in the ER. She was taken to the Street Light Inspector from right internal jugular 6 Frisian sheath was placed. Temporary pacemaker was floated and set at the rate of 70 with output of 10. Good capture was confirmed. Dopamine drip was titrated off. Conclusions 1. There is total occlusion coronary artery disease with three vessel disease. 2. Patient has very torturous aorta. With somewhat difficulty through radial approach left heart cath was performed. Due to eccentric takeoff or catheter was difficult to engage despite of using JL diagnostic, Nipomo and CLS guide multiple views were obtained.#1 Left main appeared to be without significant stenosis #2 Ostial LAD appeared to be 80 to 90% stenotic, mid LAD has 60 to 70% eccentric in-stent restenosis, diagonal branch does not have significant disease #3 Due to difficulty in engagement ostial circumflex appeared to be hazy however cannot rule out streaming artifact, we also tried to take picture from the right common femoral approach despite of that we were not able to obtain good picture of circumflex ostium in few view it appeared to me that that may not be a significant lesion and it is just an angle or calcification may need IFR or IVUS, due to high LVEDP and high contrast due to difficult anatomy with a planning to bring patient back for IVUS and decide regarding CABG versus PCI, obtuse marginal has moderate 60% proximal stenosis #4 RCA is chronically occluded in the midsegmentLVEDP was recorded at 39 mmHg LV gram was not performed at difficulty in advancing the catheter and in order to avoid the high dose of contrast. Echocardiogram will be obtained There was no gradient across the aortic valve was noted. Recommendations * 1-Return to inpatient for close monitoring and routine cath care 2-Risk factor modification for secondary prevention 3-Statin and aspirin 81 mg life-long, if tolerated 4-plan to diurese patient to reduce LVEDP and perform IVUS to assess ostial circumflex lesion if present may consider CABG otherwise PCI of ostial LAD will be considered. Permanent pacemaker for sick sinus syndrome. 6-Follow up with Dr. Eli in four weeks and your primary care in 10 days . Pressures Phase:Rest AO : 148 / 70 ( 99 ) @ 6:38:20 PM 148 / 69 ( 97 ) @ 6:38:20 PM 115 / 78 ( 96 ) @ 6:38:20 PM 118 / 81 ( 98 ) @ 6:38:20 PM 152 / 77 ( 109 ) @ 6:38:20 PM 128 / 91 ( 110 ) @ 6:38:20 PM LV : 150 / 1 / 24 @ 6:38:20 PM 150 / 2 / 24 @ 6:38:20 PM 152 / 27 / 33 @ 6:38:20 PM Valves Phase:DefaultPhase AV : 8.0 @ 11:38:20 PM AV Mean Gradient: 9.0 @ 11:38:20 PM Clinical Evaluation EBL: 5mL-10mL Procedural Details Admit Source: Emergency department. Pre-Procedure Time Out. Identified patient by full name and date of as verbalized by the patient/guarantor. Does the consent match the physician's order: N/A Emergent. Accurate & Complete Informed Consent: N/A Emergent. Inpatient/Outpatient History & Physical on Chart: N/A Emergent. If H&P is completed, is and addenduem needed: N/A Emergent; If yes, is the addendum complete: N/A Emergent. Visualize and Verify Site with Patient/Guarantor: N/A. Relevant Radiology Images available: N/A. The risks, benefits, and alternatives of sedation and/or procedure were discussed by physician. The patient family agrees to continue. Procedure started. Street Light Inspector Indications: Cardiac Arrhythmia. Cardiovascular Instability: Yes, if yes, Hemodynamic Instability. Correct patient, site and procedure confirmed by cath team. IV Site on Arrival: 20 gauge in the left anticubital. IV Site on Arrival: 20 gauge in the right anticubital. IV Site on Arrival: 20 gauge in the left hand. IV Site on Arrival: Saline Lock. IV Fluids: 0.9% NaCl at KVO. 50 mL infused prior to catheter builder. right subclavian was prepped with chloroprep then draped in the usual sterile fashion. bilateral groins was prepped with chloroprep then draped in the usual sterile fashion. Baseline sample Acquired. HR: 0 BPM. Physician notified. Patient arrived to catheter builder on a ventilator and will be managed by respiratiory. Physician arrived. Physician scrubbed in. Immediate Pre-Procedure Time Out. Correct Patient: N/A Emergent; Informed Consent not obtained due to time critical life threat; Correct Procedure: N/A Emergent; Informed Consent not obtained due to time critical life threat; Correct Site: N/A Emergent; Informed Consent not obtained due to time critical life threat; Correct Patient Position: N/A Emergent; Informed Consent not obtained due to time critical life threat; Correct Supplies: N/A Emergent; Informed Consent not obtained due to time critical life threat; Dried Flammable Prep: N/A Emergent; Informed Consent not obtained due to time critical life threat; Blood Products Available: N/A;. Pt being externally paced 50output and 70BPM. Lidocaine 1% infiltrated to the right subclavian. Propofol infusing at 5mcg/kg/min from ED. US guided access with micropuncture to R subclavian. TPM inserted. TPM settings: Async, Output 10, 70 BPM. Lidocaine 1% infiltrated to the right radial. right radial was prepped with chloroprep then draped in the usual sterile fashion. Arterial access obtained. A 5 lithuanian TIG catheter in over wire. EDP Sample taken: LV 150/1,24; HR: 122 BPM; SpO2: 100%. Pullback taken: LV 150/2,24; AO 148/70(99); Mean: 9mmHg, Peak to Peak: 8mmHg, SEP: 27sec/min; HR: 118 BPM; SpO2: 100%. Catheter advanced across the LV. Catheter redirected to the RCA. Multiple views taken of right coronary artery. Catheter redirected to the LCA. Multiple views taken of left coronary artery. Catheter removed over the exchange wire. 6 lithuanian XB 3SH guide catheter was inserted over the wire. ACT drawn. Results 202 seconds. Therapeutic limits - pre-heparin administration 90-150 seconds and monitoring heparin during a vascular procedure >250 seconds. Cine run performed of [facility]. Physician review of cine films. Catheter removed over the exchange wire. A 5 lithuanian Angled Pig catheter in over wire. EDP Sample taken: LV 152/27,33; HR: 110 BPM; SpO2: 100%. Catheter out. Lidocaine 1% infiltrated to the right groin. Arterial access obtained with micropuncture set. A 5 lithuanian JL4 catheter in over standard wire. Multiple views taken of left coronary artery. Catheter removed over the standard wire. 6 lithuanian XB 3SH guide catheter was inserted over the wire. Catheter removed over the standard wire. A 5 lithuanian JL4.5 catheter in over wire. Multiple views taken of left coronary artery. Dopamine titrated to 12.5mcg/kg/min. Catheter removed over the standard wire. Physician scrubbed out. A Suture was successful obtaining hemostatsis at the Right Subclavian vein insertion site. A TR Band was successful obtaining hemostatsis at the Right Radial artery insertion site. A Suture was successful obtaining hemostatsis at the Right Femoral artery insertion site. Sheath(s) sutured into position with 2-0 silk and sterile 4x4's and Op-site applied over the site. No oozing or signs and symptoms of hematoma noted. Arterial sheath flushed and connected to tranducer and pressure bag with heparinized saline. Post Procedure: Pulses reassessed and unchanged. No VTE prophylaxis required. Medication's Wasted: Heparin = 4000 u. Medication's Wasted: Other = Lasix 40 mg. Total IV fluids: 70 mL. Post-op diagnosis: Complete HB, Significant Ostial LAD Stenosis. Complications: none. Estimated blood loss: 5mL-10mL. Responsiveness - Normal response to verbal stimuli; alert and oriented, PERRLA. Airway - Unaffected, no intervention required; spontaneous ventilation. Circulation: W/N/L, pulses unchanged. Nausea/Vomiting: No. Procedure completed. Patient transferred by bed to ICU. Vital chart was stopped. Access Site Site: Right Subclavian vein Sheath Size: 6 Fr Hemostasis Method: Suture Hemostasis Success: Successful Site: Right Radial artery Sheath Size: 6 Fr Hemostasis Method: TR Band Hemostasis Success: Successful Site: Right Femoral artery Sheath Size: 6 Fr Hemostasis Method: Suture Hemostasis Success: Successful Procedure Medications Start: 10:23 PM Stop: 10:23 PM Medication: Dopamine 400mg/250 mL Amount: 20 mcg/kg/min Route: I.V. drip Start: 10:48 PM Stop: 10:48 PM Medication: Heparin Amount: 5000 units Route: I.V. Start: 11:33 PM Stop: 11:33 PM Medication: Lasix (furosemide) Amount: 60 mg Route: I.V. I, the attending physician, have reviewed and verified all procedure medications. Yes, all medications given per verbal order Report Signatures Finalized by Elias Chi MD on 06/01/2024 12:13 AM
[2024-05-31] MEDS: etomidate 2 mg/mL INJ SDV 10 mL 20 MG IVP (21:47)
[2024-05-31] MEDS: vecuronium 10 mg SDV IVP (21:47)
[2024-05-31] MEDS: propofol 1,000 MG/100 ML INJ 2.53 MG IV (21:53)
[2024-05-31 22:06] LABS: Troponin 5 2HR Delta -0.8 ABS# (0-10)
[2024-05-31 22:07] LABS: Troponin 5 2HR 160.2 ng/L (0-10)
--- NOTE | 2024-05-31 22:15 | PC.NURSE ---
Addendum entered by Iman Heredia RN 05/31/24 23:06: 2100: 1 mg atropine given IVP 2109: 1 mg atropine given IVP Original Note: At 2099 CT scan called ER UC stating pt was rigid and not right. RN went directly to CT. pt noted to be unresponsive to sternal rub. thready pulse palpated by RN and CT. pt brought back to ed room immediately, MD notified immediately and in room. Vitals are as follows: 2049: 92 BPM; 140/68; 96% SpO2 on Room Air; 19 RR - this is prior to CT departure. pt aox4 prior to departure. EKG completed and handed to provider at bedside. 2099: 27 BPM; 90/54; 97% SpO2 on 7L NC - upon returning to room from CT 2114: MD verbal order for dopamine to be started at 10 mcg/kg/min. MD verbal order for magnesium 2gm in 50 mL to run at 50 mL/hr. Began pacing pt externally at 50 mA, 70 BPM. MD verbal order to increase dopamine to 15 mcg/kg/min. 2119: Vitals: 70 BPM; 102/60; 97% on 7 L NC MD verbal to increase dopamine to 20 mcg/kg/min 2124: Pt noted to become tachycardic in 140s. MD notified and at bedside. MD verbal to stop pacing. Pacing stopped and monitor on. EKG completed and handed to provider at bedside. 2129: Vitals: 103 BPM; 81% on 7 L NC; 132/61. MD verbal order to decrease dopamine to 15 mcg/kg/min. MD order to prepare for intubation. RT notified, suction set up. 2136: 20 G PIV placed, R FA. and RT at bedside. 2142: MD verbal to increase dopamine to 20 mcg/kg/min. Vitals: HR 92 BPM; 140/68; 96% ambu bag ventilations. 2144: vitals: 43 BPM; 91% ambu bag ventilations; 112/43 2146: 20 etomidate IVP 10 vecuronium IVP 2148: ET tube 23 at teeth, auscultated and confirmed by CXR 2149: vitals: 70 BPM paced; 97% mechanical ventilation; 115/50 Propofol IV started per protocol. Magnesium completed. Dopamine continued at 20 mcg/kg/min. 2153: CCL arrival. Vitals: 70 BPM being paced externally at 50 mA; 115/50; 94% mechanical ventilation Security escorted to ICU WR.
--- NOTE | 2024-05-31 23:50 | PM.HP ---
Providers/Chief Complaint Primary Care Provider: ZENIA Morales Chief Complaint: weakness History of Present Illness Analia Gotti is a 83 year old female with established history of coronary disease diabetes, sleep apnea, uses oxygen at nighttime only, not compliant with CPAP grade 1 diastolic dysfunction mildly decreased left ventricular systolic function, paroxysmal A-fib not on anticoagulation due to low burden of A-fib chronic anemia, presented with chief complaint of generalized weakness and syncopal event. EMS was called by her , is not able to drive. As per the EMS her symptoms did not worsen enroute to the hospital there was no focal deficits, workup in the ER revealed sick sinus syndrome concern it showed A-fib, heart rate was fluctuating between low 20s to highest 150s, initially [facility] was called when returned from head CT scan, however it was canceled patient was able to follow commands, she did not lose pulse with bradycardia, initially she was paced for couple of minutes which was turned off when she went into A-fib RVR heart rate 110-140s, at that point she was on dopamine drip 20, which was titrated down to 15, patient had to be intubated because she was getting droowsy with hypoxic on 15 L nonrebreather mask, she was intubated by the ER physician. Dr. Chi was consulted who took the patient to the [facility] for angiogram and placed transvenous pacemaker. Patient had high left ventricular end-diastolic pressure she was given 60 mg IV Lasix, concern for ostial LAD left circumflex disease, no intervention done as patient will need euvolemic state first, as per the doctor, she would not tolerate PCI at this point. Patient transferred to the ICU Review of Systems General: Reports: ROS unobtainable due to endotracheal tube Medications/Allergies Home Medications ?Medication ?Instructions ?Recorded ?Confirmed ?Last Taken ?Type allopurinol 300 mg tablet 300 mg PO DAILY 11/16/19 05/26/24 05/10/22 History aspirin 81 mg chewable tablet 81 mg PO DAILY 11/16/19 05/26/24 05/11/22 History glipizide 10 mg tablet, extended 10 mg PO BID 11/16/19 05/26/24 05/11/22 History release 24 hr metformin 500 mg tablet,extended 1,000 mg PO BID 11/16/19 05/26/24 05/11/22 History release 24 hr multivitamin 1 tab PO DAILY 11/16/19 05/26/24 05/11/22 History gabapentin 100 mg capsule 100 mg PO DAILY 01/18/23 05/26/24 Unknown History carvedilol 3.125 mg tablet 6.25 mg (2 x 3.125 mg) PO BID 30 04/11/24 05/26/24 Unknown Rx days #120 tabs clopidogrel 75 mg tablet 75 mg PO DAILY 05/08/24 05/26/24 Unknown History Cranberry Extract PO 05/26/24 05/26/24 Unknown History amoxicillin 500 mg-potassium 1 tab PO Q12H 05/26/24 05/26/24 Unknown History clavulanate 125 mg tablet atorvastatin 10 mg tablet (Lipitor) 10 mg PO DAILY 05/26/24 05/26/24 Unknown History furosemide 40 mg tablet (Lasix) 40 mg PO BID PRN 05/26/24 05/26/24 Unknown History olmesartan 20 mg tablet (Benicar) 20 mg PO DAILY 05/26/24 05/26/24 Unknown History pantoprazole 40 mg tablet,delayed 40 mg PO DAILY 05/26/24 05/26/24 Unknown History release potassium chloride 20 mEq 20 meq PO DAILY PRN 05/26/24 05/26/24 Unknown History tablet,extended release Allergies Allergy/AdvReac Type Severity Reaction Status Date / Time metformin Allergy ADR/ALGY-Pa Verified 05/31/24 19:39 leness Sulfa (Sulfonamide Allergy ALGY-Hives Verified 05/31/24 19:39 Antibiotics) PFSH Acute PFSH: Medical History CHF (NYHA class III, ACC/AHA stage C) Sleep apnea Coronary artery disease Hypertension Hypercholesterolemia Diabetes Surgical History History of PTCA History of tonsillectomy H/O: hysterectomy Hx of cholecystectomy Family History Father Hypertension Social History Smoking and tobacco/nicotine status: former use of tobacco/nicotine Alcohol intake: never Vitals/I&O/Wt Last Vital Signs Temp 97.6 F 05/31/24 19:32 Pulse 70 05/31/24 21:54 Resp 14 05/31/24 22:59 BP 115/50 05/31/24 21:54 Pulse Ox 94 05/31/24 21:54 O2 Del Method Mechanical Ventilation 05/31/24 21:54 O2 Flow Rate 7 05/31/24 21:30 FiO2 100 05/31/24 22:59 05/31/24 05/31/24 06/01/24 14:59 22:59 06:59 Intake Total 574.785 / 574.785 Balance 574.785 / 574.785 Weight last 48 hrs Weight 84.368 kg Physical Exam Narrative: Patient laying supine Intubated and sedated Transvenous pacemaker in place Femoral sheath and groin Jimenez catheter in place Hemodynamically stable Sign of fluid overload present Hemodynamically stable at this point Neuroexam limited Distended abdomen Saturating well S1, S2, sinus rhythm Data 05/31/24 20:01 05/31/24 20:01 A&P Assessment and plan (1) Coronary artery disease: (2) Afib: (3) Bradycardia: (4) Diabetes: (5) Sleep apnea: (6) Syncope: (7) Sick sinus syndrome: (8) Acute exacerbation of CHF (congestive heart failure): (9) CHF (NYHA class III, ACC/AHA stage C): (10) Chronic kidney disease: (11) Hypomagnesemia: (12) Hyperkalemia: Plan Syncope Sick sinus syndrome concern Transvenous pacemaker in place, will need permanent pacemaker eventually Angiogram done by Dr. Chi showed concerning coronary disease in left circumflex and ostial LAD, patient needs to be diuresed first before any intervention as per cardiology 60 mg IV Lasix administered in [facility] Dopamine drip to be weaned off overnight Moderate reduced EF with diastolic dysfunction acute decompensation Continue aggressive diuresis Non-STEMI: Status post angiogram Start heparin drip after the sheath is pulled Therapeutic aspirin was requested in the ER Respiratory failure requiring mechanical ventilation Respiratory failure related to CHF exacerbation Patient intubated 05/31 by the ER physician Patient likely will stay intubated until permanent pacemaker placement and elective PCI Currently sedated with propofol GI prophylaxis Protonix added Hypomagnesemia: Magnesium replenished Chronic kidney disease: Creatinine seems around baseline, hyperkalemia noted, repeat BMP, anticipate improvement with diuresis, calcium gluconate will be administered Chronic anemia: No acute decompensation, macrocytic anemia, check B12 level N.p.o. GI prophylaxis Protonix Full code DVT prophylaxis covered with heparin drip PDMP PDMP Reviewed: Not Reviewed Attestations Medical Necessity Statement*: More than 2 midnights anticipated Coding Level of Care Code Critical Care >/= 30 minutes Critical care time (in minutes): 30 The high probability of a clinically significant, sudden or life threatening deterioration, as referenced in this documentation, required my full and direct attention, intervention and personal management. The critical care time shown is in addition to time spent performing any reported separately billable procedures and includes the following: [x] Data and vital sign review and interpretation [x] Patient assessment, examination and intervention [x] Medication orders and management [x] Patient/Family updates as able [x] Care Coordination and Documentation. Diagnoses Coronary artery disease I25.10 Afib I48.91 Bradycardia R00.1 Diabetes E11.9 Sleep apnea G47.30 Syncope R55 Sick sinus syndrome I49.5 Acute exacerbation of CHF (congestive heart failure) I50.9 CHF (NYHA class III, ACC/AHA stage C) I50.9 Chronic kidney disease N18.9 Hypomagnesemia E83.42 Hyperkalemia E87.5
[2024-06-01] VITALS (18 sets, daily range): BP systolic 86–165; BP diastolic 35–87; PULSE 31–137; RESP 14; O2SAT 93–100
--- NOTE | 2024-06-01 00:28 | XRR_ITS ---
PROCEDURE INFORMATION: Exam: XR Chest Exam date and time: 06/01/2024 1:09 AM Age: 83 years old Clinical indication: Device placement; Other: Og tube; Prior surgery; Surgery date: Post-operative (0-2 days); Surgery type: Pacer; Additional info: Og placement TECHNIQUE: Imaging protocol: Radiologic exam of the chest. Views: 1 view. COMPARISON: CR (CHEST, ) 05/31/2024 9:50 PM FINDINGS: Tubes, catheters and devices: Endotracheal tube terminates approximately 2.8 cm above the steffen. Gastric tube courses over the area of the stomach and terminates below the field of view. Right IJ approach central venous catheter terminates projects over the expected area of the right atrium. Poorly visualized pacer leads present. Lungs: Probable left basilar airspace opacity. Pleural spaces: Questionable left pleural effusion. No evidence of pneumothorax. Heart/Mediastinum: Cardiomediastinal silhouette is midline and stable in size. Bones/joints: Osseous structures are unchanged. XR/XR chest 1V portable [id number] IMPRESSION: 1. Gastric tube courses over the area of the stomach and terminates below the field of view. 2. Probable left basilar airspace opacity. 3. Questionable left pleural effusion.
[2024-06-01 01:18] LABS: Glucose Point of Care 297 mg/dL (70-110)
[2024-06-01] MEDS: fentaNYL 1,000 MCG/100 ML BAG 2.5 MCG IV (02:12)
[2024-06-01 02:34] LABS: Basophils # 0.1 10^3/uL (0.0-0.1); Basophils % 0.4 %; Eosinophils % 0.1 %; Hematocrit 24.9 % (36-47); Lymphocytes # 0.5 10^3/uL (0.8-4.8); Lymphocytes % 4.1 %; Mean Corpuscular HGB Conc 32.9 g/dL (30-55); Mean Corpuscular Hemoglobin 33.1 pg (27-33); Mean Corpuscular Volume 100.4 fl (85-98); Mean Platelet Volume 11.6 fL (7.4-10.4); Monocytes # 0.6 10^3/uL (0.2-0.9); Neutrophils # 10.69 10^3/uL (1.8-7.7); Nucleated Red Blood Cells % 0 %; Platelet Count 230 10^3/cmm (157-399); Red Blood Count 2.48 10^6/uL (3.85-5.65); Red Cell Distribution Width 14.7 % (12.1-15.1); White Blood Count 11.88 10^3/uL (3.29-11.43)
[2024-06-01 02:57] LABS: Anion Gap 16.8 (5-19); Blood Urea Nitrogen 40 mg/dL (8-23); Calcium 7.9 mg/dL (8.5-10.5); Carbon Dioxide 18 mmol/L (22-29); Chloride 102 mmol/L (98-107); Glucose 263 mg/dL (65-115); Osmolality Calculated 293 mOsm/kg (285-295); Phosphorus 4.2 mg/dL (2.5-4.5); Potassium 4.8 mmol/L (3.5-5.1); Sodium 132 mmol/L (136-145)
[2024-06-01 03:05] LABS: Thyroid Stimulating Hormone 1.39 uIU/mL (0.27-4.20)
[2024-06-01 03:13] LABS: ABG PH Result 7.35 (7.35-7.45); Base Excess ABG -5.9 mmol/L (-2.0-2.0); Blood Gas Operator Identificat SAM; Blood Gas Sample Site Femoral, right; Blood Gas Sample Type Arterial; Blood Gas Tidal Volume 0.45; HCO3 ABG 19.2 mmol/L (22-26); Oxygen Device VENT; PO2 FiO2 Ratio Arterial Blood 218
--- NOTE | 2024-06-01 03:20 | PM.TDS ---
Transfer Summary Providers Date of Admission: 06/01/24 00:08 Date of Discharge/Transfer: 06/01/24 Attending Provider at Admission: Elias Chi MD Attending Provider at Transfer: Elias Chi MD Primary Care Provider: ZENIA Morales Transfer Plans: Anticipated date of transfer: 06/01/24. Diagnoses at Discharge Discharge Diagnosis (1) Coronary artery disease: Status: Acute (2) Afib: Status: Acute (3) Bradycardia: Status: Acute (4) Diabetes: Status: Acute (5) Sleep apnea: Status: Acute (6) Syncope: Status: Acute (7) Sick sinus syndrome: Status: Acute (8) Acute exacerbation of CHF (congestive heart failure): Status: Acute (9) CHF (NYHA class III, ACC/AHA stage C): Status: Acute (10) Chronic kidney disease: Status: Chronic (11) Hypomagnesemia: Status: Acute (12) Hyperkalemia: Status: Acute Reason for Visit Reason for Visit weakness Hospital Course Hospital Course 83-year-old female with history of established coronary disease sleep apnea, EF 40% grade 1 diastolic dysfunction, chronic kidney disease, anemia presented for syncopal event. In the ER workup consistent with with sick sinus syndrome lowest heart rate 20s when she was given atropine, dopamine and transcutaneous pacing, after a few minutes her heart rate went up to 150s, dopamine was titrated off, pacemaker turned off, cardiology was consulted troponin 160, patient had another syncopal event with hypoxia in the ER, hence she was intubated by the ER physician, household worker took her to the Natural Science Curator, coronary angiogram consistent with ostial significant LAD disease, ostial left circumflex in few views appeared to be hazy which could be calcification or true lesion may require IVUS which would can be planned once left ventricular end-diastolic pressure improves as in case of calcified lesion patient may require atherectomy given ostial LAD involvement PCI can be complex therefore need to optimize patient condition Diagnostic Cath Status: Emergency Diagnostic Findings * Left Main has no disease. * Proximal Left Anterior Descending: severe 90% stenosis, ELIANE: 3 flow. * Proximal Left Anterior Descending to Mid Left Anterior Descending: obstructive 70% stenosis, ELIANE: 3 flow. * Distal Right Coronary Artery: total occlusion, chronic total occlusion, EILANE: 0 flow. * Proximal Circumflex: mild 40% stenosis, ELIANE: 3 flow. * First Obtuse Marginal Branch Segment: obstructive 60% stenosis, ELIANE: 3 flow. * Coronary angiography shows right dominance Right IJ transvenous pacemaker was placed by the household worker, decision was made to diurese her with 60 mg of IV Lasix, keep her intubated on propofol and fentanyl, dopamine is running at 5, she is hemodynamically stable, patient may need staged angiogram under IVUS once euvolemic and she will need a permanent pacemaker [facility] boom supervisor Dr. Cortez has graciously accepted the patient. Patient's is at home, stating that he is not able to drive at all but accepting the transfer and intervention needed at this point CBC 11.8, hemoglobin 8.2, platelet count 230 INR 1.03 ABG 7.3 535/218 on 100% FiO2 ventilator, FiO2 to be weaned down Sodium 132 potassium 4.8, bicarb 18 creatinine 1.5 Magnesium 1.6 which was replenished Troponin 161, second hour troponin 160.2, 6-hour troponin 157 UA unremarkable TSH 1.3 Chest x-ray left basilar airspace opacity, endotracheal tube 2.8 cm above steffen Physical Exam Narrative: Patient intubated and sedated Urinary Catheter Management: Jimenez: Cath Placed During This Visit: yes Urinary Catheter Date of Insertion: 06/01/24 Urinary Catheter Time of Insertion: 00:34 TS Data Studies Completed and Pending Pending at discharge Category Date Time Status B12 [Vitamin B12] Routine Lab 06/01/24 02:03 Results Magnesium AM LABS Lab 06/02/24 04:00 Ordered Prothrombin Time INR Routine Lab 06/01/24 06:00 Ordered TSH [Thyroid Stimulating Hormone] Routine Lab 06/01/24 02:03 Results CV. echo complete* [id number] Routine Ultrasound 06/01/24 00:08 Ordered Completed Studies During Hospitalization Category Date Time Status CT head wo con* [id number] Stat Cat Scan 05/31/24 19:41 Completed STATE COMPTROLLER request for service Stat Exams 05/31/24 21:33 Completed XR chest 1V portable [id number] Stat Exams 05/31/24 19:38 Completed XR chest 1V portable [id number] Stat Exams 06/01/24 00:28 Completed Laboratory Last Values WBC 11.88 10^3/uL (3.29-11.43) H 06/01/24 02:03 RBC 2.48 10^6/uL (3.85-5.65) L 06/01/24 02:03 Hgb 8.20 g/dL (11.27-16.99) L 06/01/24 02:03 Hct 24.9 % (36-47) L 06/01/24 02:03 MCV 100.4 fl (85-98) H 06/01/24 02:03 MCH 33.1 pg (27-33) H 06/01/24 02:03 MCHC 32.9 g/dL (30-55) 06/01/24 02:03 RDW 14.7 % (12.1-15.1) 06/01/24 02:03 Plt Count 230 10^3/cmm (157-399) 06/01/24 02:03 MPV 11.6 fL (7.4-10.4) H 06/01/24 02:03 Neut % (Auto) 90.0 % 06/01/24 02:03 Lymph % (Auto) 4.1 % 06/01/24 02:03 [place] % (Auto) 5.0 % 06/01/24 02:03 Eos % (Auto) 0.1 % 06/01/24 02:03 Baso % (Auto) 0.4 % 06/01/24 02:03 Neut # (Auto) 10.69 10^3/uL (1.8-7.7) H 06/01/24 02:03 Lymph # (Auto) 0.5 10^3/uL (0.8-4.8) L 06/01/24 02:03 [place] # (Auto) 0.6 10^3/uL (0.2-0.9) 06/01/24 02:03 Eos # (Auto) 0.0 10^3/uL (0.0-0.8) 06/01/24 02:03 Baso # (Auto) 0.1 10^3/uL (0.0-0.1) 06/01/24 02:03 Nucleated RBC % (auto) 0 % 06/01/24 02:03 Nucleated RBCs # 0.0 /100WBC 06/01/24 02:03 PT 14.20 SECONDS (12.1-14.9) 05/31/24 20:01 INR 1.03 (0.8-1.2) 05/31/24 20:01 Specimen Type Arterial 06/01/24 03:06 Sample Site Femoral, right 06/01/24 03:06 ABG pH 7.35 (7.35-7.45) 06/01/24 03:06 ABG pCO2 35.0 mmHg (35-45) 06/01/24 03:06 ABG pO2 218.0 mmHg (80.0-100.0) H 06/01/24 03:06 ABG PO2/FiO2 Ratio 218 06/01/24 03:06 ABG HCO3 19.2 mmol/L (22-26) L 06/01/24 03:06 ABG Base Excess -5.9 mmol/L (-2.0-2.0) L 06/01/24 03:06 Magno Test N/a 06/01/24 03:06 Hematocrit 26.0 % (37-47) L 06/01/24 03:06 O2 Delivery Device Vent 06/01/24 03:06 FiO2 100.0 % 06/01/24 03:06 Tidal Volume 0.45 06/01/24 03:06 PEEP 5.0 cmH20 06/01/24 03:06 Commercial Real Estate Paralegal ID Jeison 06/01/24 03:06 Sodium 132 mmol/L (136-145) L 06/01/24 02:03 Potassium 4.8 mmol/L (3.5-5.1) 06/01/24 02:03 Chloride 102 mmol/L (98-107) 06/01/24 02:03 Carbon Dioxide 18 mmol/L (22-29) L 06/01/24 02:03 Anion Gap 16.8 (5-19) 06/01/24 02:03 BUN 40 mg/dL (8-23) H 06/01/24 02:03 Creatinine 1.5 mg/dL (0.5-0.9) H 06/01/24 02:03 GFR Calculation Not Reportable 06/01/24 02:03 Glucose 263 mg/dL (65-115) H 06/01/24 02:03 POC Glucose 297 mg/dL (70-110) H 06/01/24 01:15 Calculated Osmolality 293 mOsm/kg (285-295) 06/01/24 02:03 Calcium 7.9 mg/dL (8.5-10.5) L 06/01/24 02:03 Phosphorus 4.2 mg/dL (2.5-4.5) 06/01/24 02:03 Magnesium 1.6 mg/dL (1.7-2.3) L 05/31/24 20:01 Total Bilirubin 0.3 mg/dL (0.15-1.2) 05/31/24 20:01 AST 57 U/L (0-32) H 05/31/24 20:01 ALT 28 U/L (0-33) 05/31/24 20:01 Alkaline Phosphatase 79 U/L (35-105) 05/31/24 20:01 Troponin T Baseline 161 ng/L (0-10) H* 05/31/24 20:01 Troponin T 120 Minute 160.2 ng/L (0-10) H 05/31/24 21:40 Delta Troponin T -0.8 ABS# (0-10) L 05/31/24 21:40 Troponin T Hi Sens 6Hr 157.0 ng/L (0-10) H 06/01/24 02:03 Troponin T Hi Sens 6Hr Delta -4.0 ng/L (0-12) L 06/01/24 02:03 Total Protein 5.8 g/dL (6.6-8.7) L 05/31/24 20:01 Albumin 2.9 g/dL (3.5-5.2) L 05/31/24 20:01 Globulin 2.9 g/dL (1.3-4.6) 05/31/24 20:01 Lipase 15 U/L (13-60) 05/31/24 20:01 TSH 1.39 uIU/mL (0.27-4.20) 06/01/24 02:03 Urine Color Yellow (Yellow) 05/31/24 19:50 Urine Appearance Clear (CLEAR) 05/31/24 19:50 Urine pH 5.0 (5-7) 05/31/24 19:50 Ur Specific [place] 1.012 (1.005-1.030) 05/31/24 19:50 Urine Protein 2+ (Negative) A 05/31/24 19:50 Urine Glucose (UA) Negative (Normal) 05/31/24 19:50 Urine Ketones Negative (Negative) 05/31/24 19:50 Urine Blood Negative (Negative) 05/31/24 19:50 Urine Nitrate Negative (Negative) 05/31/24 19:50 Urine Bilirubin Negative (Negative) 05/31/24 19:50 Urine Urobilinogen 0.2 mg/dL (Negative) 05/31/24 19:50 Ur Leukocyte Esterase Negative (Negative) 05/31/24 19:50 Urine RBC 0-2 /hpf (0-2) 05/31/24 19:50 Urine WBC 0-5 /hpf (0-5) 05/31/24 19:50 Ur Squamous Epith Cells 0-5 /hpf (0-5) 05/31/24 19:50 Amorphous Sediment Not Reportable 05/31/24 19:50 Urine Bacteria None seen /hpf (NONE) 05/31/24 19:50 Hyaline Casts 12.41 /lpf 05/31/24 19:[address] 05/31/24 19:41 IMPRESSION: No acute intracranial process. Senescent changes. If there is continued clinical concern for an acute ischemic event then follow up with a brain MRI examination. Chest X-Ray 06/01/24 00:28 IMPRESSION: 1. Gastric tube courses over the area of the stomach and terminates below the field of view. 2. Probable left basilar airspace opacity. 3. Questionable left pleural effusion. Recent Clincial Data Last Vital Signs Temp 97.6 F 05/31/24 19:32 Pulse 106 H 06/01/24 02:45 Resp 14 06/01/24 02:45 BP 155/68 06/01/24 02:45 Pulse Ox 99 06/01/24 02:45 O2 Del Method Mechanical Ventilation 06/01/24 02:45 O2 Flow Rate 7 05/31/24 21:30 FiO2 100 06/01/24 02:45 Vital Signs Temp Pulse Resp BP Pulse Ox O2 Del Method O2 Flow Rate 06/01/24 02:45 106 H 14 155/68 99 Mechanical Ventilation 06/01/24 02:30 105 H 14 153/68 100 Mechanical Ventilation 06/01/24 02:15 100 14 135/62 100 Mechanical Ventilation 06/01/24 02:00 111 H 14 158/73 100 Mechanical Ventilation 06/01/24 02:00 06/01/24 01:45 127 H 149/87 100 Mechanical Ventilation 06/01/24 01:30 134 H 151/72 99 Mechanical Ventilation 06/01/24 01:15 135 H 14 165/75 100 Mechanical Ventilation 06/01/24 01:00 31 L 14 86/35 93 Mechanical Ventilation 06/01/24 00:45 133 H 14 146/84 100 Mechanical Ventilation 06/01/24 00:30 137 H 14 146/84 99 Mechanical Ventilation 06/01/24 00:24 Mechanical Ventilation 06/01/24 00:15 136 H 14 Mechanical Ventilation 06/01/24 00:13 14 99 06/01/24 00:12 70 115/50 97 06/01/24 00:02 117 H 14 05/31/24 22:59 14 05/31/24 21:54 70 115/50 94 Mechanical Ventilation 05/31/24 21:50 70 115/50 97 Mechanical Ventilation 05/31/24 21:45 45 L 112/43 91 Ambu-Bag 05/31/24 21:43 92 140/68 96 Ambu-Bag 05/31/24 21:30 103 H 132/61 81 L Nasal Cannula 7 05/31/24 21:30 104 H 132/61 90 Nasal Cannula 05/31/24 21:20 70 102/60 97 Nasal Cannula 7 05/31/24 21:00 27 L 90/54 97 Nasal Cannula 7 05/31/24 20:45 90 140/68 96 Room Air 05/31/24 20:30 88 129/61 93 Room Air 05/31/24 20:03 88 127/55 92 Room Air 05/31/24 19:32 97.6 F 89 16 131/61 94 Room Air FiO2 06/01/24 02:45 100 06/01/24 02:30 100 06/01/24 02:15 100 06/01/24 02:00 100 06/01/24 02:00 100 06/01/24 01:45 06/01/24 01:30 06/01/24 01:15 06/01/24 01:00 100 06/01/24 00:45 100 06/01/24 00:30 100 06/01/24 00:24 06/01/24 00:15 100 06/01/24 00:13 100 06/01/24 00:12 06/01/24 00:02 05/31/24 22:59 100 05/31/24 21:54 05/31/24 21:50 05/31/24 21:45 05/31/24 21:43 05/31/24 21:30 05/31/24 21:30 05/31/24 21:20 05/31/24 21:00 05/31/24 20:45 05/31/24 20:30 05/31/24 20:03 05/31/24 19:32 Intake & Output/Weight 05/29/24 05/30/24 05/31/24 06/01/24 06:59 06:59 06:59 06:59 Intake Total 807.100 / 807.100 Balance 807.100 / 807.100 Weight 85 kg Vitals Last Vital Signs Temp 97.6 F 05/31/24 19:32 Pulse 106 H 06/01/24 02:45 Resp 14 06/01/24 02:45 BP 155/68 06/01/24 02:45 Pulse Ox 99 06/01/24 02:45 O2 Del Method Mechanical Ventilation 06/01/24 02:45 O2 Flow Rate 7 05/31/24 21:30 FiO2 100 06/01/24 02:45 TS Medications Medications Acetaminophen (Acetaminophen 325 Mg Tablet) 650 mg PO Q6H PRN PRN Reason: MILD PAIN Al Hydrox/Mg Hydrox/Simethicone (Lway-Opi-Xbspmvmel-Ayana 30 Ml Udc) 30 ml PO Q15M PRN PRN Reason: INDIGESTION Albuterol/Ipratropium (Ipratropium-Albuterol 3 Ml Neb) 3 ml INHALATION Q6H PRN PRN Reason: SHORTNESS OF BREATH Allopurinol (Allopurinol 300 Mg Tablet) 300 mg PO DAILY [facility] Aspirin (Aspirin 81 Mg Chew Tablet) 81 mg PO DAILY [facility] Atorvastatin Calcium (Atorvastatin 40 Mg Tablet) 80 mg PO DAILY [facility] Atropine Sulfate (Atropine 1 Mg/Ml Sdv 1 Ml) 0.5 mg IVP PRN PRN PRN Reason: Symptomatic bradycardia Fentanyl (Fentanyl 50 Mcg/Ml Inj 2ml) 50 mcg IVP PRN PRN PRN Reason: Prior to sheath removal Furosemide (Furosemide 10 Mg/Ml Sdv 4ml) 40 mg IVP Q12H [facility] Glucagon (Glucagon 1 Mg/Ml Kit 1 Ml) 1 mg IM ONCE PRN; Protocol PRN Reason: Adult Acute Hypoglycemia Nursing Prot. Dopamine HCl/Dextrose (Intropin Drip) 400 mg in 250 mls @ 15.819 mls/hr IV CONT MARIAN; Protocol Last Titration: 06/01/24 02:30 Dose: 5 mcg/kg/min, 15.82 mls/hr Propofol (Diprivan) 1,000 mg in 100 mls @ 0 mls/hr IV .Q0M [facility]; Protocol Last Titration: 06/01/24 02:10 Dose: 45 mcg/kg/min, 22.78 mls/hr Dextrose (D5w) 500 mls @ 0 mls/hr IV ONCE PRN; Protocol PRN Reason: Adult Acute Hypoglycemia Prot Dextrose (D10w) 125 mls @ 750 mls/hr IV PRN PRN; Protocol PRN Reason: Adult Acute Hypoglycemia Nursing Protocol Dextrose (D10w) 250 mls @ 1,000 mls/hr IV PRN PRN; Protocol PRN Reason: Adult Acute Hypoglycemia Nursing Protocol Fentanyl (Sublimaze) 1,000 mcg in 100 mls @ 0 mls/hr IV .Q0M [facility]; Protocol Last Titration: 06/01/24 03:00 Dose: 75 mcg/hr, 7.5 mls/hr Insulin Human Lispro (Insulin Lispro 100 Unit/1 Ml) 0 unit SUBCUT TID [facility]; Protocol Magnesium Hydroxide (Magnesium Hydroxide 30 Ml Udc) 30 ml PO DAILY PRN PRN Reason: CONSTIPATION Naloxone HCl (Naloxone 0.4 Mg/Ml Sdv) 0.1 mg IVP Q2M PRN PRN Reason: RESPIRATORY RATE < 8/MIN Nitroglycerin (Nitroglycerin 0.4 Mg Sublingual Tablet) 0.4 mg SUBLINGUAL Q5M PRN PRN Reason: CHEST PAIN Ondansetron HCl (Ondansetron 2 Mg/Ml Sdv 2 Ml) 4 mg IVP Q6H PRN PRN Reason: NAUSEA AND VOMITING Pantoprazole Sodium (Pantoprazole 40 Mg Sdv) 40 mg IVP BID [facility] Senna/Docusate Sodium (Sennosides-Docusate Tablet) 1 tab PO DAILY [facility] Temazepam (Temazepam 15 Mg Capsule) 15 mg PO BEDTIME PRN PRN Reason: INSOMNIA Discontinued Medications Aspirin (Aspirin 81 Mg Chew Tablet) 324 mg PO NOW ONE Stop: 05/31/24 21:01 Last Admin: 05/31/24 23:07 Dose: Not Given Atropine Sulfate (Atropine 0.1 Mg/Ml Syr 10 Ml) Confirm Administered Dose 1 mg .ROUTE .STK-MED ONE Stop: 05/31/24 21:05 Atropine Sulfate (Atropine 0.1 Mg/Ml Syr 10 Ml) 1 mg IVP ONCE ONE Stop: 05/31/24 21:11 Last Admin: 05/31/24 21:10 Dose: 1 mg Atropine Sulfate (Atropine 0.1 Mg/Ml Syr 10 Ml) 1 mg IVP ONCE ONE Stop: 05/31/24 21:01 Last Admin: 05/31/24 21:00 Dose: 1 mg Etomidate (Etomidate 2 Mg/Ml Inj Sdv 10 Ml) 20 mg IVP NOW ONE Stop: 05/31/24 21:34 Last Admin: 05/31/24 21:47 Dose: 20 mg Fentanyl (Fentanyl 50 Mcg/Ml Inj 2ml) Confirm Administered Dose 100 mcg .ROUTE .ST-MED ONE Stop: 05/31/24 21:36 Furosemide (Furosemide 10 Mg/Ml Sdv 10ml) Confirm Administered Dose 100 mg .ROUTE .[facility]-MED ONE Stop: 05/31/24 23:17 Heparin Sodium (Porcine) (Heparin 5,000 Unit/Ml Inj 1 Ml) Confirm Administered Dose 5,000 unit .ROUTE .ST-MED ONE Stop: 05/31/24 21:36 Heparin Sodium (Porcine) (Heparin 5,000 Unit/Ml Inj 1 Ml) Confirm Administered Dose 5,000 unit .ROUTE .ST-MED ONE Stop: 05/31/24 22:48 Heparin Sodium (Porcine) (Heparin 5,000 Unit/Ml Inj 1 Ml) Confirm Administered Dose 5,000 unit .ROUTE .ST-MED ONE Stop: 05/31/24 23:31 Heparin Sodium (Porcine) (Heparin 5,000 Unit/Ml Inj 1 Ml) 5,000 unit SUBCUT Q12H [facility] Magnesium Sulfate (Magnesium Sulfate Premix) Confirm Administered Dose 2 gm in 50 mls @ as directed .ROUTE .ST-MED ONE Stop: 05/31/24 21:09 Dopamine HCl/Dextrose (Intropin Drip) Confirm Administered Dose 400 mg in 250 mls @ as directed .ROUTE .STK-MED ONE Stop: 05/31/24 21:09 Lidocaine HCl (Xylocaine) Confirm Administered Dose 20 mls @ as directed .ROUTE .ST-MED ONE Stop: 05/31/24 21:36 Sodium Chloride (Sodium Chloride 0.9%) Confirm Administered Dose 1,000 mls @ as directed .ROUTE .STK-MED ONE Stop: 05/31/24 22:04 Magnesium Sulfate (Magnesium Sulfate Premix) 2 gm in 50 mls @ 50 mls/hr IV ONCE ONE Stop: 05/31/24 22:14 Last Infusion: 05/31/24 21:54 Dose: Infused Fentanyl (Sublimaze) Confirm Administered Dose 1,000 mcg in 100 mls @ as directed .ROUTE .STK-MED ONE Stop: 06/01/24 02:11 Last Admin: 06/01/24 02:38 Dose: Not Given Midazolam HCl (Midazolam 1 Mg/Ml Inj 2 Ml) Confirm Administered Dose 2 mg .ROUTE .STK-MED ONE Stop: 05/31/24 21:36 Nitroglycerin (Nitroglycerin 5 Mg/Ml Sdv 10 Ml) Confirm Administered Dose 50 mg .ROUTE .STK-MED ONE Stop: 05/31/24 22:39 Vecuronium [place] (Vecuronium 10 Mg Sdv) 10 mg IVP ONCE ONE Stop: 05/31/24 21:34 Last Admin: 05/31/24 21:47 Dose: 10 mg Allergies metformin Allergy (Verified 05/31/24 19:39) ADR/ALGY-Paleness Sulfa (Sulfonamide Antibiotics) Allergy (Verified 05/31/24 19:39) ALGY-Hives Home Medications allopurinol 300 mg tablet 300 mg PO DAILY 11/16/19 [History Confirmed 05/26/24] aspirin 81 mg chewable tablet 81 mg PO DAILY 11/16/19 [History Confirmed 05/26/24] glipizide 10 mg tablet, extended release 24 hr 10 mg PO BID 11/16/19 [History Confirmed 05/26/24] metformin 500 mg tablet,extended release 24 hr 1,000 mg PO BID 11/16/19 [History Confirmed 05/26/24] multivitamin 1 tab PO DAILY 11/16/19 [History Confirmed 05/26/24] gabapentin 100 mg capsule 100 mg PO DAILY 01/18/23 [History Confirmed 05/26/24] carvedilol 3.125 mg tablet 6.25 mg (2 x 3.125 mg) PO BID 30 days #120 tabs 04/11/24 [Rx Confirmed 05/26/24] clopidogrel 75 mg tablet 75 mg PO DAILY 05/08/24 [History Confirmed 05/26/24] Cranberry Extract PO 05/26/24 [History Confirmed 05/26/24] amoxicillin 500 mg-potassium clavulanate 125 mg tablet 1 tab PO Q12H 05/26/24 [History Confirmed 05/26/24] atorvastatin 10 mg tablet (Lipitor) 10 mg PO DAILY 05/26/24 [History Confirmed 05/26/24] furosemide 40 mg tablet (Lasix) 40 mg PO BID PRN 05/26/24 [History Confirmed 05/26/24] olmesartan 20 mg tablet (Benicar) 20 mg PO DAILY 05/26/24 [History Confirmed 05/26/24] pantoprazole 40 mg tablet,delayed release 40 mg PO DAILY 05/26/24 [History Confirmed 05/26/24] potassium chloride 20 mEq tablet,extended release 20 meq PO DAILY PRN 05/26/24 [History Confirmed 05/26/24] Discharge Plan Discharge Patient Disposition: Xfer Other Condition: Stable Prescriptions: No Action amoxicillin-pot clavulanate 500-125 mg tablet 1 tab PO Q12H pantoprazole 40 mg tablet,delayed release (DR/EC) 40 mg PO DAILY olmesartan [Benicar] 20 mg tablet 20 mg PO DAILY atorvastatin [Lipitor] 10 mg tablet 10 mg PO DAILY Cranberry Extract PO furosemide [Lasix] 40 mg tablet 40 mg PO BID PRN potassium chloride 20 mEq tablet extended release 20 meq PO DAILY PRN gabapentin 100 mg capsule 100 mg PO DAILY clopidogrel 75 mg tablet 75 mg PO DAILY multivitamin Tablet 1 tab PO DAILY glipizide 10 mg tablet extended release 24hr 10 mg PO BID aspirin 81 mg Tablet,Chewable 81 mg PO DAILY allopurinol 300 mg tablet 300 mg PO DAILY metformin 500 mg tablet extended release 24 hr 1,000 mg PO BID carvedilol 3.125 mg tablet 6.25 mg PO BID 30 Days Qty: 120 0RF Referrals: Nancy Abdi FNP [Primary Care Provider] - Transfer Attestations Time Spent in Transfer Care: greater than 30 min Quality Metrics Clinical Quality Measures [ No reported AMI, CVA or VTE this stay] Coding Level of Care Code Acute Code for [facility] Fwd Diagnoses Coronary artery disease I25.10 Afib I48.91 Bradycardia R00.1 Diabetes E11.9 Sleep apnea G47.30 Syncope R55 Sick sinus syndrome I49.5 Acute exacerbation of CHF (congestive heart failure) I50.9 CHF (NYHA class III, ACC/AHA stage C) I50.9 Chronic kidney disease N18.9 Hypomagnesemia E83.42 Hyperkalemia E87.5
--- NOTE | 2024-06-01 03:23 | ECG_ITS ---
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: : [id number] Requested By: Francesca Sewell Order Number: [id number] Reading MD: TANIA PARKINSON Measurements Intervals [place] Rate: 105 P: -23 CO: 132 QRS: -76 QRSD: 147 T: 57 QT: 392 QTc: 519 Interpretive Statements ELECTRONIC VENTRICULAR PACEMAKER -- CONTOUR ANALYSIS BASED ON INTRINSIC RHYTHM LEFT AXIS DEVIATION [QRS AXIS < -30] RIGHT BUNDLE BRANCH BLOCK [120+ ms QRS DURATION, UPRIGHT V1, 40+ ms S IN Compared to ECG 05/31/2024 21:29:42 There is paced rythm Electronically Signed On 06-05-2024 18:24:06 CDT by TANIA PARKINSON [email or web address]
[2024-06-01] MEDS: propofol 1,000 MG/100 ML INJ 25.31 MG IV (03:45)
[2024-06-01] MEDS: DOPamine drip 400 MG/250 ML PREMIX 15.82 MG IV (03:45)
[2024-06-01 04:16] LABS: Vitamin B12 419 pg/mL (232-1245)
--- NOTE | 2024-06-01 04:50 | PC.NURSE ---
Pt left unit with [facility] trasnport at 0356.
== END 2024-06-01 03:56 | disposition short-term general hospital (02) | DRG 280 ==
LOC: ER 21:39 → CDL 21:54 → ICU 06-01 00:08
PROVIDERS: Internal Medicine; Admitting Provider Internal Medicine Cardiovascular Disease; Emergency Provider Emergency Medicine; PCP Registered Nurse; Visit Provider Internal Medicine Cardiovascular Disease
DX: I49.5 Sick sinus syndrome (principal); J96.90 Respiratory failure, unspecified, unspecified whether with hypoxia or hypercapnia; I21.4 Non-ST elevation (NSTEMI) myocardial infarction; I44.2 Atrioventricular block, complete; I50.1 Left ventricular failure, unspecified; T82.855A Stenosis of coronary artery stent, initial encounter; I25.10 Atherosclerotic heart disease of native coronary artery without angina pectoris; I11.0 Hypertensive heart disease with heart failure; G47.30 Sleep apnea, unspecified; E11.51 Type 2 diabetes mellitus with diabetic peripheral angiopathy without gangrene; E11.22 Type 2 diabetes mellitus with diabetic chronic kidney disease; N18.9 Chronic kidney disease, unspecified; I48.0 Paroxysmal atrial fibrillation; E83.42 Hypomagnesemia; D53.9 Nutritional anemia, unspecified; D63.1 Anemia in chronic kidney disease; Y71.3 Surgical instruments, materials and cardiovascular devices (including sutures) associated with adverse incidents; Z90.49 Acquired absence of other specified parts of digestive tract; Z90.710 Acquired absence of both cervix and uterus; Z87.440 Personal history of urinary (tract) infections; Z87.891 Personal history of nicotine dependence; Z79.899 Other long term (current) drug therapy; Z79.82 Long term (current) use of aspirin; Z79.84 Long term (current) use of oral hypoglycemic drugs; Z88.8 Allergy status to other drugs, medicaments and biological substances; Z88.2 Allergy status to sulfonamides
CPT/HCPCS: 33210; 36415; 36416; 36600; 51702; 70450; 71045; 80048; 80053; 81001; 82607; 82803; 82962; 83690; 83735; 84100; 84443; 84484; 85025; 85347; 85610; 93005; 93458; 94002; 96365; 96366; 96367; 96374; 96375; 99291; C1769; C1887; C1894; J0461; J1265; J1644; J1940; J2250; J2704; J3010; J3475; J3490; J7030; J9999; Q9967